=== PATIENT | female | born 1950 | race Caucasian/White ===

== ENCOUNTER 2024-04-03 08:51 | Inpatient (IN) | payer MEDICARE, MEDICAID ==
[~2024-04-03] VITALS: Ht 170.2 cm; Wt 92.0 kg
--- NOTE | 2024-04-03 09:02 | ECG ---
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
[2024-04-03 09:20] VITALS: PULSE 88; RESP 18; O2SAT 97
--- NOTE | 2024-04-03 09:28 | ED.PDOC ---
HPI Comments 73Y F with PMHx dementia and HTN presents to ED for chief complaint elevated blood pressure. Pt states she is experiencing palpitations, chest tightness, and nausea. Pt denies SOB, vomiting, and diarrhea. No other symptoms reported. BP 174/88 during triage assessment. Chief Complaint: High Blood Pressure Time Seen by MD: 09:17 Reviewed Notes: Nurses Notes, Medications, Allergies Allergies: Coded Allergies: NO KNOWN ALLERGIES (Unverified , 04/03/24) Information Source: Patient Mode of Arrival: EMS Severity: Mild Timing: Hours Duration: Since onset Location: Substernal Radiation: No Radiation Quality: Tightness Onset: At Rest Cardiac Risk Factors: HTN PE Risk Factors: None History of: None Modifying Factors: Nothing Associated Signs and Symptoms: Other Past Medical History PAST MEDICAL HISTORY: Dementia, HTN Surgical History: Denies all surgeries EKG TECH History: Denies all EKG TECH Hx Family History Family History: Unknown Social History Smoker: Non-Smoker Alcohol: Denies ETOH Use Drugs: Denies Drug Use Lives In: Home Constitutional: denies: chills, diaphoresis, fatigue, fever, malaise, sweats, weakness, others EENTM: denies: blurred vision, double vision, ear bleeding, ear discharge, ear drainage, ear pain, ear ringing, eye pain, eye redness, hearing loss, mouth pain, mouth swelling, nasal discharge, nose bleeding, nose congestion, nose pain, photophobia, tearing, throat pain, throat swelling, voice changes, others Respiratory: denies: cough, hemoptysis, orthopnea, SOB at rest, shortness of breath, SOB with excertion, stridor, wheezing, others Cardiovascular: reports: chest pain, palpitations; denies: dizzy spells, diaphoresis, Dyspnea on exertion, edema, irregular heart beat, left arm pain, lightheadedness, PND, syncope, others Gastrointestinal: reports: nausea; denies: abdomen distended, abdominal pain, blood streaked bowels, constipated, diarrhea, dysphagia, difficulty swallowing, hematemesis, melena, poor appetite, poor fluid intake, rectal bleeding, rectal pain, vomiting, others Genitourinary: denies: abnormal vagina bleeding, burning, dyspareunia, dysuria, flank pain, frequency, hematuria, incontinence, pain, , vagina discharge, urgency, others Neurological: denies: dizziness, fainting, headache, left sided numbness, left sided weakness, numbness, paresthesia, pre-existing deficit, right sided numbness, right sided weakness, seizure, speech problems, tingling, tremors, weakness, others Musculoskeletal: denies: back pain, gout, joint pain, joint swelling, muscle pain, muscle stiffness, neck pain, others Integumetry: denies: bruises, change in color, change in hair/nails, dryness, laceration, lesions, lumps, rash, wounds, others Allergic/Immunocompromised: denies: Difficulty Healing, Frequent Infections, Hives, Itching, others Hematologic/Lymphatic: denies: anemia, blood clots, easy bleeding, easy bruising, swollen glands, others Endocrine: denies: excessive hunger, excessive sweating, excessive thirst, excessive urination, flushing, intolerance to cold, intolerance to heat, unexplained weight gain, unexplained weight loss, others Psychiatric: denies: anxiety, bipolar disorder, depression, hopeless, panic disorder, schizophrenia, sleepless, suicidal, others All Other Systems: Reviewed and Negative Physical Exam General Appearance: No Apparent Distress, Normal HEENT: Normal ENT Inspection, Pharynx Normal, TMs Normal Neck: Full Range of Motion, Non-Tender, Normal, Normal Inspection Respiratory: Chest Non-Tender, Lungs Clear, No Accessory Muscle Use, No Respiratory Distress, Normal Breath Sounds Cardiovascular: No Edema, No JVD, No Murmur, No Gallop, Normal Peripheral Pulses, Regular Rate/Rhythm Breast Exam: Deferred Gastrointestinal: No Organomegaly, Non Tender, No Pulsatile Mass, Normal Bowel Sounds, Soft Genitalia: Deferred Pelvic: Deferred Rectal: Deferred Extremities: No calf tenderness, Normal capillary refill, Normal inspection, Normal range of motion, Non-tender, No pedal edema Musculoskeletal : Apperance: Normal Neurologic: Alert, equipment validation specialist II-XII nml as Tested, No Motor Deficits, Normal Affect, Normal Mood, No Sensory Deficits Cerebellar Function: NOT DONE Reflexes: NOT DONE Skin: Dry, Normal Color, Warm Lymphatic: No Adenopathy Was a procedure done? Was a procedure done?: No CP Differential Dx Differential Diagnosis: Electrolyte Disorder, MAT, PAC's Differential Diagnosis: HTN Essential, HTN Accelerated Differential Diagnosis: Myocardial Infarction, Pericarditis X-Ray, Labs, Meds, VS Vital Signs Date Time Temp Pulse Resp B/P (MAP) Pulse Ox O2 Delivery O2 Flow Rate FiO2 04/03/24 12:29 106 17 95 Room Air 04/03/24 12:29 98.4 106 17 169/112 (131) 95 98.4 04/03/24 11:54 98.3 117 20 191/96 (127) 96 98.3 04/03/24 09:20 88 18 97 Room Air* 0 21 04/03/24 09:20 98.7 88 18 154/86 (108) 97 98.7 04/03/24 09:01 98.1 99 16 174/88 (116) 99 04/03/24 08:56 82 Lab Test 04/03/24 10:35 04/03/24 09:35 Range/Units Troponin I High Sensitivity 23 23 </=34 ng/L White Blood Count 7.9 4.4-10.8 10^3/uL Red Blood Count 5.12 4.0-5.20 10^6/uL Hemoglobin 14.0 12.2-16.2 g/dL Hematocrit 41.6 36.0-46.0 % Mean Corpuscular Volume 81.3 80.0-100.0 fL Mean Corpuscular Hemoglobin 27.4 L 28.0-32.0 pg Mean Corpuscular Hemoglobin Concent 33.7 32.0-36.0 g/dL Red Cell Distribution Width 16.1 H 11.8-14.3 % Platelet Count 156 140-450 10^3/uL Mean Platelet Volume 7.1 6.9-10.8 fL Neutrophils (%) (Auto) 59.6 37.0-80.0 % Lymphocytes (%) (Auto) 29.1 10.0-50.0 % Monocytes (%) (Auto) 8.8 0.0-12.0 % Eosinophils (%) (Auto) 2.1 0.0-7.0 % Basophils (%) (Auto) 0.4 0.0-2.0 % Neutrophils # (Auto) 4.7 1.6-8.6 10 ^3/uL Lymphocytes # (Auto) 2.3 0.4-5.4 10 ^3/uL Monocytes # (Auto) 0.7 0-1.3 10 ^3/uL Eosinophils # (Auto) 0.2 0-0.8 10 ^3/uL Basophils # (Auto) 0 0-0.2 10 ^3/uL Nucleated Red Blood Cells 0.1 % Sodium Level 138 136-145 mmol/L Potassium Level 3.9 3.5-5.1 mmol/L Chloride Level 102 98-107 mmol/L Carbon Dioxide Level 28 20-31 mmol/L Anion Gap 8 5-15 Blood Urea Nitrogen 16 9-23 mg/dL Creatinine 0.84 0.550-1.02 mg/dL Glomerular Filtration Rate Calc 74 >90 mL/min BUN/Creatinine Ratio 19.0 10.0-20.0 Serum Glucose 145 H 74-106 mg/dL Calcium Level 10.9 H 8.7-10.4 mg/dL Time of 1ST Reevaluation: 09:47 Reevaluation 1ST: Unchanged Patient Education/Counseling: Diagnosis, Treatment Family Education/Counseling: No Family Present Departure 1 Departure Time of Disposition: 12:31 (Patient presented with hypertension and symptoms concerning for hypertensive emergency. Patient is receiving iv blood pressure medications requiring intensive monitoring. Data: 1. I ordered and reviewed the result of at least 3 labs including a CBC, BMP, and Urinalysis. 2. I indepen dently interpreted the following tests: CT Brain: Which appears benign. EKG which is Normal Sinus RhythmRisk:This patient has a high risk of morbidity due to further diagnostic testing or treatment and may suffer from an acute cardiac disorder. Workup reveals hypertensive emergency and patient should be admitted for further workup. and possible expert consultation. ) Impression: Primary Impression: Hypertensive emergency Additional Impression: Acute chest pain Disposition: 09 ADMITTED INPATIENT Admit to: Med Surg Condition: Serious Critical Care Note Critical Care Time?: Yes Critical care comment: Acute chest pain Authorized and Performed by: Nuha Dubois MD Total critical care time: Approximately 37 minutes Due to a high probability of clinically significant, life threatening deterioration, the patient required my highest level of preparedness to intervene emergently and I personally spent this critical care time directly and personally managing the patient. This critical care time included obtaining a history; examining the patient; pulse oximetry; ordering and review of studies; arranging urgent treatment with development of a management plan; evaluation of patient's response to treatment; frequent reassessment; and, discussions with other providers. This critical care time was performed to assess and manage the high probability of imminent, life-threatening deterioration that could result in multi-organ failure. It was exclusive of separately billable procedures and treating other patients and teaching time. Please see my other sections and the rest of the note for further information on patient assessment and treatment. Stability Stability form required: No Heart Score Heart Score: Heart Score Response (Comments) Value History Slightly Suspicious 0 EKG Repolarization Disturb 1 Age >65 2 Risk Factors 1 or 2 risk factors 1 Troponin 1-2 x's Normal limit 1 Total 5 I personally scribed for NUHA DUBOIS MD ([email or web address]) on 04/03/24 at 09:28. Electronically submitted by Nila Grubbs ([email or web address]). NUHA DUBOIS MD Apr 03, 2024 09:28
[2024-04-03 09:49] LABS: Basophils # (auto) 0 10 ^3/uL (0-0.2); Basophils % (auto) 0.4 % (0.0-2.0); Eosinophils # (auto) 0.2 10 ^3/uL (0-0.8); Eosinophils % (auto) 2.1 % (0.0-7.0); Hematocrit 41.6 % (36.0-46.0); Lymphocytes # (auto) 2.3 10 ^3/uL (0.4-5.4); Lymphocytes % (auto) 29.1 % (10.0-50.0); Mean Corpuscular Hemoglobin 27.4 pg (28.0-32.0); Mean Corpuscular Hgb Conc. 33.7 g/dL (32.0-36.0); Mean Corpuscular Volume 81.3 fL (80.0-100.0); Monocytes # (auto) 0.7 10 ^3/uL (0-1.3); Monocytes % (auto) 8.8 % (0.0-12.0); Neutrophils # (auto) 4.7 10 ^3/uL (1.6-8.6); Neutrophils % (auto) 59.6 % (37.0-80.0); Nucleated Red Blood Cells % 0.1 %; Platelet Count (auto) 156 10^3/uL (140-450); Red Blood Cells 5.12 10^6/uL (4.0-5.20); Red Cell Distribution Width 16.1 % (11.8-14.3); White Blood Cell 7.9 10^3/uL (4.4-10.8)
[2024-04-03 11:46] LABS: Chloride 102 mmol/L (98-107); Potassium 3.9 mmol/L (3.5-5.1); Sodium 138 mmol/L (136-145)
[2024-04-03 11:47] LABS: Anion Gap 8 (5-15); Carbon Dioxide 28 mmol/L (20-31)
[2024-04-03 11:53] LABS: Blood Urea Nitrogen 16 mg/dL (9-23)
[2024-04-03 12:08] LABS: Calcium 10.9 mg/dL (8.7-10.4)
[2024-04-03 12:10] LABS: Glucose 145 mg/dL (74-106)
[2024-04-03] MEDS: hydrALAZINE HCL 20 MG/ML VL IV ONE (13:15)
[2024-04-03] MEDS ORDERED: METO25TA93 PO (13:44)
[2024-04-03] MEDS ORDERED: QUET100T47 PO (13:44)
[2024-04-03] MEDS ORDERED: MELA3TAB42 OR (13:44)
[2024-04-03] MEDS ORDERED: DIVA-139 PO (13:44)
[2024-04-03] MEDS ORDERED: LEVO50TA7 PO (13:44)
[2024-04-03] MEDS ORDERED: PANT40TA2 PO (13:44)
[2024-04-03] MEDS ORDERED: LORA-1121 PO (13:44)
[2024-04-03] MEDS ORDERED: APIX5TAB PO (13:44)
[2024-04-03] MEDS ORDERED: METF-372 PO (13:44)
[2024-04-03] MEDS ORDERED: ONDANSETRON HCL 4 MG/2 ML VIAL IV PRN (13:45)
[2024-04-03] MEDS ORDERED: MORPHINE SULFATE INJ 2 MG/ml SYRG IV PRN (13:45)
[2024-04-03] MEDS ORDERED: NITROGLYCERIN 0.4 MG SL TAB SL PRN (13:45)
[2024-04-03] MEDS ORDERED: DEXTROSE (50%) 50ML SYRG IV PRN (13:45)
--- NOTE | 2024-04-03 13:58 | DVHHP2 ---
History of Present Illness Reason for Visit: Hypertension History of Present Illness Xochitl Lane is a 73-year-old female with past medical history of diabetes, hypertension, hyperlipidemia, atrial fibrillation, anxiety, dementia, and osteoarthritis, who came to the hospital today due to hypertension. Patient has a history of dementia, she is alert and oriented, however she is not able to answer questions appropriately. When asked why she came she stated to "get a check up" at first, then she stated "because they don't have doctors where I live". She is unclear on what medications she takes or why. Will admit and treat her hypertension. 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 Endocrine: Diabetes, Hypothyroidism Past Surgical History: Appendectomy, Cholecystectomy Family History: None Smoke: No ALCOHOL: none Drugs: None Lives: Skilled Nursing Review of Systems Constitutional: No: Fever, Chills, Sweats, Weakness, Malaise, Other Eyes: No: Pain, Vision change, Conjunctivae inflammation, Eyelid inflammation, Other, Redness ENT: No: Ear pain, Ear discharge, Nose pain, Nose discharge, Nose congestion, Mouth pain, Mouth swelling, Throat pain, Throat swelling, Other Respiratory: No: Cough, Dry, Shortness of breath, SOB with excertion, Wheezing, Hemoptysis, Pleuritic Pain, Sputum, Wheezing, Other Cardiovascular: No: Chest Pain, Palpitations, Orthopnea, Paroxysmal Noc. Dyspnea, Edema, Lt Headedness, Other Gastrointestinal: No: Nausea, Vomiting, Abdominal Pain, Diarrhea, Constipation, Melena, Hematochezia, Other Genitourinary: No Dysuria, No Frequency, No Incontinence, No Hematuria, No Retention, No Other Musculoskeletal: No: other, neck pain, shoulder pain, arm pain, back pain, hand pain, leg pain, foot pain Skin: No: Rash, Lesions, Jaundice, Bruising, Other Neurological: No: Weakness, Numbness, Incoordination, Change in speech, Confusion, Seizures, Other Allergies: Coded Allergies: Codeine (Verified Allergy, Unknown, 04/03/24) NSAIDs (Verified Allergy, Unknown, 04/03/24) Penicillins (Verified Allergy, Unknown, 04/03/24) Medications Current Medications Medications Dose Ordered Sig/Mee Route Start Time Stop Time Status Last Admin Dose Admin Sodium Chloride 10 ml Q8HR IV 04/03/24 14:00 UNV Acetaminophen/ Hydrocodone Bitart 1 tab Q4HP PRN PO 04/03/24 13:45 UNV Ondansetron HCl 4 mg Q4HP PRN IV 04/03/24 13:45 UNV Docusate Sodium 100 mg BIDPRN PRN PO 04/03/24 13:45 UNV Acetaminophen 650 mg Q6HP PRN PO 04/03/24 13:45 UNV Nitroglycerin 0.4 mg Q5MINP PRN SL 04/03/24 13:45 UNV Morphine Sulfate 2 mg Q30M PRN IV 04/03/24 13:45 UNV Exam Vital Signs Vital Signs Date Time Temp Pulse Resp B/P (MAP) Pulse Ox O2 Delivery O2 Flow Rate FiO2 04/03/24 13:15 191/96 04/03/24 12:29 106 17 95 Room Air 04/03/24 12:29 98.4 98.4 04/03/24 09:20 0 21 General Appearance: Alert, Oriented X3, Cooperative, mild distress HEENT: Atraumatic, PERRLA Respiratory: Clear to auscultation, Normal air movement Cardiovascular: Normal S1, Normal S2, Other (Tachycardia) Abdominal: Normal bowel sounds, Soft, No tenderness Extremities: No clubbing, No cyanosis, No edema, Normal pulses, No tenderness/swelling Skin: No rashes, No significant lesion (lesion to left nostril) Neuro: Normal gait, Normal speech, Strength at 5/5 X4 ext, Normal tone Psych/Mental Status: Mood NL, Other (altered) Labs/Xrays Labs Test 04/03/24 12:46 04/03/24 09:35 Range/Units White Blood Count 7.9 4.4-10.8 10^3/uL Red Blood Count 5.12 4.0-5.20 10^6/uL Hemoglobin 14.0 12.2-16.2 g/dL Hematocrit 41.6 36.0-46.0 % Mean Corpuscular Volume 81.3 80.0-100.0 fL Mean Corpuscular Hemoglobin 27.4 L 28.0-32.0 pg Mean Corpuscular Hemoglobin Concent 33.7 32.0-36.0 g/dL Red Cell Distribution Width 16.1 H 11.8-14.3 % Platelet Count 156 140-450 10^3/uL Mean Platelet Volume 7.1 6.9-10.8 fL Neutrophils (%) (Auto) 59.6 37.0-80.0 % Lymphocytes (%) (Auto) 29.1 10.0-50.0 % Monocytes (%) (Auto) 8.8 0.0-12.0 % Eosinophils (%) (Auto) 2.1 0.0-7.0 % Basophils (%) (Auto) 0.4 0.0-2.0 % Neutrophils # (Auto) 4.7 1.6-8.6 10 ^3/uL Lymphocytes # (Auto) 2.3 0.4-5.4 10 ^3/uL Monocytes # (Auto) 0.7 0-1.3 10 ^3/uL Eosinophils # (Auto) 0.2 0-0.8 10 ^3/uL Basophils # (Auto) 0 0-0.2 10 ^3/uL Nucleated Red Blood Cells 0.1 % Sodium Level 138 136-145 mmol/L Potassium Level 3.9 3.5-5.1 mmol/L Chloride Level 102 98-107 mmol/L Carbon Dioxide Level 28 20-31 mmol/L Anion Gap 8 5-15 Blood Urea Nitrogen 16 9-23 mg/dL Creatinine 0.84 0.550-1.02 mg/dL Glomerular Filtration Rate Calc 74 >90 mL/min BUN/Creatinine Ratio 19.0 10.0-20.0 Serum Glucose 145 H 74-106 mg/dL Calcium Level 10.9 H 8.7-10.4 mg/dL Assessment/Plan Assessment/Plan Assessment: Hypertensive emergency, Diabetes, Dementia, Anxiety, Hypothyroidism, Plan: Admit to Tele, Home medications reconciled, Consider Cardiology consult, PRN antihypertensives, Continuous tele monitoring, Accu checks Q AC&HS with sliding scale, Plan discussed with: Patient My Orders Orders - LUCINDA BARRETO Procedure Category Date Status Time Admit ADMIT 04/03/24 Transmitted 13:37 Code Status CODE 04/03/24 Transmitted 13:37 Sodium Chloride Lock PHA 04/03/24 Logged (Saline Lock Ns) 14:00 Hydrocodone-Acet PHA 04/03/24 Logged 5/325mg Tab ([place] 13:45 Ondansetron Hcl PHA 04/03/24 Logged (Zofran) 13:45 Docusate Sodium PHA 04/03/24 Logged Capsule (Colace 13:45 Fall Risk Precautions MEET 04/03/[address] 13:37 Complete Blood Count LAB 04/04/24 Verified 04:00 Comprehensive LAB 04/04/24 Verified Metabolic Panel 04:00 Cardiac DIET 04/03/24 Transmitted Diet-2gna,Lofat,Lochol Dinner Condition: Serious MEET 04/03/24 In Process 13:37 Acetaminophen Tablet PHA 04/03/24 Logged (Tylenol Tablet) 13:45 Nitroglycerin PHA 04/03/24 Logged Sublingual (Ntrostat 13:45 Morphine Sulfate PHA 04/03/24 Logged Injection 13:45 Stat Ekg For Chest MEET 04/03/24 In Process Pain 13:37 Notify Md Of Changes MEET 04/03/24 In Process From Base 13:37 Manager Relocation For MEET 04/03/24 In Process 24 Hours 13:37 Emergency Dysrhythmia MEET 04/03/24 In Process Protocol 13:37 Rhythm Strips Once [facility] 04/03/24 In Process Every Shift 13:37 Oxygen By Nasal RT 04/03/24 Transmitted Cannula 13:37 Glucose Blood PHA 04/03/24 Verified (Accu-Chek Comfort 17:00 Bedtime Insulin Scale PHA 04/03/24 Verified 22:00 Moderate Insulin Ss PHA 04/03/24 Verified 17:00 Dextrose 50% Syringe PHA 04/03/24 Verified 13:45 Apixaban (Eliquis) PHA 04/03/24 Verified 22:[address] Tablet PHA 04/03/24 Verified (Depakote "Dr" Tabl 22:00 Levothyroxine Tablet PHA 04/04/24 Verified (Synthroid Tablet) 10:00 Lorazepam Tablet PHA 04/03/24 Verified (Ativan Tablet) 22:00 Pantoprazole Tablet PHA 04/04/24 Verified (Protonix Tablet) 10:00 Quetiapine Fumarate PHA 04/03/24 Verified Tablet (Seroquel Tab 18:00 (Nf) Melatonin PHA 04/03/24 Verified 22:00 (Nf) Metoprolol PHA 04/04/24 Verified Succinate (Metoprolol 10:00 Date of Service: Apr 03, 2024 Billing Provider: LUCINDA BARRETO Common Visit Codes: [id number] INP/OBS CARE (MOD) LUCINDA BARRETO Apr 03, 2024 13:58
[2024-04-03] MEDS: SODIUM CHLOR 0.9% PF (SALINE LOCK) 10ML VIAL/SYR IV SCH (14:00)
[2024-04-03] MEDS: METOPROLOL SUCCINATE XL 50 MG TAB PO ONE (15:00)
[2024-04-03] MEDS: ACCU-CHEK COMFORT CURVE STRIP VI SCH (17:04)
[2024-04-03] MEDS: InsuLIN REG 1unit/0.01ml Soln (100units/ml) SC SCH ×2 (17:06→22:25)
[2024-04-03] MEDS: QUEtiapine FUMARATE 100 MG TAB PO SCH (19:01)
[2024-04-03 19:35] VITALS: PULSE 96; RESP 16; O2SAT 95
[2024-04-03 21:00] VITALS: BP 164/84; PULSE 74; RESP 18; TEMP 97.2; O2SAT 96
[2024-04-03] MEDS: MELATONIN 3 MG PO SCH (22:00)
[2024-04-03] MEDS: LORazepam 0.5 MG TAB PO SCH (22:05)
[2024-04-03] MEDS: APIXABAN 5 MG TAB PO SCH (22:06)
[2024-04-03 22:11] VITALS: BP 164/84; PULSE 78; RESP 20; TEMP 97.8; O2SAT 96
[2024-04-03] MEDS: hydrALAZINE HCL 20 MG/ML VL IV PRN (22:30)
[2024-04-04] MEDS: TEMAZEPAM 15 MG CAP PO ONE (00:35)
[2024-04-04 01:00] VITALS: BP 116/67; PULSE 96; RESP 17; TEMP 97.4; O2SAT 96
[2024-04-04 05:00] VITALS: BP 146/80; PULSE 94; RESP 18; TEMP 97.3; O2SAT 97
[2024-04-04] MEDS: ACETAMINOPHEN 325 MG TAB PO PRN (06:15)
[2024-04-04] MEDS: LEVOTHYROXINE SODIUM 50 MCG TAB PO SCH (06:15)
[2024-04-04 07:07] LABS: Basophils # (auto) 0 10 ^3/uL (0-0.2); Basophils % (auto) 0.6 % (0.0-2.0); Eosinophils # (auto) 0.1 10 ^3/uL (0-0.8); Eosinophils % (auto) 1.7 % (0.0-7.0); Hematocrit 42.7 % (36.0-46.0); Hemoglobin 14.4 g/dL (12.2-16.2); Lymphocytes # (auto) 1.9 10 ^3/uL (0.4-5.4); Lymphocytes % (auto) 26.6 % (10.0-50.0); Mean Corpuscular Hemoglobin 27.2 pg (28.0-32.0); Mean Corpuscular Hgb Conc. 33.8 g/dL (32.0-36.0); Mean Corpuscular Volume 80.5 fL (80.0-100.0); Monocytes # (auto) 0.8 10 ^3/uL (0-1.3); Monocytes % (auto) 10.7 % (0.0-12.0); Neutrophils # (auto) 4.4 10 ^3/uL (1.6-8.6); Neutrophils % (auto) 60.4 % (37.0-80.0); Platelet Count (auto) 159 10^3/uL (140-450); Red Cell Distribution Width 16.2 % (11.8-14.3); White Blood Cell 7.2 10^3/uL (4.4-10.8)
[2024-04-04 07:30] LABS: Alanine Aminotransferase 11 U/L (7-40); Alkaline Phosphatase 89 U/L (46-116); Anion Gap 8 (5-15); BUN/Creatinine Ratio 16.3 (10.0-20.0); Blood Urea Nitrogen 13 mg/dL (9-23); Carbon Dioxide 26 mmol/L (20-31); Chloride 104 mmol/L (98-107); Sodium 138 mmol/L (136-145)
[2024-04-04 07:31] LABS: Albumin 4.6 g/dL (3.2-4.8); Calcium 10.8 mg/dL (8.7-10.4); Glucose 175 mg/dL (74-106); Potassium 3.5 mmol/L (3.5-5.1)
[2024-04-04 07:32] LABS: Aspartate Aminotransferase 12 U/L (13-40); Bilirubin, Total 0.8 mg/dL (0.2-1.0)
[2024-04-04 08:57] VITALS: BP 135/78; PULSE 74; RESP 20; TEMP 98.5; O2SAT 97
[2024-04-04] MEDS: PANTOPRAZOLE 40 MG TAB PO SCH (09:11)
[2024-04-04] MEDS: METOPROLOL SUCCINATE XL 50 MG TAB PO SCH (09:11)
[2024-04-04] MEDS: HYDROcodone-ACET 5/325MG TAB PO PRN (12:09)
[2024-04-04 13:27] VITALS: BP 147/79; PULSE 98; RESP 20; TEMP 97.9; O2SAT 93
[2024-04-04 17:08] VITALS: BP 149/91; PULSE 93; RESP 20; TEMP 98.1; O2SAT 98
[2024-04-04 20:58] VITALS: BP 173/83; PULSE 78; RESP 18; TEMP 97.5; O2SAT 97
[2024-04-04] MEDS: MUPIROCIN 2% OINT 15gm or 22gm FOR MRSA NARES EACHNOSTRI SCH (21:45)
[2024-04-04] MEDS: hydrALAZINE HCL 10 MG TAB PO PRN (21:56)
--- NOTE | 2024-04-05 07:46 | DVH ---
EXAM: CHEST PORTABLE Indication: chest pain Technique: Single frontal view of the chest was obtained Comparison: None FINDINGS: Lines and Tubes: None Lungs: No focal consolidation. Pleura: No effusion. No pneumothorax. Cardiomediastinal contours: Unremarkable Bones: No acute osseous abnormality. IMPRESSION: No acute cardiopulmonary disease. I GARCIA
[2024-04-05 09:00] VITALS: BP 167/92; PULSE 83; RESP 18; O2SAT 95
[2024-04-05 11:19] VITALS: BP 162/91; PULSE 89; RESP 18; O2SAT 97
--- NOTE | 2024-04-05 12:00 | DVHPN2 ---
Subjective Still confused Refusing her medications Blood pressure is still high Changes from previous H/P or p: Changes Eyes: No Pain, No Vision change, No Conjunctivae inflammation, No Eyelid inflammation, No Other, No Redness ENT: No Ear pain, No Ear discharge, No Nose pain, No Nose discharge, No Nose congestion, No Mouth pain, No Mouth swelling, No Throat pain, No Throat swelling, No Other Cardiovascular: No Chest Pain, No Palpitations, No Orthopnea, No Paroxysmal Noc. Dyspnea, No Edema, No Lt Headedness, No Other Respiratory: No Cough, No Dry, No Shortness of breath, No SOB with excertion, No Wheezing, No Hemoptysis, No Pleuritic Pain, No Sputum, No Other Gastrointestinal: No Nausea, No Vomiting, No Abdominal Pain, No Diarrhea, No Constipation, No Melena, No Hematochezia, No Other Genitourinary: No Dysuria, No Frequency, No Incontinence, No Hematuria, No Retention, No Other Musculoskeletal: No other, No neck pain, No shoulder pain, No arm pain, No back pain, No hand pain, No leg pain, No foot pain Skin: No Rash, No Lesions, No Jaundice, No Bruising, No Other Objective Vitals Vital Signs Date Time Temp Pulse Resp B/P (MAP) Pulse Ox O2 Delivery O2 Flow Rate FiO2 04/05/24 11:19 89 18 162/91 (114) 97 04/05/24 08:01 Room Air* 0 21 04/04/24 20:58 97.5 97.5 Intake/Output Intake and Output 04/05/24 07:00 Intake Total 3120 ml Balance 3120 ml Intake Oral 3120 ml # Voids 10 General Appearance: Alert, Oriented X3 Lungs: Clear to auscultation, Normal air movement Cardiovascular: Regular rate, Normal S1, Normal S2 Abdomen: Normal bowel sounds, Soft, No tenderness Extremities: No edema Medications Current Medications Medications Dose Ordered Sig/Mee Route Start Time Stop Time Status Last Admin Dose Admin Sodium Chloride 10 ml Q8HR IV 04/03/24 14:00 04/05/24 06:17 10 ML Acetaminophen/ Hydrocodone Bitart 1 tab Q4HP PRN PO 04/03/24 13:45 04/04/24 12:09 1 TAB Ondansetron HCl 4 mg Q4HP PRN IV 04/03/24 13:45 Docusate Sodium 100 mg BIDPRN PRN PO 04/03/24 13:45 Acetaminophen 650 mg Q6HP PRN PO 04/03/24 13:45 04/04/24 17:25 650 MG Nitroglycerin 0.4 mg Q5MINP PRN SL 04/03/24 13:45 Morphine Sulfate 2 mg Q30M PRN IV 04/03/24 13:45 Hold Diagnostic Test (Pha) 1 strip ACHS 04/03/24 17:00 04/05/24 11:36 1 STRIP Insulin Human Regular HS SC 04/03/24 22:00 04/04/24 21:49 4 UNITS Insulin Human Regular AC SC 04/03/24 17:00 04/05/24 11:46 3 UNITS Dextrose 50 ml UD PRN IV 04/03/24 13:45 Apixaban 5 mg BID PO 04/03/24 22:00 04/05/24 10:25 5 MG Divalproex Sodium 125 mg BID PO 04/03/24 22:00 Hold Levothyroxine Sodium 50 mcg DAILY@0700 PO 04/04/24 07:00 04/05/24 06:23 50 MCG Lorazepam 0.5 mg HS PO 04/03/24 22:00 04/04/24 21:56 0.5 MG Pantoprazole Sodium 40 mg DAILY PO 04/04/24 10:00 04/05/24 10:25 40 MG Quetiapine Fumarate 100 mg QID PO 04/03/24 18:00 04/05/24 11:29 100 MG Patient Own Medication 3 mg HS PO 04/03/24 22:00 Metoprolol Succinate 25 mg DAILY PO 04/04/24 10:00 04/05/24 10:26 25 MG Mupirocin 1 applic BID EACHNOSTRI 04/04/24 22:00 04/09/24 21:59 04/05/24 10:29 1 APPLIC Hydralazine HCl 10 mg Q6HP PRN PO 04/04/24 17:30 04/05/24 08:33 10 MG Laboratory Results Laboratory Tests 04/04/24 06:24 Microbiology Microbiology Date/Time Source Procedure Growth Status 04/04/24 00:45 Nose MRSA Screen - Final Methicillin Resistant S.aureus Complete Assessment/Plan Assessment/Plan Uncontrolled hypertension Hypertensive emergency Type 2 diabetes Dementia Anxiety Hypothyroidism Atrial fibrillation Mixed hyperlipidemia Plan Increase metoprolol to 50 mg daily for better blood pressure control Continue the home medications including Eliquis and levothyroxine and Seroquel Sitter at the bedside Plan discussed with: Patient My Orders Orders - EFRAIN CASTRO MD Procedure Category Date Status Time Mupirocin 2% Oint PHA 04/04/24 In Process Mrsa Nares (Bactroban 22:00 Hydralazine Hcl PHA 04/04/24 In Process Tablet (Apresoline 17:30 Date of Service: Apr 05, 2024 Billing Provider: EFRAIN CASTRO MD Common Visit Codes: [id number] INP/OBS CARE(HIGH) EFRAIN CASTRO MD Apr 05, 2024 12:00
--- NOTE | 2024-04-05 12:01 | DVHPN2 ---
Subjective 73-year-old female with a history of hypertension, atrial fibrillation, dementia was admitted for confusion and uncontrolled hypertension Changes from previous H/P or p: Changes Eyes: No Pain, No Vision change, No Conjunctivae inflammation, No Eyelid inflammation, No Other, No Redness ENT: No Ear pain, No Ear discharge, No Nose pain, No Nose discharge, No Nose congestion, No Mouth pain, No Mouth swelling, No Throat pain, No Throat swelling, No Other Cardiovascular: No Chest Pain, No Palpitations, No Orthopnea, No Paroxysmal Noc. Dyspnea, No Edema, No Lt Headedness, No Other Respiratory: No Cough, No Dry, No Shortness of breath, No SOB with excertion, No Wheezing, No Hemoptysis, No Pleuritic Pain, No Sputum, No Other Gastrointestinal: No Nausea, No Vomiting, No Abdominal Pain, No Diarrhea, No Constipation, No Melena, No Hematochezia, No Other Genitourinary: No Dysuria, No Frequency, No Incontinence, No Hematuria, No Retention, No Other Musculoskeletal: No other, No neck pain, No shoulder pain, No arm pain, No back pain, No hand pain, No leg pain, No foot pain Skin: No Rash, No Lesions, No Jaundice, No Bruising, No Other Objective Vitals Vital Signs Date Time Temp Pulse Resp B/P (MAP) Pulse Ox O2 Delivery O2 Flow Rate FiO2 04/05/24 11:19 89 18 162/91 (114) 97 04/05/24 08:01 Room Air* 0 21 04/04/24 20:58 97.5 97.5 Intake/Output Intake and Output 04/05/24 07:00 Intake Total 3120 ml Balance 3120 ml Intake Oral 3120 ml # Voids 10 General Appearance: Alert, Oriented X3 Lungs: Clear to auscultation, Normal air movement Cardiovascular: Regular rate, Normal S1, Normal S2 Abdomen: Normal bowel sounds, Soft, No tenderness Extremities: No edema Medications Current Medications Medications Dose Ordered Sig/Mee Route Start Time Stop Time Status Last Admin Dose Admin Sodium Chloride 10 ml Q8HR IV 04/03/24 14:00 04/05/24 06:17 10 ML Acetaminophen/ Hydrocodone Bitart 1 tab Q4HP PRN PO 04/03/24 13:45 04/04/24 12:09 1 TAB Ondansetron HCl 4 mg Q4HP PRN IV 04/03/24 13:45 Docusate Sodium 100 mg BIDPRN PRN PO 04/03/24 13:45 Acetaminophen 650 mg Q6HP PRN PO 04/03/24 13:45 04/04/24 17:25 650 MG Nitroglycerin 0.4 mg Q5MINP PRN SL 04/03/24 13:45 Morphine Sulfate 2 mg Q30M PRN IV 04/03/24 13:45 Hold Diagnostic Test (Pha) 1 strip ACHS 04/03/24 17:00 04/05/24 11:36 1 STRIP Insulin Human Regular HS SC 04/03/24 22:00 04/04/24 21:49 4 UNITS Insulin Human Regular AC SC 04/03/24 17:00 04/05/24 11:46 3 UNITS Dextrose 50 ml UD PRN IV 04/03/24 13:45 Apixaban 5 mg BID PO 04/03/24 22:00 04/05/24 10:25 5 MG Divalproex Sodium 125 mg BID PO 04/03/24 22:00 Hold Levothyroxine Sodium 50 mcg DAILY@0700 PO 04/04/24 07:00 04/05/24 06:23 50 MCG Lorazepam 0.5 mg HS PO 04/03/24 22:00 04/04/24 21:56 0.5 MG Pantoprazole Sodium 40 mg DAILY PO 04/04/24 10:00 04/05/24 10:25 40 MG Quetiapine Fumarate 100 mg QID PO 04/03/24 18:00 04/05/24 11:29 100 MG Patient Own Medication 3 mg HS PO 04/03/24 22:00 Metoprolol Succinate 25 mg DAILY PO 04/04/24 10:00 04/05/24 10:26 25 MG Mupirocin 1 applic BID EACHNOSTRI 04/04/24 22:00 04/09/24 21:59 04/05/24 10:29 1 APPLIC Hydralazine HCl 10 mg Q6HP PRN PO 04/04/24 17:30 04/05/24 08:33 10 MG Laboratory Results Laboratory Tests 04/04/24 06:24 Microbiology Microbiology Date/Time Source Procedure Growth Status 04/04/24 00:45 Nose MRSA Screen - Final Methicillin Resistant S.aureus Complete Assessment/Plan Assessment/Plan Uncontrolled hypertension Hypertensive emergency Type 2 diabetes Dementia Anxiety Hypothyroidism Atrial fibrillation Mixed hyperlipidemia Plan Start her home medications Including Seroquel and metoprolol and levothyroxine and Eliquis Sitter at the bedside Full code Advance directives discussed for 20 minutes Plan discussed with: Patient, Other My Orders Orders - EFRAIN CASTRO MD Procedure Category Date Status Time Mupirocin 2% Oint PHA 04/04/24 In Process Mrsa Nares (Bactroban 22:00 Hydralazine Hcl PHA 04/04/24 In Process Tablet (Apresoline 17:30 Date of Service: Apr 04, 2024 Billing Provider: EFRAIN CASTRO MD Common Visit Codes: [id number] INP/OBS CARE(HIGH) Secondary Visit Codes: [id number] CARE PLAN 30 MINUTES EFRAIN CASTRO MD Apr 05, 2024 12:01
[2024-04-05] MEDS: METOPROLOL SUCCINATE XL 50 MG TAB PO ONE (14:06)
[2024-04-05 21:00] VITALS: BP 165/87; PULSE 87; RESP 18; TEMP 98.7; O2SAT 94
[2024-04-06 01:00] VITALS: BP 164/86; PULSE 87; RESP 19; TEMP 98.1; O2SAT 95
[2024-04-06] MEDS: METOPROLOL SUCCINATE XL 50 MG TAB PO SCH (01:32)
[2024-04-06 05:00] VITALS: BP 149/77; PULSE 90; RESP 19; TEMP 98; O2SAT 97
[2024-04-06 08:53] VITALS: BP 140/76; PULSE 81; RESP 17; TEMP 98.6; O2SAT 98
[2024-04-06] MEDS ORDERED: METOPROLOL SUCCINATE XL 50 MG TAB PO SCH (10:00)
--- NOTE | 2024-04-06 11:13 | DVHPN2 ---
Subjective No new complaints Blood pressure is still elevated Changes from previous H/P or p: Changes Eyes: No Pain, No Vision change, No Conjunctivae inflammation, No Eyelid inflammation, No Other, No Redness ENT: No Ear pain, No Ear discharge, No Nose pain, No Nose discharge, No Nose congestion, No Mouth pain, No Mouth swelling, No Throat pain, No Throat swelling, No Other Cardiovascular: No Chest Pain, No Palpitations, No Orthopnea, No Paroxysmal Noc. Dyspnea, No Edema, No Lt Headedness, No Other Respiratory: No Cough, No Dry, No Shortness of breath, No SOB with excertion, No Wheezing, No Hemoptysis, No Pleuritic Pain, No Sputum, No Other Gastrointestinal: No Nausea, No Vomiting, No Abdominal Pain, No Diarrhea, No Constipation, No Melena, No Hematochezia, No Other Genitourinary: No Dysuria, No Frequency, No Incontinence, No Hematuria, No Retention, No Other Musculoskeletal: No other, No neck pain, No shoulder pain, No arm pain, No back pain, No hand pain, No leg pain, No foot pain Skin: No Rash, No Lesions, No Jaundice, No Bruising, No Other Objective Vitals Vital Signs Date Time Temp Pulse Resp B/P (MAP) Pulse Ox O2 Delivery O2 Flow Rate FiO2 04/06/24 08:53 98.6 81 17 140/76 (97) 98 98.6 04/05/24 20:00 Room Air* 0 21 Intake/Output Intake and Output 04/06/24 07:00 Intake Total 3334 ml Balance 3334 ml Intake Oral 3334 ml # Voids 8 # Bowel Movements 1 General Appearance: Alert, Oriented X3 Lungs: Clear to auscultation, Normal air movement Cardiovascular: Regular rate, Normal S1, Normal S2 Abdomen: Normal bowel sounds, Soft, No tenderness Extremities: No edema Medications Current Medications Medications Dose Ordered Sig/Mee Route Start Time Stop Time Status Last Admin Dose Admin Sodium Chloride 10 ml Q8HR IV 04/03/24 14:00 04/06/24 05:34 10 ML Acetaminophen/ Hydrocodone Bitart 1 tab Q4HP PRN PO 04/03/24 13:45 04/04/24 12:09 1 TAB Ondansetron HCl 4 mg Q4HP PRN IV 04/03/24 13:45 Docusate Sodium 100 mg BIDPRN PRN PO 04/03/24 13:45 Acetaminophen 650 mg Q6HP PRN PO 04/03/24 13:45 04/04/24 17:25 650 MG Nitroglycerin 0.4 mg Q5MINP PRN SL 04/03/24 13:45 Morphine Sulfate 2 mg Q30M PRN IV 04/03/24 13:45 Hold Diagnostic Test (Pha) 1 strip ACHS 04/03/24 17:00 04/05/24 21:59 1 STRIP Insulin Human Regular HS SC 04/03/24 22:00 04/05/24 21:57 6 UNITS Insulin Human Regular AC SC 04/03/24 17:00 04/06/24 06:30 9 UNITS Dextrose 50 ml UD PRN IV 04/03/24 13:45 Apixaban 5 mg BID PO 04/03/24 22:00 04/05/24 21:58 5 MG Divalproex Sodium 125 mg BID PO 04/03/24 22:00 Hold Levothyroxine Sodium 50 mcg DAILY@0700 PO 04/04/24 07:00 04/05/24 06:23 50 MCG Lorazepam 0.5 mg HS PO 04/03/24 22:00 04/05/24 21:58 0.5 MG Pantoprazole Sodium 40 mg DAILY PO 04/04/24 10:00 04/05/24 10:25 40 MG Quetiapine Fumarate 100 mg QID PO 04/03/24 18:00 04/06/24 06:38 100 MG Patient Own Medication 3 mg HS PO 04/03/24 22:00 Mupirocin 1 applic BID EACHNOSTRI 04/04/24 22:00 04/09/24 21:59 04/05/24 10:29 1 APPLIC Hydralazine HCl 10 mg Q6HP PRN PO 04/04/24 17:30 04/05/24 20:30 10 MG Metoprolol Succinate 50 mg BID PO 04/06/24 01:30 04/06/24 01:32 50 MG Laboratory Results Laboratory Tests 04/04/24 06:24 HgA1c, TSH Test 04/06/24 06:00 Hemoglobin A1c 6.9 % A1C (<5.7) H Thyroid Stimulating Hormone (TSH) 0.64 uIU/mL (0.55-4.78) Microbiology Microbiology Date/Time Source Procedure Growth Status 04/04/24 00:45 Nose MRSA Screen - Final Methicillin Resistant S.aureus Complete Assessment/Plan Assessment/Plan Uncontrolled hypertension Hypertensive emergency Type 2 diabetes Dementia Anxiety Hypothyroidism Atrial fibrillation Mixed hyperlipidemia Plan Start her home medications Including Seroquel and metoprolol and levothyroxine and Eliquis Sitter at the bedside Full code Advance directives discussed for 20 minutes 04/06/2024: Hypertension: Increase metoprolol to 50 mg twice a day P.r.n. hydralazine Atrial fibrillation: Continue Eliquis and metoprolol Dementia with agitation: Continue Seroquel Sitter at the bedside for safety Full code Monitor closely Discharge planning once blood pressure is better controlled Plan discussed with: Patient, Other Date of Service: Apr 06, 2024 Billing Provider: EFRAIN CASTRO MD Common Visit Codes: [id number] INP/OBS CARE(HIGH) EFRAIN CASTRO MD Apr 06, 2024 11:13
[2024-04-06 12:49] VITALS: BP 141/71; PULSE 68; RESP 17; TEMP 98; O2SAT 97
[2024-04-06] MEDS: DOCUSATE SOD 100 MG CAP PO PRN (14:10)
[2024-04-06 16:55] VITALS: BP 148/76; PULSE 74; RESP 17; TEMP 98.2; O2SAT 97
[2024-04-06 21:00] VITALS: BP 153/77; PULSE 89; RESP 18; TEMP 98.2; O2SAT 98
[2024-04-07 01:00] VITALS: BP 148/74; PULSE 80; RESP 18; TEMP 98; O2SAT 99
[2024-04-07 05:00] VITALS: BP 152/78; PULSE 88; RESP 20; TEMP 98.2; O2SAT 99
[2024-04-07 09:00] VITALS: BP 130/64; PULSE 71; RESP 16; TEMP 97.6; O2SAT 96
[2024-04-07] MEDS: LOSARTAN POTASSIUM 25 MG TAB PO SCH (11:26)
--- NOTE | 2024-04-07 11:48 | DVHPN2 ---
Subjective No new complaints Blood pressure is still elevated Changes from previous H/P or p: Changes Eyes: No Pain, No Vision change, No Conjunctivae inflammation, No Eyelid inflammation, No Other, No Redness ENT: No Ear pain, No Ear discharge, No Nose pain, No Nose discharge, No Nose congestion, No Mouth pain, No Mouth swelling, No Throat pain, No Throat swelling, No Other Cardiovascular: No Chest Pain, No Palpitations, No Orthopnea, No Paroxysmal Noc. Dyspnea, No Edema, No Lt Headedness, No Other Respiratory: No Cough, No Dry, No Shortness of breath, No SOB with excertion, No Wheezing, No Hemoptysis, No Pleuritic Pain, No Sputum, No Other Gastrointestinal: No Nausea, No Vomiting, No Abdominal Pain, No Diarrhea, No Constipation, No Melena, No Hematochezia, No Other Genitourinary: No Dysuria, No Frequency, No Incontinence, No Hematuria, No Retention, No Other Musculoskeletal: No other, No neck pain, No shoulder pain, No arm pain, No back pain, No hand pain, No leg pain, No foot pain Skin: No Rash, No Lesions, No Jaundice, No Bruising, No Other Objective Vitals Vital Signs Date Time Temp Pulse Resp B/P (MAP) Pulse Ox O2 Delivery O2 Flow Rate FiO2 04/07/24 11:26 130/64 04/07/24 09:11 71 04/07/24 09:00 97.6 16 96 97.6 04/06/24 20:00 Room Air* 0 21 Intake/Output Intake and Output 04/07/24 07:00 Intake Total 2160 ml Balance 2160 ml Intake Oral 2160 ml # Voids 5 General Appearance: Alert, Oriented X3 Lungs: Clear to auscultation, Normal air movement Cardiovascular: Regular rate, Normal S1, Normal S2 Abdomen: Normal bowel sounds, Soft, No tenderness Extremities: No edema Medications Current Medications Medications Dose Ordered Sig/Mee Route Start Time Stop Time Status Last Admin Dose Admin Sodium Chloride 10 ml Q8HR IV 04/03/24 14:00 04/07/24 05:59 10 ML Acetaminophen/ Hydrocodone Bitart 1 tab Q4HP PRN PO 04/03/24 13:45 04/06/24 14:10 1 TAB Ondansetron HCl 4 mg Q4HP PRN IV 04/03/24 13:45 Docusate Sodium 100 mg BIDPRN PRN PO 04/03/24 13:45 04/06/24 14:10 100 MG Acetaminophen 650 mg Q6HP PRN PO 04/03/24 13:45 04/04/24 17:25 650 MG Nitroglycerin 0.4 mg Q5MINP PRN SL 04/03/24 13:45 Morphine Sulfate 2 mg Q30M PRN IV 04/03/24 13:45 Hold Diagnostic Test (Pha) 1 strip ACHS 04/03/24 17:00 04/07/24 11:23 1 STRIP Insulin Human Regular HS SC 04/03/24 22:00 04/06/24 21:31 6 UNITS Insulin Human Regular AC SC 04/03/24 17:00 04/07/24 11:30 3 UNITS Dextrose 50 ml UD PRN IV 04/03/24 13:45 Apixaban 5 mg BID PO 04/03/24 22:00 04/07/24 09:11 5 MG Divalproex Sodium 125 mg BID PO 04/03/24 22:00 Hold Levothyroxine Sodium 50 mcg DAILY@0700 PO 04/04/24 07:00 04/07/24 06:05 50 MCG Lorazepam 0.5 mg HS PO 04/03/24 22:00 04/06/24 21:33 0.5 MG Pantoprazole Sodium 40 mg DAILY PO 04/04/24 10:00 04/07/24 09:11 40 MG Quetiapine Fumarate 100 mg QID PO 04/03/24 18:00 04/07/24 11:21 100 MG Patient Own Medication 3 mg HS PO 04/03/24 22:00 Mupirocin 1 applic BID EACHNOSTRI 04/04/24 22:00 04/09/24 21:59 04/07/24 09:14 1 APPLIC Hydralazine HCl 10 mg Q6HP PRN PO 04/04/24 17:30 04/06/24 16:15 10 MG Metoprolol Succinate 50 mg BID PO 04/06/24 01:30 04/07/24 09:11 50 MG Losartan Potassium 25 mg DAILY PO 04/07/24 10:00 04/07/24 11:26 25 MG Laboratory Results Laboratory Tests 04/04/24 06:24 Microbiology Microbiology Date/Time Source Procedure Growth Status 04/04/24 00:45 Nose MRSA Screen - Final Methicillin Resistant S.aureus Complete Assessment/Plan Assessment/Plan Uncontrolled hypertension Hypertensive emergency Type 2 diabetes Dementia Anxiety Hypothyroidism Atrial fibrillation Mixed hyperlipidemia Plan Start her home medications Including Seroquel and metoprolol and levothyroxine and Eliquis Sitter at the bedside Full code Advance directives discussed for 20 minutes 04/06/2024: Hypertension: Increase metoprolol to 50 mg twice a day P.r.n. hydralazine Atrial fibrillation: Continue Eliquis and metoprolol Dementia with agitation: Continue Seroquel Sitter at the bedside for safety Full code Monitor closely Discharge planning once blood pressure is better controlled 04/07/2024: Continue metoprolol Add losartan 25 mg p.o. daily for better blood pressure control Continue physical therapy Continue Eliquis Sitter at the bedside Discharge planning in the next 1-2 days Plan discussed with: Patient My Orders Orders - EFRAIN CASTRO MD Procedure Category Date Status Time Losartan Tablet PHA 04/07/24 In Process (Cozaar Tablet) 10:00 Date of Service: Apr 07, 2024 Billing Provider: EFRAIN CASTRO MD Common Visit Codes: [id number] INP/OBS CARE(HIGH) EFRAIN CASTRO MD Apr 07, 2024 11:48
[2024-04-07 12:37] VITALS: BP 164/74; PULSE 77; RESP 18; TEMP 97.6; O2SAT 97
[2024-04-07 16:54] VITALS: BP 146/88; PULSE 87; RESP 18; TEMP 98.2; O2SAT 97
[2024-04-07 21:00] VITALS: BP 148/92; PULSE 92; RESP 18; TEMP 98.6; O2SAT 97
[2024-04-08 05:00] VITALS: BP 145/81; PULSE 73; RESP 18; O2SAT 96
[2024-04-08 09:00] VITALS: BP 138/73; PULSE 78; RESP 17; TEMP 98.3; O2SAT 96
--- NOTE | 2024-04-08 11:09 | DVHDS2 ---
Discharge Summary Date of Admission Apr 03, 2024 at 13:37 Date of Discharge: Apr 08, 2024 Labs/Diagnostic Data: Laboratory Results Test 04/08/24 06:21 04/06/24 06:00 04/04/24 06:24 04/03/24 12:46 POC Glucose 160 mg/dl (70-106) Hemoglobin A1c 6.9 % A1C (<5.7) Thyroid Stimulating Hormone (TSH) 0.64 uIU/mL (0.55-4.78) White Blood Count 7.2 10^3/uL (4.4-10.8) Red Blood Count 5.30 10^6/uL (4.0-5.20) Hemoglobin 14.4 g/dL (12.2-16.2) Hematocrit 42.7 % (36.0-46.0) Mean Corpuscular Volume 80.5 fL (80.0-100.0) Mean Corpuscular Hemoglobin 27.2 pg (28.0-32.0) Mean Corpuscular Hemoglobin Concent 33.8 g/dL (32.0-36.0) Red Cell Distribution Width 16.2 % (11.8-14.3) Platelet Count 159 10^3/uL (140-450) Mean Platelet Volume 7.3 fL (6.9-10.8) Neutrophils (%) (Auto) 60.4 % (37.0-80.0) Lymphocytes (%) (Auto) 26.6 % (10.0-50.0) Monocytes (%) (Auto) 10.7 % (0.0-12.0) Eosinophils (%) (Auto) 1.7 % (0.0-7.0) Basophils (%) (Auto) 0.6 % (0.0-2.0) Neutrophils # (Auto) 4.4 10 ^3/uL (1.6-8.6) Lymphocytes # (Auto) 1.9 10 ^3/uL (0.4-5.4) Monocytes # (Auto) 0.8 10 ^3/uL (0-1.3) Eosinophils # (Auto) 0.1 10 ^3/uL (0-0.8) Basophils # (Auto) 0 10 ^3/uL (0-0.2) Nucleated Red Blood Cells 0.0 % Sodium Level 138 mmol/L (136-145) Potassium Level 3.5 mmol/L (3.5-5.1) Chloride Level 104 mmol/L (98-107) Carbon Dioxide Level 26 mmol/L (20-31) Anion Gap 8 (5-15) Blood Urea Nitrogen 13 mg/dL (9-23) Creatinine 0.80 mg/dL (0.550-1.02) Glomerular Filtration Rate Calc 78 mL/min (>90) BUN/Creatinine Ratio 16.3 (10.0-20.0) Serum Glucose 175 mg/dL (74-106) Calcium Level 10.8 mg/dL (8.7-10.4) Total Bilirubin 0.8 mg/dL (0.2-1.0) Aspartate Amino Transferase (AST) 12 U/L (13-40) Alanine Aminotransferase (ALT) 11 U/L (7-40) Alkaline Phosphatase 89 U/L (46-116) Total Protein 7.0 g/dL (5.7-8.2) Albumin 4.6 g/dL (3.2-4.8) Troponin I High Sensitivity 24 ng/L (</=34) Other Laboratory Tests 04/04/24 06:24 Brief Hx & Hospital Course: Final diagnoses: Uncontrolled hypertension Hypertensive emergency Type 2 diabetes Dementia Anxiety Hypothyroidism Atrial fibrillation Mixed hyperlipidemia She was admitted for high BP, restarted her meds She was refusing her medications She does not taker her medications at home like ordered, she lives [facility], here BP is still slightly elevated but it's OK when she takes her meds Workup is negative, no need for more tests DC home on he same home meds F/U with PCP JACE Condition at Discharge: Stable Final Diagnosis/Problems List Uncontrolled hypertension Hypertensive emergency Type 2 diabetes Dementia Anxiety Hypothyroidism Atrial fibrillation Mixed hyperlipidemia Discharge Disposition: Home SNF Discharge Will this Physician continue t: No Discharge Statement: "Patient was advised to return to the ER or call 911 if any headaches, dizziness, shortness of breath, chest pain, abdominal pain, bleeding, fevers, or worsening of medical condition. Patient was counseled about treatment plan, medications, possible side effects, patientverbalized understanding. All questions were answered to the best of my ability. This discharge took greater then 30 minutes in planning, reviewing documentation, counseling the patient, and discussing with other team members." ASSESSMENT ASSESSMENT Assessment Date of Service: Apr 08, 2024 Billing Provider: EFRAIN CASTRO MD Common Visit Codes: [id number] DISCH DAY >30min EFRAIN CASTRO MD Apr 08, 2024 11:09
[2024-04-08 12:02] VITALS: BP 155/100; PULSE 77; RESP 17; TEMP 97.9; O2SAT 97
[2024-04-08 17:00] VITALS: BP 130/71; PULSE 70; RESP 17; TEMP 97.9; O2SAT 97
== END 2024-04-08 17:00 | disposition home or self-care (01) | DRG 305 ==
LOC: EDBD 08:51 → ER 08:51 → OVERFLOW 13:37 → TELE-EAST 21:56 → EAST 04-05 23:17
PROVIDERS: ADMIT Internal Medicine Geriatric Medicine; ATTEND Internal Medicine Geriatric Medicine
DX: I16.1 Hypertensive emergency (principal); I48.91 Unspecified atrial fibrillation; E11.9 Type 2 diabetes mellitus without complications; E03.9 Hypothyroidism, unspecified; E78.2 Mixed hyperlipidemia; I10 Essential (primary) hypertension; F41.9 Anxiety disorder, unspecified; F03.90 Unspecified dementia, unspecified severity, without behavioral disturbance, psychotic disturbance, mood disturbance, and anxiety; Z90.49 Acquired absence of other specified parts of digestive tract; Z88.5 Allergy status to narcotic agent; Z88.0 Allergy status to penicillin
CPT/HCPCS: 36415; 71045; 80048; 80053; 82962; 83036; 84443; 84484; 85025; 87081; 93005; 96372; 96374; 99291; G0378; J1815

== ENCOUNTER 2024-05-19 16:24 | Inpatient (IN) | payer MEDICARE, MEDICAID ==
[~2024-05-19] VITALS: Ht 162.6 cm; Wt 73.1 kg
[~2024-05-19 16:24] MED LIST: APIX5TAB PO; DIVA-139 PO; LEVO50TA7 PO; LORA-1121 PO; MELA3TAB42 OR; METF-372 PO; METO25TA93 PO; PANT40TA2 PO; QUET100T47 PO
[2024-05-19 18:07] LABS: Basophils # (auto) 0 10 ^3/uL (0-0.2); Basophils % (auto) 0.3 % (0.0-2.0); Eosinophils # (auto) 0.1 10 ^3/uL (0-0.8); Eosinophils % (auto) 1.3 % (0.0-7.0); Hematocrit 48.3 % (36.0-46.0); Hemoglobin 16.4 g/dL (12.2-16.2); Lymphocytes # (auto) 0.9 10 ^3/uL (0.4-5.4); Lymphocytes % (auto) 8.7 % (10.0-50.0); Mean Corpuscular Hemoglobin 27.9 pg (28.0-32.0); Mean Corpuscular Hgb Conc. 33.9 g/dL (32.0-36.0); Mean Corpuscular Volume 82.3 fL (80.0-100.0); Monocytes # (auto) 0.6 10 ^3/uL (0-1.3); Monocytes % (auto) 5.4 % (0.0-12.0); Neutrophils # (auto) 9.1 10 ^3/uL (1.6-8.6); Neutrophils % (auto) 84.3 % (37.0-80.0); Nucleated Red Blood Cells % 0.1 %; Platelet Count (auto) 184 10^3/uL (140-450); Red Blood Cells 5.87 10^6/uL (4.0-5.20); Red Cell Distribution Width 15.7 % (11.8-14.3); White Blood Cell 10.7 10^3/uL (4.4-10.8)
[2024-05-19 18:31] LABS: Alanine Aminotransferase 13 U/L (7-40); Alkaline Phosphatase 97 U/L (46-116); Anion Gap 8 (5-15); Aspartate Aminotransferase 14 U/L (13-40); BUN/Creatinine Ratio 18.4 (10.0-20.0); Blood Urea Nitrogen 16 mg/dL (9-23); Carbon Dioxide 28 mmol/L (20-31); Chloride 104 mmol/L (98-107); Lipase 39 U/L (12-53); Potassium 4.1 mmol/L (3.5-5.1); Sodium 140 mmol/L (136-145); Total Protein 7.7 g/dL (5.7-8.2)
[2024-05-19 18:32] LABS: Bilirubin, Total 0.9 mg/dL (0.2-1.0)
[2024-05-19 18:34] LABS: Albumin 5.1 g/dL (3.2-4.8); Calcium 10.5 mg/dL (8.7-10.4); Glucose 180 mg/dL (74-106)
--- NOTE | 2024-05-19 19:35 | ED.PDOC ---
GI ASSESSMENT HPI Comments 73 y.o female presents to the ED for a chief complaint of lower abdominal pain. Patient reports long history of abdominal pain, unable to specify when pain actually presented and is intermittent. Patient is a poor historian, states she has been to multiple [facility] homes with each placement having abdominal discomfort. She denies any medication use for pain at this time. She denies any fever, chills, dysuria, hematuria. Chief Complaint: Abdominal Pain Time Seen by MD: 19:25 Reviewed Notes: Nurses Notes, Medications, Allergies Allergies: Coded Allergies: Codeine (Verified Allergy, Unknown, 04/03/24) NSAIDs (Verified Allergy, Unknown, 04/03/24) Penicillins (Verified Allergy, Unknown, 04/03/24) Home Meds Reported Medications Metoprolol Succinate (Metoprolol Succinate Er) 25 Mg Tab, 1 TAB PO DAILY, #30 TAB 5 Refills 04/03/24 Melatonin (MELATONIN) 3 Mg Tab, 3 MG OR HS, TAB 04/03/24 Metformin Hydrochloride (Metformin Hcl) 1,000 Mg Tab, 1 TAB PO BID, #60 TAB 5 Refills 04/03/24 Lorazepam (ATIVAN TABLET) 0.5 Mg Tb, 1 TAB PO HS, #90 TAB 04/03/24 Quetiapine Fumerate (QUETIAPINE FUMARATE) 100 Mg Tab, 100 MG PO QID, TAB 04/03/24 Pantoprazole Sodium Sesquihydr (Protonix) 40 Mg Tab, 40 MG PO DAILY, #30 TAB 04/03/24 Apixaban Base (ELIQUIS) 5 Mg Tab, 5 MG PO BID, TAB 04/03/24 Levothyroxine Sodium (Levothyroxine Sodium) 50 Mcg Tab, 50 MCG PO DAILY, TAB 04/03/24 Divalproex Sodium (Depakote) 250 Mg Tab, 125 MG PO BID, #60 TAB 2 Refills 04/03/24 Information Source: Patient Mode of Arrival: walker Timing: Other Duration: Intermittent Quality: Aching Vomitus: None Stool: Normal Severity: Mild Recent: None Recent Hx of: None Pain Location: Suprapubic Modifying Factors: Nothing Associated sign and symptoms: Abdominal Pain Past Medical History PAST MEDICAL HISTORY: Dementia, HTN Surgical History: Denies all surgeries ENVIRONMENTAL HEALTH SPECIALIST History: Denies all ENVIRONMENTAL HEALTH SPECIALIST Hx Family History Family History: Unknown Social History Smoker: Non-Smoker Alcohol: Denies ETOH Use Drugs: Denies Drug Use Lives In: Home Constitutional: denies: chills, diaphoresis, fatigue, fever, malaise, sweats, weakness, others EENTM: denies: blurred vision, double vision, ear bleeding, ear discharge, ear drainage, ear pain, ear ringing, eye pain, eye redness, hearing loss, mouth pain, mouth swelling, nasal discharge, nose bleeding, nose congestion, nose pain, photophobia, tearing, throat pain, throat swelling, voice changes, others Respiratory: denies: cough, hemoptysis, orthopnea, SOB at rest, shortness of breath, SOB with excertion, stridor, wheezing, others Cardiovascular: denies: chest pain, dizzy spells, diaphoresis, Dyspnea on exertion, edema, irregular heart beat, left arm pain, lightheadedness, palpitations, PND, syncope, others Gastrointestinal: reports: abdominal pain; denies: abdomen distended, blood streaked bowels, constipated, diarrhea, dysphagia, difficulty swallowing, hematemesis, melena, nausea, poor appetite, poor fluid intake, rectal bleeding, rectal pain, vomiting, others Genitourinary: denies: abnormal vagina bleeding, burning, dyspareunia, dysuria, flank pain, frequency, hematuria, incontinence, pain, , vagina discharge, urgency, others Neurological: denies: dizziness, fainting, headache, left sided numbness, left sided weakness, numbness, paresthesia, pre-existing deficit, right sided numbness, right sided weakness, seizure, speech problems, tingling, tremors, weakness, others Musculoskeletal: denies: back pain, gout, joint pain, joint swelling, muscle pain, muscle stiffness, neck pain, others Integumetry: denies: bruises, change in color, change in hair/nails, dryness, laceration, lesions, lumps, rash, wounds, others Allergic/Immunocompromised: denies: Difficulty Healing, Frequent Infections, Hives, Itching, others Hematologic/Lymphatic: denies: anemia, blood clots, easy bleeding, easy bruising, swollen glands, others Endocrine: denies: excessive hunger, excessive sweating, excessive thirst, excessive urination, flushing, intolerance to cold, intolerance to heat, unexplained weight gain, unexplained weight loss, others Psychiatric: denies: anxiety, bipolar disorder, depression, hopeless, panic disorder, schizophrenia, sleepless, suicidal, others All Other Systems: Reviewed and Negative Physical Exam General Appearance: No Apparent Distress, Normal HEENT: Normal ENT Inspection, Pharynx Normal, TMs Normal Neck: Full Range of Motion, Non-Tender, Normal, Normal Inspection Respiratory: Chest Non-Tender, Lungs Clear, No Accessory Muscle Use, No Respiratory Distress, Normal Breath Sounds Cardiovascular: No Edema, No JVD, No Murmur, No Gallop, Normal Peripheral Pulses, Regular Rate/Rhythm Breast Exam: Deferred Gastrointestinal: No Organomegaly, Non Tender, No Pulsatile Mass, Normal Bowel Sounds, Soft Genitalia: Deferred Pelvic: Deferred Rectal: Deferred Extremities: No calf tenderness, Normal capillary refill, Normal inspection, Normal range of motion, Non-tender, No pedal edema Musculoskeletal : Apperance: Normal Neurologic: Alert, manager restaurant II-XII nml as Tested, No Motor Deficits, Normal Affect, Normal Mood, No Sensory Deficits Cerebellar Function: Normal Reflexes: Normal Skin: Dry, Normal Color, Warm Lymphatic: No Adenopathy Was a procedure done? Was a procedure done?: No GI differential Dx Differential Diagnosis: Constipation, Esophagitis, Gastroenteritis, Inflammatory BD, Food Poisoning, Viral X-Ray, Labs, Meds, VS Lab Test 05/19/24 17:48 Range/Units White Blood Count 10.7 4.4-10.8 10^3/uL Red Blood Count 5.87 H 4.0-5.20 10^6/uL Hemoglobin 16.4 H 12.2-16.2 g/dL Hematocrit 48.3 H 36.0-46.0 % Mean Corpuscular Volume 82.3 80.0-100.0 fL Mean Corpuscular Hemoglobin 27.9 L 28.0-32.0 pg Mean Corpuscular Hemoglobin Concent 33.9 32.0-36.0 g/dL Red Cell Distribution Width 15.7 H 11.8-14.3 % Platelet Count 184 140-450 10^3/uL Mean Platelet Volume 7.1 6.9-10.8 fL Neutrophils (%) (Auto) 84.3 H 37.0-80.0 % Lymphocytes (%) (Auto) 8.7 L 10.0-50.0 % Monocytes (%) (Auto) 5.4 0.0-12.0 % Eosinophils (%) (Auto) 1.3 0.0-7.0 % Basophils (%) (Auto) 0.3 0.0-2.0 % Neutrophils # (Auto) 9.1 H 1.6-8.6 10 ^3/uL Lymphocytes # (Auto) 0.9 0.4-5.4 10 ^3/uL Monocytes # (Auto) 0.6 0-1.3 10 ^3/uL Eosinophils # (Auto) 0.1 0-0.8 10 ^3/uL Basophils # (Auto) 0 0-0.2 10 ^3/uL Nucleated Red Blood Cells 0.1 % Sodium Level 140 136-145 mmol/L Potassium Level 4.1 3.5-5.1 mmol/L Chloride Level 104 98-107 mmol/L Carbon Dioxide Level 28 20-31 mmol/L Anion Gap 8 5-15 Blood Urea Nitrogen 16 9-23 mg/dL Creatinine 0.87 0.550-1.02 mg/dL Glomerular Filtration Rate Calc 71 >90 mL/min BUN/Creatinine Ratio 18.4 10.0-20.0 Serum Glucose 180 H 74-106 mg/dL Calcium Level 10.5 H 8.7-10.4 mg/dL Total Bilirubin 0.9 0.2-1.0 mg/dL Aspartate Amino Transferase (AST) 14 13-40 U/L Alanine Aminotransferase (ALT) 13 7-40 U/L Alkaline Phosphatase 97 46-116 U/L Total Protein 7.7 5.7-8.2 g/dL Albumin 5.1 H 3.2-4.8 g/dL Lipase 39 12-53 U/L Time of 1ST Reevaluation: 19:34 Reevaluation 1ST: Unchanged Patient Education/Counseling: Diagnosis, Treatment, Prognosis Family Education/Counseling: No Family Present Departure 1 Departure Time of Disposition: 21:34 Impression: Primary Impression: Lower abdominal pain Additional Impression: Diarrhea Disposition: 01 HOME / SELF CARE / HOMELESS Condition: Stable Discharged With: Self Critical Care Note Critical Care Time?: No Stability Stability form required: No I personally scribed for BUD WALKER MD ([email or web address]) on 05/19/24 at 19:35. Electronically submitted by Rebecca Samaniego ([facility]). BUD WALKER MD May 19, 2024 19:35
--- NOTE | 2024-05-19 20:54 | DVH ---
Exam: CT CT AB PEL WO CON-NO ORAL OR IV History: abd pain Comparison Study: None available at time of dictation. TECHNIQUE: Multidetector CT of the abdomen was performed from lung bases to pubic symphysis. Imaging was performed without IV contrast. Axial, coronal and sagittal multiplanar reformats were obtained fr om the axial data set by the technologist. Radiation Dose Information: CT Dose: CTDI volume is 13.6 mGy. Dose-length product is 738.01 mGy*cm FINDINGS: Evaluation of solid organs is limited due to lack of intravenous contrast use. Findings: Lung Bases: No acute or significant lung base finding. Normal heart size. Scattered coronary artery calcifications. Mitral annulus calcification. No pleural or pericardial effusion. Liver: The liver is normal in size. No focal lesions. Gallbladder and Biliary Tree: Gallbladder has been surgically removed. Spleen: Unremarkable Pancreas: The pancreas is grossly normal in appearance. Adrenal Glands: Unremarkable Kidneys: Kidneys are grossly normal without calculi or hydronephrosis. Bladder: Grossly unremarkable for degree of distention. Bowel: The stomach is grossly normal in appearance. Small bowel and colon are normal in caliber and d istribution. The appendix is not visualized; however, no secondary findings of acute appendicitis id entified. Ascites: Absent Lymphadenopathy: No mesenteric, retroperitoneal or periportal lymphadenopathy. Abdominal Wall and Mesentery: Unremarkable. Vasculature: The visualized abdominal aorta is normal in size and caliber. Evaluation of abdominal a nd pelvic vessels is limited due to lack of intravenous contrast. Pelvic Organs: Unremarkable Musculoskeletal: No aggressive focal bony lesions, acute fractures or dislocation. Soft tissues: Unremarkable IMPRESSION: 1. No findings of bowel obstruction. 2. Gallbladder is been surgically removed. 3. Pancreas appears normal 4. No nephrolithiasis or hydronephrosis Radiation optimization: All CT scans at this facility use at least one of these dose optimization corina hniques: automated exposure control mA and/or kV adjustment per patient size (includes targeted exam s where dose is matched to clinical indication) or iterative reconstruction. HS:Y
[2024-05-19] MEDS ORDERED: CALC625T35 PO (21:36)
[2024-05-20 01:29] LABS: Urine Bacteria None Seen /hpf (None Seen)
[2024-05-20 02:04] LABS: Urine Blood Negative /uL (Negative); Urine Clarity Clear (Clear); Urine Color Yellow (Yellow); Urine Hyaline Cast FEW /lpf (0 - 2); Urine Protein, UAD 2+ (Negative); Urine Specific Gravity 1.021 (1.001-1.035); Urine Squamous Epithelial Cell FEW /hpf (<5); Urine Urobilinogen 2 mg/dL (Negative); Urine WBC 1 /HPF (0-5); Urine pH 5.5 (5.0-9.0)
[2024-05-20] MEDS: cloNIDine HCL 0.1 MG TAB PO ONE (05:22)
[2024-05-20 05:34] VITALS: PULSE 100; RESP 20; O2SAT 97
[2024-05-20] MEDS ORDERED: HYDROcodone-ACET 5/325MG TAB PO PRN (07:30)
[2024-05-20] MEDS ORDERED: NITROGLYCERIN 0.4 MG SL TAB SL PRN (07:30)
[2024-05-20] MEDS ORDERED: ONDANSETRON HCL 4 MG/2 ML VIAL IV PRN (07:30)
[2024-05-20] MEDS ORDERED: MORPHINE SULFATE INJ 2 MG/ml SYRG IV PRN (07:30)
[2024-05-20] MEDS ORDERED: DEXTROSE (50%) 50ML SYRG IV PRN (07:30)
[2024-05-20] MEDS ORDERED: ACETAMINOPHEN 325 MG TAB PO PRN (07:30)
[2024-05-20] MEDS ORDERED: cloNIDine HCL 0.1 MG TAB PO PRN (07:45)
--- NOTE | 2024-05-20 07:48 | DVHHP2 ---
History of Present Illness Reason for Visit: Abdominal pain History of Present Illness Xochitl Lane is a 73-year-old female with past medical history of hypertension, hypothyroidism, bipolar, schizoaffective, and diabetes, who came to the hospital for abdominal pain. Patient came in complaining of chronic abdominal pain. When scans were clear she was up to be discharged. Patient is a resident at [facility] and refused to go back there. Patient was also found to have severe, uncontrolled hypertension, patient will be admitted. Patient was refusing everything from nursing staff, stating she only wanted the doctor to take care of her. I spoke with the patient regarding the nursing staff, and providers. Explained the different rolls, and that the nurses are with her for 12 hours and will be providing the majority of her care. She was agreeable, apologized, and took her blood pressure medication for the nurse. Cardiovascular: HTN Psych: Bipolar, Schizophrenia Endocrine: Diabetes, Hypothyroidism Past Surgical History: Appendectomy, Cholecystectomy Smoke: No ALCOHOL: none Drugs: None Lives: [facility] Domestic Violence: Neg Review of Systems Constitutional: Yes: Other (Headache); No: Fever, Chills, Sweats, Weakness, Malaise Eyes: No: Pain, Vision change, Conjunctivae inflammation, Eyelid inflammation, Other, Redness ENT: No: Ear pain, Ear discharge, Nose pain, Nose discharge, Nose congestion, Mouth pain, Mouth swelling, Throat pain, Throat swelling, Other Respiratory: No: Cough, Dry, Shortness of breath, SOB with excertion, Wheezing, Hemoptysis, Pleuritic Pain, Sputum, Wheezing, Other Cardiovascular: No: Chest Pain, Palpitations, Orthopnea, Paroxysmal Noc. Dyspnea, Edema, Lt Headedness, Other Gastrointestinal: Abdominal Pain; No: Nausea, Vomiting, Diarrhea, Constipation, Melena, Hematochezia, Other Genitourinary: No Dysuria, No Frequency, No Incontinence, No Hematuria, No Retention, No Other Musculoskeletal: No: other, neck pain, shoulder pain, arm pain, back pain, hand pain, leg pain, foot pain Skin: No: Rash, Lesions, Jaundice, Bruising, Other Neurological: No: Weakness, Numbness, Incoordination, Change in speech, Confusion, Seizures, Other Allergies: Coded Allergies: Codeine (Verified Allergy, Unknown, 04/03/24) NSAIDs (Verified Allergy, Unknown, 04/03/24) Penicillins (Verified Allergy, Unknown, 04/03/24) Exam Vital Signs Vital Signs Date Time Temp Pulse Resp B/P (MAP) Pulse Ox O2 Delivery O2 Flow Rate FiO2 05/20/24 05:34 100 20 97 Room Air* 0 21 05/20/24 05:32 178/105 (129) 05/20/24 00:46 99.0 99.0 General Appearance: Alert, Oriented X3, mild distress HEENT: Atraumatic, PERRLA Respiratory: Clear to auscultation, Normal air movement Cardiovascular: Normal S1, Normal S2, Other (Tachycardic) Abdominal: Normal bowel sounds, Soft, No tenderness Extremities: No clubbing, No cyanosis, No edema, Normal pulses Skin: No rashes, No breakdown, No significant lesion Neuro: Normal gait, Normal speech, Strength at 5/5 X4 ext, Normal tone Psych/Mental Status: Mental status NL, Mood NL Labs/Xrays Labs Test 05/20/24 01:12 05/19/24 17:48 Range/Units Urine Color Yellow Yellow Urine Clarity Clear Clear Urine pH 5.5 5.0-9.0 Urine Specific Gamaliel 1.021 1.001-1.035 Urine Protein 2+ H Negative Urine Ketones Trace Negative Urine Blood Negative Negative /uL Urine Nitrite Negative Negative Urine Bilirubin Negative Negative Urine Urobilinogen 2 H Negative mg/dL Urine Leukocyte Esterase Negative Negative /uL Urine RBC <1 0 - 4 /hpf Urine Microscopic WBC 1 0-5 /HPF Urine Squamous Epithelial Cells Few <5 /hpf Urine Bacteria None seen None Seen /hpf Urine Hyaline Casts Few 0 - 2 /lpf Urine Glucose Normal Normal mg/dL White Blood Count 10.7 4.4-10.8 10^3/uL Red Blood Count 5.87 H 4.0-5.20 10^6/uL Hemoglobin 16.4 H 12.2-16.2 g/dL Hematocrit 48.3 H 36.0-46.0 % Mean Corpuscular Volume 82.3 80.0-100.0 fL Mean Corpuscular Hemoglobin 27.9 L 28.0-32.0 pg Mean Corpuscular Hemoglobin Concent 33.9 32.0-36.0 g/dL Red Cell Distribution Width 15.7 H 11.8-14.3 % Platelet Count 184 140-450 10^3/uL Mean Platelet Volume 7.1 6.9-10.8 fL Neutrophils (%) (Auto) 84.3 H 37.0-80.0 % Lymphocytes (%) (Auto) 8.7 L 10.0-50.0 % Monocytes (%) (Auto) 5.4 0.0-12.0 % Eosinophils (%) (Auto) 1.3 0.0-7.0 % Basophils (%) (Auto) 0.3 0.0-2.0 % Neutrophils # (Auto) 9.1 H 1.6-8.6 10 ^3/uL Lymphocytes # (Auto) 0.9 0.4-5.4 10 ^3/uL Monocytes # (Auto) 0.6 0-1.3 10 ^3/uL Eosinophils # (Auto) 0.1 0-0.8 10 ^3/uL Basophils # (Auto) 0 0-0.2 10 ^3/uL Nucleated Red Blood Cells 0.1 % Sodium Level 140 136-145 mmol/L Potassium Level 4.1 3.5-5.1 mmol/L Chloride Level 104 98-107 mmol/L Carbon Dioxide Level 28 20-31 mmol/L Anion Gap 8 5-15 Blood Urea Nitrogen 16 9-23 mg/dL Creatinine 0.87 0.550-1.02 mg/dL Glomerular Filtration Rate Calc 71 >90 mL/min BUN/Creatinine Ratio 18.4 10.0-20.0 Serum Glucose 180 H 74-106 mg/dL Calcium Level 10.5 H 8.7-10.4 mg/dL Total Bilirubin 0.9 0.2-1.0 mg/dL Aspartate Amino Transferase (AST) 14 13-40 U/L Alanine Aminotransferase (ALT) 13 7-40 U/L Alkaline Phosphatase 97 46-116 U/L Total Protein 7.7 5.7-8.2 g/dL Albumin 5.1 H 3.2-4.8 g/dL Lipase 39 12-53 U/L Exam: CT CT AB PEL WO CON-NO ORAL OR IV FINDINGS: Evaluation of solid organs is limited due to lack of intravenous contrast use. Findings: Lung Bases: No acute or significant lung base finding. Normal heart size. Scattered coronary artery calcifications. Mitral annulus calcification. No pleural or pericardial effusion. Liver: The liver is normal in size. No focal lesions. Gallbladder and Biliary Tree: Gallbladder has been surgically removed. Spleen: Unremarkable Pancreas: The pancreas is grossly normal in appearance. Adrenal Glands: Unremarkable Kidneys: Kidneys are grossly normal without calculi or hydronephrosis. Bladder: Grossly unremarkable for degree of distention. Bowel: The stomach is grossly normal in appearance. Small bowel and colon are normal in caliber and distribution. The appendix is not visualized; however, no secondary findings of acute appendicitis identified. Ascites: Absent Lymphadenopathy: No mesenteric, retroperitoneal or periportal lymphadenopathy. Abdominal Wall and Mesentery: Unremarkable. Vasculature: The visualized abdominal aorta is normal in size and caliber. Evaluation of abdominal and pelvic vessels is limited due to lack of intravenous contrast. Pelvic Organs: Unremarkable Musculoskeletal: No aggressive focal bony lesions, acute fractures or dislocation. Soft tissues: Unremarkable IMPRESSION: 1. No findings of bowel obstruction. 2. Gallbladder is been surgically removed. 3. Pancreas appears normal 4. No nephrolithiasis or hydronephrosis Assessment/Plan Assessment/Plan Assessment: Hypertensive emergency, Uncontrolled diabetes, Bipolar, Schizoaffective, Plan: Admit to Tele, Social service consult, PRN antihypertensives, A1c, Accu checks Q AC&HS with sliding scale, Home medications reconciled, Plan discussed with: Patient My Orders Orders - LUCINDA BARRETO Procedure Category Date Status Time Admit ADMIT 05/20/24 Transmitted 07:20 Code Status CODE 05/20/24 Transmitted 07:20 2 Gm Sodium Diet DIET 05/20/24 Transmitted Breakfast Sodium Chloride Lock PHA 05/20/24 Transmitted (Saline Lock Ns) 14:00 Hydrocodone-Acet PHA 05/20/24 Transmitted 5/325mg Tab ([place] 07:30 Ondansetron Hcl PHA 05/20/24 Transmitted (Zofran) 07:30 Docusate Sodium PHA 05/20/24 Transmitted Capsule (Colace 07:30 Complete Blood Count LAB 05/21/24 Verified 04:00 Comprehensive LAB 05/21/24 Verified Metabolic Panel 04:00 Condition: Serious MEET 05/20/24 Transmitted 07:20 Acetaminophen Tablet PHA 05/20/24 Transmitted (Tylenol Tablet) 07:30 Nitroglycerin PHA 05/20/24 Transmitted Sublingual (Ntrostat 07:30 Morphine Sulfate PHA 05/20/24 Transmitted Injection 07:30 Stat Ekg For Chest MEET 05/20/24 Transmitted Pain 07:20 Notify Md Of Changes MEET 05/20/24 Transmitted From Base 07:20 Paramedic Instructor For MEET 05/20/24 Transmitted 24 Hours 07:20 Emergency Dysrhythmia MEET 05/20/24 Transmitted Protocol 07:20 Rhythm Strips Once MEET 05/20/24 Transmitted Every Shift 07:20 Oxygen By Nasal RT 05/20/24 Transmitted Cannula 07:20 Glucose Blood PHA 05/20/24 Transmitted (Accu-Chek Comfort 11:30 Bedtime Insulin Scale PHA 05/20/24 Transmitted 22:00 Moderate Insulin Ss PHA 05/20/24 Transmitted 11:30 Dextrose 50% Syringe PHA 05/20/24 Transmitted 07:30 Apixaban (Eliquis) PHA 05/20/24 Transmitted 10:[address] Tablet PHA 05/20/24 Transmitted (Depakote "Dr" Tabl 10:00 Levothyroxine Tablet PHA 05/20/24 Transmitted (Synthroid Tablet) 10:00 Lorazepam Tablet PHA 05/20/24 Transmitted (Ativan Tablet) 22:00 Pantoprazole Tablet PHA 05/20/24 Transmitted (Protonix Tablet) 10:00 Quetiapine Fumarate PHA 05/20/24 Transmitted Tablet (Seroquel Tab 12:00 (Nf) Melatonin PHA 05/20/24 Transmitted 22:00 (Nf) Metoprolol PHA 05/20/24 Transmitted Succinate (Metoprolol 10:00 Date of Service: May 20, 2024 Billing Provider: LUCINDA BARRETO Common Visit Codes: [id number] INP/OBS CARE (MOD) LUCINDA BARRETO May 20, 2024 07:48
[2024-05-20 08:08] VITALS: PULSE 101; RESP 18; O2SAT 96
[2024-05-20] MEDS ORDERED: PATIENTS OWN MEDICATION (Metoprolol Succinate (Metoprolol Succinate Er) 1 TAB) PO SCH (10:00)
[2024-05-20] MEDS: PANTOPRAZOLE 40 MG TAB PO SCH (10:48)
[2024-05-20] MEDS: APIXABAN 5 MG TAB PO SCH (10:48)
[2024-05-20] MEDS: LEVOTHYROXINE SODIUM 50 MCG TAB PO SCH (10:48)
[2024-05-20] MEDS: METOPROLOL SUCCINATE XL 50 MG TAB PO SCH (10:52)
[2024-05-20] MEDS: ACCU-CHEK COMFORT CURVE STRIP VI SCH (11:30)
[2024-05-20] MEDS: QUEtiapine FUMARATE 100 MG TAB PO SCH (12:00)
[2024-05-20] MEDS: InsuLIN REG 1unit/0.01ml Soln (100units/ml) SC SCH ×2 (12:18→22:00)
--- NOTE | 2024-05-20 14:02 | DVHPN2 ---
Progress Note Date Seen: May 20, 2024 Medical Necessity Reason Pt with a Central, PICC or Fol: No Subjective Patient reports: No new complaints Review of Systems: HEENT:Normal, CVS:Normal, RESPIRATORY:Normal, GI:Normal, :Normal, MSK:Normal, NEURO:Normal Objective vital signs Vital Sign Date Time Temp Pulse Resp B/P (MAP) Pulse Ox O2 Delivery O2 Flow Rate FiO2 05/20/24 10:52 94 148/101 05/20/24 08:08 18 96 Room Air* 0 21 05/20/24 07:30 97.1 97.1 medications Current Medications Medications Dose Ordered Sig/Mee Route Start Time Stop Time Status Last Admin Dose Admin Sodium Chloride 10 ml Q8HR IV 05/20/24 14:00 Acetaminophen/ Hydrocodone Bitart 1 tab Q4HP PRN PO 05/20/24 07:30 Ondansetron HCl 4 mg Q4HP PRN IV 05/20/24 07:30 Docusate Sodium 100 mg BIDPRN PRN PO 05/20/24 07:30 Acetaminophen 650 mg Q6HP PRN PO 05/20/24 07:30 Nitroglycerin 0.4 mg Q5MINP PRN SL 05/20/24 07:30 Morphine Sulfate 2 mg Q30M PRN IV 05/20/24 07:30 Diagnostic Test (Pha) 1 strip ACHS 05/20/24 11:30 05/20/24 11:30 1 STRIP Insulin Human Regular HS SC 05/20/24 22:00 Insulin Human Regular AC SC 05/20/24 11:30 05/20/24 12:18 6 UNITS Dextrose 50 ml UD PRN IV 05/20/24 07:30 Apixaban 5 mg BID PO 05/20/24 10:00 05/20/24 10:48 5 MG Divalproex Sodium 125 mg BID PO 05/20/24 10:00 05/20/24 10:49 125 MG Levothyroxine Sodium 50 mcg DAILY PO 05/20/24 10:00 05/20/24 10:48 50 MCG Lorazepam 0.5 mg HS PO 05/20/24 22:00 Pantoprazole Sodium 40 mg DAILY PO 05/20/24 10:00 05/20/24 10:48 40 MG Quetiapine Fumarate 100 mg QID PO 05/20/24 12:00 Patient Own Medication 3 mg HS PO 05/20/24 22:00 Patient Own Medication 1 tab DAILY PO 05/20/24 10:00 UNV Clonidine HCl 0.1 mg Q6HP PRN PO 05/20/24 07:45 Metoprolol Succinate 25 mg DAILY PO 05/20/24 10:00 05/20/24 10:52 25 MG Examination: GENERAL:Normal, HEENT:Normal, NECK:Normal, LUNGS:Normal, CVS:Normal, ABDOMEN:Normal, MSK:Normal, SKIN:Normal, NEURO:Normal, :Normal laboratory and microbiology Laboratory Tests 05/19/24 17:48 Test 05/19/24 17:48 Range/Units Serum Glucose 180 H 74-106 mg/dL Problem List/Assessment/Plan Problem List/Assessment/Plan #1 abd pain: improved #2 htn ?urgency: adjust meds #3 dm: ssi #4 hypothyroidism #5 bipolar disorder #6 a fib with secondary hypercoagulable state: on eliquis, lopressor advance care planning- full code- time spent 19 mins Plan discussed with: Patient My Orders My Orders Orders - BILLY CENTENO MD Procedure Category Date Status Time Metoprolol Xl PHA 05/21/24 Transmitted Succinate (Toprol Xl) 10:00 Metoprolol Xl PHA 05/20/24 Transmitted Succinate (Toprol Xl) 14:00 Amlodipine Tablet PHA 05/20/24 Transmitted (Norvasc Tablet) 14:00 Amlodipine Tablet PHA 05/21/24 Transmitted (Norvasc Tablet) 10:00 Vitamin B12 LAB 05/20/24 Transmitted 13:55 Date of Service: May 20, 2024 Billing Provider: BILLY CENTENO MD Common Visit Codes: [id number] INP/OBS CARE(HIGH) Secondary Visit Codes: [id number] CARE PLAN 30 MINUTES BILLY CENTENO MD May 20, 2024 14:02
[2024-05-20] MEDS: SODIUM CHLOR 0.9% PF (SALINE LOCK) 10ML VIAL/SYR IV SCH (14:41)
[2024-05-20] MEDS: METOPROLOL SUCCINATE XL 50 MG TAB PO ONE (15:13)
[2024-05-20] MEDS: amLODIPine BESYLATE 5 MG TAB PO ONE (15:13)
[2024-05-20 19:30] VITALS: RESP 18
[2024-05-20] MEDS ORDERED: MELATONIN 3 MG PO SCH (22:00)
[2024-05-20] MEDS: LORazepam 0.5 MG TAB PO SCH (22:20)
[2024-05-21 08:00] VITALS: PULSE 69; RESP 19; O2SAT 94
[2024-05-21] MEDS: amLODIPine BESYLATE 5 MG TAB PO SCH (11:00)
[2024-05-21] MEDS: METOPROLOL SUCCINATE XL 50 MG TAB PO SCH (11:03)
--- NOTE | 2024-05-21 13:48 | DVHPN2 ---
Progress Note Date Seen: May 21, 2024 Medical Necessity Reason Pt with a Central, PICC or Fol: No Subjective Patient reports: No new complaints Review of Systems: HEENT:Normal, CVS:Normal, RESPIRATORY:Normal, GI:Normal, :Normal, MSK:Normal, NEURO:Normal Objective vital signs Vital Sign Date Time Temp Pulse Resp B/P (MAP) Pulse Ox O2 Delivery O2 Flow Rate FiO2 05/21/24 11:03 76 148/83 05/21/24 08:00 19 94 Room Air* 0 21 05/21/24 08:00 98.2 98.2 medications Current Medications Medications Dose Ordered Sig/Mee Route Start Time Stop Time Status Last Admin Dose Admin Sodium Chloride 10 ml Q8HR IV 05/20/24 14:00 05/20/24 22:07 10 ML Acetaminophen/ Hydrocodone Bitart 1 tab Q4HP PRN PO 05/20/24 07:30 Ondansetron HCl 4 mg Q4HP PRN IV 05/20/24 07:30 Docusate Sodium 100 mg BIDPRN PRN PO 05/20/24 07:30 Acetaminophen 650 mg Q6HP PRN PO 05/20/24 07:30 Nitroglycerin 0.4 mg Q5MINP PRN SL 05/20/24 07:30 Morphine Sulfate 2 mg Q30M PRN IV 05/20/24 07:30 Diagnostic Test (Pha) 1 strip ACHS 05/20/24 11:30 05/21/24 06:32 1 STRIP Insulin Human Regular HS SC 05/20/24 22:00 Insulin Human Regular AC SC 05/20/24 11:30 05/20/24 17:43 2 UNITS Dextrose 50 ml UD PRN IV 05/20/24 07:30 Apixaban 5 mg BID PO 05/20/24 10:00 05/21/24 10:59 5 MG Divalproex Sodium 125 mg BID PO 05/20/24 10:00 05/21/24 11:01 125 MG Levothyroxine Sodium 50 mcg DAILY PO 05/20/24 10:00 05/21/24 11:00 50 MCG Lorazepam 0.5 mg HS PO 05/20/24 22:00 05/20/24 22:20 0.5 MG Pantoprazole Sodium 40 mg DAILY PO 05/20/24 10:00 05/21/24 10:59 40 MG Quetiapine Fumarate 100 mg QID PO 05/20/24 12:00 05/21/24 10:59 100 MG Patient Own Medication 1 tab DAILY PO 05/20/24 10:00 UNV Clonidine HCl 0.1 mg Q6HP PRN PO 05/20/24 07:45 Metoprolol Succinate 50 mg DAILY PO 05/21/24 10:00 05/21/24 11:03 50 MG Amlodipine Besylate 5 mg DAILY PO 05/21/24 10:00 05/21/24 11:00 5 MG Examination: GENERAL:Normal, HEENT:Normal, NECK:Normal, LUNGS:Normal, CVS:Normal, ABDOMEN:Normal, MSK:Normal, SKIN:Normal, NEURO:Normal, :Normal laboratory and microbiology Laboratory Tests 05/19/24 17:48 Test 05/19/24 17:48 Range/Units Serum Glucose 180 H 74-106 mg/dL Problem List/Assessment/Plan Problem List/Assessment/Plan #1 abd pain: improved #2 htn ?urgency: adjust meds #3 dm: ssi #4 hypothyroidism #5 bipolar disorder/ confused #6 a fib with secondary hypercoagulable state: on eliquis, lopressor advance care planning- full code- time spent 19 mins Plan discussed with: Patient My Orders My Orders Orders - BILLY CENTENO MD Procedure Category Date Status Time Metoprolol Xl PHA 05/21/24 In Process Succinate (Toprol Xl) 10:00 Amlodipine Tablet PHA 05/21/24 In Process (Norvasc Tablet) 10:00 Mrsa Screen DRAKE 05/20/24 In Process 11:39 * Geriatric Psychiatrist CONS 05/21/24 Transmitted Consult Date of Service: May 21, 2024 Billing Provider: BILLY CENTENO MD Common Visit Codes: [id number] INP/OBS CARE(HIGH) BILLY CENTENO MD May 21, 2024 13:48
[2024-05-21 19:26] VITALS: PULSE 73; RESP 16; O2SAT 97
[2024-05-22 00:29] VITALS: BP 154/88; PULSE 89; RESP 18; TEMP 97.9; O2SAT 100
[2024-05-22 07:06] VITALS: BP 127/76; PULSE 84; RESP 16; TEMP 97.9; O2SAT 98
[2024-05-22 08:00] VITALS: PULSE 90; RESP 18; O2SAT 98
[2024-05-22 09:00] VITALS: BP 138/80; PULSE 90; RESP 18; TEMP 97.9; O2SAT 98
[2024-05-22] MEDS: MUPIROCIN 2% OINT 15gm or 22gm FOR MRSA NARES EACHNOSTRI SCH (10:15)
--- NOTE | 2024-05-22 15:30 | DVHPN2 ---
Subjective She is agitated and paranoid He is refusing take her medications She says she does not want to go back to [facility] Changes from previous H/P or p: Changes Eyes: No Pain, No Vision change, No Conjunctivae inflammation, No Eyelid inflammation, No Other, No Redness ENT: No Ear pain, No Ear discharge, No Nose pain, No Nose discharge, No Nose congestion, No Mouth pain, No Mouth swelling, No Throat pain, No Throat swelling, No Other Cardiovascular: No Chest Pain, No Palpitations, No Orthopnea, No Paroxysmal Noc. Dyspnea, No Edema, No Lt Headedness, No Other Respiratory: No Cough, No Dry, No Shortness of breath, No SOB with excertion, No Wheezing, No Hemoptysis, No Pleuritic Pain, No Sputum, No Other Gastrointestinal: No Nausea, No Vomiting; Abdominal Pain; No Diarrhea, No Constipation, No Melena, No Hematochezia, No Other Genitourinary: No Dysuria, No Frequency, No Incontinence, No Hematuria, No Retention, No Other Musculoskeletal: No other, No neck pain, No shoulder pain, No arm pain, No back pain, No hand pain, No leg pain, No foot pain Skin: No Rash, No Lesions, No Jaundice, No Bruising, No Other Objective Vitals Vital Signs Date Time Temp Pulse Resp B/P (MAP) Pulse Ox O2 Delivery O2 Flow Rate FiO2 05/22/24 10:00 138/80 05/22/24 10:00 90 05/22/24 09:00 97.9 18 98 97.9 05/22/24 08:00 Room Air* 0 21 General Appearance: Alert, Oriented X3, Cooperative, No acute distress Lungs: Clear to auscultation, Normal air movement Cardiovascular: Regular rate, Normal S1, Normal S2 Abdomen: Normal bowel sounds, Soft Extremities: No edema Medications Current Medications Medications Dose Ordered Sig/Mee Route Start Time Stop Time Status Last Admin Dose Admin Sodium Chloride 10 ml Q8HR IV 05/20/24 14:00 05/21/24 22:15 10 ML Acetaminophen/ Hydrocodone Bitart 1 tab Q4HP PRN PO 05/20/24 07:30 Ondansetron HCl 4 mg Q4HP PRN IV 05/20/24 07:30 Docusate Sodium 100 mg BIDPRN PRN PO 05/20/24 07:30 Acetaminophen 650 mg Q6HP PRN PO 05/20/24 07:30 Nitroglycerin 0.4 mg Q5MINP PRN SL 05/20/24 07:30 Morphine Sulfate 2 mg Q30M PRN IV 05/20/24 07:30 Diagnostic Test (Pha) 1 strip ACHS 05/20/24 11:30 05/22/24 11:30 1 STRIP Insulin Human Regular HS SC 05/20/24 22:00 Insulin Human Regular AC SC 05/20/24 11:30 05/22/24 14:12 6 UNITS Dextrose 50 ml UD PRN IV 05/20/24 07:30 Apixaban 5 mg BID PO 05/20/24 10:00 05/21/24 22:15 5 MG Divalproex Sodium 125 mg BID PO 05/20/24 10:00 05/21/24 22:15 125 MG Levothyroxine Sodium 50 mcg DAILY PO 05/20/24 10:00 05/21/24 11:00 50 MCG Lorazepam 0.5 mg HS PO 05/20/24 22:00 05/21/24 22:15 0.5 MG Pantoprazole Sodium 40 mg DAILY PO 05/20/24 10:00 05/21/24 10:59 40 MG Quetiapine Fumarate 100 mg QID PO 05/20/24 12:00 05/21/24 22:15 100 MG Patient Own Medication 1 tab DAILY PO 05/20/24 10:00 UNV Clonidine HCl 0.1 mg Q6HP PRN PO 05/20/24 07:45 Metoprolol Succinate 50 mg DAILY PO 05/21/24 10:00 05/21/24 11:03 50 MG Amlodipine Besylate 5 mg DAILY PO 05/21/24 10:00 05/21/24 11:00 5 MG Mupirocin 1 applic BID EACHNOSTRI 05/22/24 10:15 05/27/24 10:14 Laboratory Results Laboratory Tests 05/19/24 17:48 Urinalysis Test 05/20/24 01:12 Urine Color Yellow (Yellow) Urine Clarity Clear (Clear) Urine pH 5.5 (5.0-9.0) Urine Specific [place] 1.021 (1.001-1.035) Urine Protein 2+ (Negative) H Urine Ketones Trace (Negative) Urine Blood Negative /uL (Negative) Urine Nitrite Negative (Negative) Urine Bilirubin Negative (Negative) Urine Urobilinogen 2 mg/dL (Negative) H Urine Leukocyte Esterase Negative /uL (Negative) Urine RBC <1 /hpf (0 - 4) Urine Microscopic WBC 1 /HPF (0-5) Urine Squamous Epithelial Cells Few /hpf (<5) Urine Bacteria None seen /hpf (None Seen) Urine Hyaline Casts Few /lpf (0 - 2) Urine Glucose Normal mg/dL (Normal) Microbiology Microbiology Date/Time Source Procedure Growth Status 05/20/24 11:39 Nose MRSA Screen - Final Methicillin Resistant S.aureus Complete Assessment/Plan Assessment/Plan Abdominal pain: Resolved Hypertensive urgency: Better Type 2 diabetes: Stable Hypothyroidism Bipolar disorder Anxiety Confusion History of atrial fibrillation on Eliquis and Lopressor Plan Ativan p.r.n. Continue Seroquel The patient refuses to go back to [facility] facility where she is staying We will try to get her to a half-way facility for rehab Amlodipine Metoprolol Discharge planning for tomorrow Plan discussed with: Patient My Orders Orders - EFRAIN CASTRO MD Procedure Category Date Status Time Mupirocin 2% Oint PHA 05/22/24 In Process Mrsa Nares (Bactroban 10:15 * [employer] CONS 05/22/24 Transmitted Consult Date of Service: May 22, 2024 Billing Provider: EFRAIN CASTRO MD Common Visit Codes: [id number] INP/OBS CARE(HIGH) EFRAIN CASTRO MD May 22, 2024 15:30
[2024-05-22] MEDS: LORazepam 0.5 MG TAB PO PRN (17:23)
[2024-05-22 17:30] VITALS: BP 151/94; PULSE 83; RESP 20; TEMP 97.9; O2SAT 98
[2024-05-22 21:00] VITALS: BP 159/89; PULSE 89; RESP 19; TEMP 97.7; O2SAT 95
[2024-05-22] MEDS: DOCUSATE SOD 100 MG CAP PO PRN (23:38)
[2024-05-23 01:00] VITALS: BP 147/89; PULSE 81; RESP 17; TEMP 97.9; O2SAT 98
[2024-05-23 05:00] VITALS: BP 144/88; PULSE 82; RESP 17; TEMP 97.7; O2SAT 95
[2024-05-23 09:04] VITALS: BP 145/88; PULSE 96; RESP 18; TEMP 97.8; O2SAT 93
--- NOTE | 2024-05-23 09:59 | DVHDS2 ---
Discharge Summary Date of Admission May 20, 2024 at 07:20 Date of Discharge: May 23, 2024 Labs/Diagnostic Data: Laboratory Results Test 05/23/24 05:32 05/20/24 14:40 05/20/24 01:12 05/19/24 17:48 POC Glucose 142 mg/dl (70-106) Vitamin B12 Level 319 pg/mL (211-911) Urine Color Yellow (Yellow) Urine Clarity Clear (Clear) Urine pH 5.5 (5.0-9.0) Urine Specific [place] 1.021 (1.001-1.035) Urine Protein 2+ (Negative) Urine Ketones Trace (Negative) Urine Blood Negative /uL (Negative) Urine Nitrite Negative (Negative) Urine Bilirubin Negative (Negative) Urine Urobilinogen 2 mg/dL (Negative) Urine Leukocyte Esterase Negative /uL (Negative) Urine RBC <1 /hpf (0 - 4) Urine Microscopic WBC 1 /HPF (0-5) Urine Squamous Epithelial Cells Few /hpf (<5) Urine Bacteria None seen /hpf (None Seen) Urine Hyaline Casts Few /lpf (0 - 2) Urine Glucose Normal mg/dL (Normal) White Blood Count 10.7 10^3/uL (4.4-10.8) Red Blood Count 5.87 10^6/uL (4.0-5.20) Hemoglobin 16.4 g/dL (12.2-16.2) Hematocrit 48.3 % (36.0-46.0) Mean Corpuscular Volume 82.3 fL (80.0-100.0) Mean Corpuscular Hemoglobin 27.9 pg (28.0-32.0) Mean Corpuscular Hemoglobin Concent 33.9 g/dL (32.0-36.0) Red Cell Distribution Width 15.7 % (11.8-14.3) Platelet Count 184 10^3/uL (140-450) Mean Platelet Volume 7.1 fL (6.9-10.8) Neutrophils (%) (Auto) 84.3 % (37.0-80.0) Lymphocytes (%) (Auto) 8.7 % (10.0-50.0) Monocytes (%) (Auto) 5.4 % (0.0-12.0) Eosinophils (%) (Auto) 1.3 % (0.0-7.0) Basophils (%) (Auto) 0.3 % (0.0-2.0) Neutrophils # (Auto) 9.1 10 ^3/uL (1.6-8.6) Lymphocytes # (Auto) 0.9 10 ^3/uL (0.4-5.4) Monocytes # (Auto) 0.6 10 ^3/uL (0-1.3) Eosinophils # (Auto) 0.1 10 ^3/uL (0-0.8) Basophils # (Auto) 0 10 ^3/uL (0-0.2) Nucleated Red Blood Cells 0.1 % Sodium Level 140 mmol/L (136-145) Potassium Level 4.1 mmol/L (3.5-5.1) Chloride Level 104 mmol/L (98-107) Carbon Dioxide Level 28 mmol/L (20-31) Anion Gap 8 (5-15) Blood Urea Nitrogen 16 mg/dL (9-23) Creatinine 0.87 mg/dL (0.550-1.02) Glomerular Filtration Rate Calc 71 mL/min (>90) BUN/Creatinine Ratio 18.4 (10.0-20.0) Serum Glucose 180 mg/dL (74-106) Calcium Level 10.5 mg/dL (8.7-10.4) Total Bilirubin 0.9 mg/dL (0.2-1.0) Aspartate Amino Transferase (AST) 14 U/L (13-40) Alanine Aminotransferase (ALT) 13 U/L (7-40) Alkaline Phosphatase 97 U/L (46-116) Total Protein 7.7 g/dL (5.7-8.2) Albumin 5.1 g/dL (3.2-4.8) Lipase 39 U/L (12-53) Other Laboratory Tests 05/19/24 17:48 Brief Hx & Hospital Course: Final diagnoses: Abdominal pain: Resolved Hypertensive urgency: Better Type 2 diabetes: Stable Hypothyroidism Bipolar disorder Anxiety Confusion History of atrial fibrillation on Eliquis and Lopressor She was admitted for hypertensive emergency, the patient does not take her medications Here she also was not taking her medications and refused care She lived in [facility] nursing facility but she said she does not want to go back there She was given Ativan for anxiety She also has bipolar but she was refusing to take her Seroquel Because of weakness she will be discharged to a senior care facility for physical therapy Resume the home medications Condition at Discharge: Stable Final Diagnosis/Problems List Abdominal pain: Resolved Hypertensive urgency: Better Type 2 diabetes: Stable Hypothyroidism Bipolar disorder Anxiety Confusion History of atrial fibrillation on Eliquis and Lopressor Discharge Disposition: Care Home Facility SNF Discharge Will this Physician continue t: No Discharge Statement: "Patient was advised to return to the ER or call 911 if any headaches, dizziness, shortness of breath, chest pain, abdominal pain, bleeding, fevers, or worsening of medical condition. Patient was counseled about treatment plan, medications, possible side effects, patientverbalized understanding. All questions were answered to the best of my ability. This discharge took greater then 30 minutes in planning, reviewing documentation, counseling the patient, and discussing with other team members." ASSESSMENT ASSESSMENT Assessment Date of Service: May 23, 2024 Billing Provider: EFRAIN CASTRO MD Common Visit Codes: [id number] DISCH DAY >30min EFRAIN CASTRO MD May 23, 2024 09:59
[2024-05-23 10:01] VITALS: BP 145/88; PULSE 96; TEMP 36.6
[2024-05-23 13:00] VITALS: BP 143/75; PULSE 78; RESP 17; TEMP 97.7; O2SAT 94
== END 2024-05-23 15:37 | disposition home or self-care (01) | DRG 392 ==
LOC: EDBD 16:24 → ER 16:24 → OVERFLOW 05-20 07:20 → TELE-EAST 05-21 23:57
PROVIDERS: ADMIT Internal Medicine Geriatric Medicine; ATTEND Internal Medicine Geriatric Medicine
DX: K21.9 Gastro-esophageal reflux disease without esophagitis (principal); I16.1 Hypertensive emergency; I67.4 Hypertensive encephalopathy; E03.9 Hypothyroidism, unspecified; I48.91 Unspecified atrial fibrillation; F31.9 Bipolar disorder, unspecified; E11.65 Type 2 diabetes mellitus with hyperglycemia; I10 Essential (primary) hypertension; G89.29 Other chronic pain; F41.9 Anxiety disorder, unspecified; F25.9 Schizoaffective disorder, unspecified; Z88.5 Allergy status to narcotic agent; Z88.0 Allergy status to penicillin; Z79.01 Long term (current) use of anticoagulants; Z79.899 Other long term (current) drug therapy
CPT/HCPCS: 36415; 74176; 80053; 81001; 82607; 82962; 83690; 85025; 87081; G0378; J1815

== ENCOUNTER 2024-05-28 03:25 | Emergency (ER) | payer MEDICARE, MEDICAID ==
[~2024-05-28] VITALS: Ht 165.1 cm; Wt 86.2 kg
[~2024-05-28 03:25] MED LIST changes: +CALC625T35 PO
--- NOTE | 2024-05-28 04:03 | ED.PDOC ---
HPI Comments 73-year-old female with PMHx A-Fib brought in by EMS presents with a chief complaint of palpitations and SOB. Patient states that she is also experiencing 9/10 chest discomfort at this time. Patient is on Eliquis and metoprolol for atrial fibrillation.. Patient is poor historian. EMS reports that patient has not been in A-Fib with them the whole time en route to ER. Chief Complaint: Palpitations Time Seen by MD: 04:00 Reviewed Notes: Medications, Allergies Allergies: Coded Allergies: Codeine (Verified Allergy, Unknown, 04/03/24) NSAIDs (Verified Allergy, Unknown, 04/03/24) Penicillins (Verified Allergy, Unknown, 04/03/24) Home Meds Active Scripts Calcium Polycarbophil (Fiber) 625 Mg Tab, 625 MG PO BID for 60 Days, #120 TAB Prov:BUD WALKER MD 05/19/24 Reported Medications Metoprolol Succinate (Metoprolol Succinate Er) 25 Mg Tab, 1 TAB PO DAILY, #30 TAB 5 Refills 04/03/24 Melatonin (MELATONIN) 3 Mg Tab, 3 MG OR HS, TAB 04/03/24 Metformin Hydrochloride (Metformin Hcl) 1,000 Mg Tab, 1 TAB PO BID, #60 TAB 5 Refills 04/03/24 Lorazepam (ATIVAN TABLET) 0.5 Mg Tb, 1 TAB PO HS, #90 TAB 04/03/24 Quetiapine Fumerate (QUETIAPINE FUMARATE) 100 Mg Tab, 100 MG PO QID, TAB 04/03/24 Pantoprazole Sodium Sesquihydr (Protonix) 40 Mg Tab, 40 MG PO DAILY, #30 TAB 04/03/24 Apixaban Base (ELIQUIS) 5 Mg Tab, 5 MG PO BID, TAB 04/03/24 Levothyroxine Sodium (Levothyroxine Sodium) 50 Mcg Tab, 50 MCG PO DAILY, TAB 04/03/24 Divalproex Sodium (Depakote) 250 Mg Tab, 125 MG PO BID, #60 TAB 2 Refills 04/03/24 Information Source: Patient Mode of Arrival: EMS Vital Signs Vital Signs Date Time Temp Pulse Resp B/P (MAP) Pulse Ox O2 Delivery O2 Flow Rate FiO2 05/28/24 05:29 97.7 90 20 159/75 (103) 98 97.7 Physical Exam General: Awake, alert and oriented. No acute distress. Skin: Skin in warm, dry and intact. Appropriate color for ethnicity. HEENT: The head is normocephalic and atraumatic. Conjunctivae are clear without exudates or hemorrhage. Sclera is non-icteric. EOM are intact. No signs of nystagmus. Eyelids are normal in appearance without swelling or lesions. Oral mu cosa is pink and moist Neck: The neck is supple with normal range of motion. No JVD. Cardiac: Heart rate and rhythm are normal. No murmurs, gallops, or rubs are auscultated. Respiratory: No signs of respiratory distress. Lung sounds are clear in all l obes bilaterally without rales, ronchi, or wheezes. Abdominal: Abdomen is soft, non-tender without distention. Bowel sounds are present and normoactive in all four quadrants. Extremities: Upper and lower extremities are atraumatic in appearance without deformity or edema. Neurological: The patient is awake, alert and oriented to person, place, and time with normal speech. Speech is clear. There is no facial asymmetry. Psychiatric: The patient appears anxious with labile mood. Review of Systems: REVIEW OF SYSTEMS: No fever, no chills, or fatigue HEENT: No sore throat, no earache, no congestion, no neck pain. Cardiac: No chest pain. Positive palpitations. Lungs: Positive shortness of breath, no cough. GI: No nausea, no vomiting, no diarrhea, no constipation, no abdominal pain : No dysuria, frequency, or urgency. No hematuria. Musculoskeletal: No joint pain , no joint swelling, no extremity edema. Skin: No rash, no itching. 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 Was a procedure done?: No CP Differential Dx Differential Diagnosis: A-fib, Angina, Anxiety / Panic Attack, Electrolyte Disorder, Pulmonary Embolus, Other (Thyroid disorder, pneumonia) Differential Diagnosis: CHF X-Ray, Labs, Meds, VS Vital Signs Date Time Temp Pulse Resp B/P (MAP) Pulse Ox O2 Delivery O2 Flow Rate FiO2 05/28/24 05:29 97.7 90 20 159/75 (103) 98 97.7 05/28/24 04:17 75 05/28/24 03:40 98.6 83 18 161/83 (109) 100 98.6 05/28/24 03:32 75 Lab Test 05/28/24 05:08 05/28/24 03:55 Range/Units Troponin I High Sensitivity 16 17 </=34 ng/L White Blood Count 6.5 4.4-10.8 10^3/uL Red Blood Count 4.95 4.0-5.20 10^6/uL Hemoglobin 14.1 12.2-16.2 g/dL Hematocrit 40.9 36.0-46.0 % Mean Corpuscular Volume 82.6 80.0-100.0 fL Mean Corpuscular Hemoglobin 28.4 28.0-32.0 pg Mean Corpuscular Hemoglobin Concent 34.4 32.0-36.0 g/dL Red Cell Distribution Width 15.8 H 11.8-14.3 % Platelet Count 161 140-450 10^3/uL Mean Platelet Volume 6.8 L 6.9-10.8 fL Neutrophils (%) (Auto) 55.8 37.0-80.0 % Lymphocytes (%) (Auto) 31.8 10.0-50.0 % Monocytes (%) (Auto) 8.9 0.0-12.0 % Eosinophils (%) (Auto) 3.0 0.0-7.0 % Basophils (%) (Auto) 0.5 0.0-2.0 % Neutrophils # (Auto) 3.6 1.6-8.6 10 ^3/uL Lymphocytes # (Auto) 2.1 0.4-5.4 10 ^3/uL Monocytes # (Auto) 0.6 0-1.3 10 ^3/uL Eosinophils # (Auto) 0.2 0-0.8 10 ^3/uL Basophils # (Auto) 0 0-0.2 10 ^3/uL Nucleated Red Blood Cells 0.1 % Sodium Level 139 136-145 mmol/L Potassium Level 3.8 3.5-5.1 mmol/L Chloride Level 104 98-107 mmol/L Carbon Dioxide Level 29 20-31 mmol/L Anion Gap 6 5-15 Blood Urea Nitrogen 17 9-23 mg/dL Creatinine 0.78 0.550-1.02 mg/dL Glomerular Filtration Rate Calc 81 >90 mL/min BUN/Creatinine Ratio 21.8 H 10.0-20.0 Serum Glucose 124 H 74-106 mg/dL Calcium Level 10.6 H 8.7-10.4 mg/dL Total Bilirubin 0.5 0.2-1.0 mg/dL Aspartate Amino Transferase (AST) 10 L 13-40 U/L Alanine Aminotransferase (ALT) 14 7-40 U/L Alkaline Phosphatase 106 46-116 U/L B-Type Natriuretic Peptide 120.11 0-100 pg/mL Total Protein 7.5 5.7-8.2 g/dL Albumin 4.9 H 3.2-4.8 g/dL Thyroid Stimulating Hormone (TSH) 0.82 0.55-4.78 uIU/mL Time of 1ST Reevaluation: 04:30 Reevaluation 1ST: Unchanged Patient Education/Counseling: Diagnosis, Treatment, Prognosis Family Education/Counseling: No Family Present Departure 1 Departure Time of Disposition: 05:16 Impression: Primary Impression: Palpitations Disposition: 01 HOME / SELF CARE / HOMELESS Condition: Stable Additional Instructions: ED DISCHARGE INSTRUCTIONS Instructions: Please read all instructions provided in this packet carefully. Although you have been discharged from the Emergency Department, this does not mean that you have a "clean bill of health". No definitive diagnosis for your symptoms has been made today. It is possible that you are in the process of developing a serious illness. This is why you must return to the ED without fail if any new or worsening symptoms (especially if your symptoms include chest pain, trouble breathing, abdominal pain, fever, headache, confusion, trouble seeing, or trouble walking) It is also very important that you see a primary care doctor within the next 3-5 days to follow up. If you are unable to get an appointment, return to the ED for re-evaluation. PALPITATIONS EDUCATION Heart palpitations are the uncomfortable sensation that your heart is beating fast or irregularly. You might feel pounding or fluttering in your chest. It might feel like your heart is skipping a beat. Palpitations may be caused by a heart problem. But they also occur because of many other things. These include other health problems, stress, exercise, or use of alcohol, caffeine, or nicotine. Some prescription medicines and keaa-zxy-xmqihej medicines can also cause heart palpitations. Nearly everyone has palpitations from time to time. Depending on your symptoms, your doctor may need to do more tests to try to find the cause of your palpitations. Follow-up care is a burr part of your treatment and safety. Be sure to make and go to all appointments, and call your doctor if you are having problems. It's also a good idea to know your test results and keep a list of the medicines you take. How can you care for yourself at home? If they trigger palpitations, limit or avoid alcohol or caffeine. Do not smoke. If you need help quitting, talk to your doctor about stop-smoking programs and medicines. These can increase your chances of quitting for good. Ask your doctor whether you can take zzrz-veu-ipaojgn medicines (such as decongestants). These may cause palpitations. If you think you may have a problem with drug use, talk to your doctor. Certain drugs, such as cocaine and methamphetamine, can affect your heart rate and rhythm. If you have palpitations again, take deep breaths and try to relax. Or try any physical things that your doctor recommended. These may include bearing down or coughing. If you start to feel lightheaded, sit or lie down to avoid injuries that might result if you pass out and fall down. If your doctor recommends it, keep a record of your palpitations and bring it to your next doctor's appointment. Write down: The date and time. Your pulse. (If your heart is beating fast, it may be hard to count your pulse.) If your heart rhythm was regular or irregular. What you were doing when the palpitations started. How long the palpitations lasted. Any other symptoms. What may have helped your symptoms go away. If an activity causes palpitations, slow down or stop. Talk to your doctor before you do that activity again. Take your medicines exactly as prescribed. Call your doctor if you think you are having a problem with your medicine. When should you call for help? Call 911 anytime you think you may need emergency care. For example, call if: You passed out (lost consciousness). You have symptoms of a heart attack. These may include: Chest pain or pressure, or a strange feeling in the chest. Sweating. Shortness of breath. Pain, pressure, or a strange feeling in the back, neck, jaw, or upper belly or in one or both shoulders or arms. Lightheadedness or sudden weakness. A fast or irregular heartbeat. After you call 911, the trimming operator may tell you to chew 1 adult-strength or 2 to 4 low-dose aspirin. Wait for an ambulance. Do not try to drive yourself. You have symptoms of a stroke. These may include: Sudden numbness, tingling, weakness, or loss of movement in your face, arm, or leg, especially on only one side of your body. Sudden vision changes. Sudden trouble speaking. Sudden confusion or trouble understanding simple statements. Sudden problems with walking or balance. A sudden, severe headache that is different from past headaches. Call your doctor now or seek immediate medical care if: You have heart palpitations and: Are dizzy or lightheaded, or you feel like you may faint. Have new or increased shortness of breath. Watch closely for changes in your health, and be sure to contact your doctor if: You continue to have heart palpitations. Current as of: September 20, 2023 Author: Fingerprint Staff? Comments 73-year-old female with a history of AFib presented to the emergency department with a palpable with the patient's. Patient was in sinus rhythm during the ED observation and on EMS evaluation. Lab results reviewed, not urgently actionable. Patient's vital signs are stable. Patient felt stable for discharge home to follow up with the primary care provider. I reviewed the following notes from the pt's past medical encounters: Encounter notes from 04/2024 for hypertensive emergency The following tests were ordered, and results were reviewed by me: (See diagnostic results section) The following test were independently interpreted by me: EKG, chest x-ray Additional information was gathered from interviewing the following independent historians: EMS personnel I reviewed and agreed with the following test results read by other providers: Chest x-ray I discussed treatments and results with medical personnel and patient Decision regarding hospitalization or escalation of hospital level of care: Risks and benefits of admission for further treatment of patient's condition was considered however due to patient's stable condition patient will be discharged to follow up closely or return to care for worsening of condition or inability to follow up. Critical Care Note Critical Care Time?: No Stability Stability form required: No Heart Score Heart Score: Heart Score Response (Comments) Value History N/A 0 EKG N/A 0 Age N/A 0 Risk Factors N/A 0 Troponin N/A 0 Total 0 I personally scribed for LADY AG MD ([email or web address]) on 05/28/24 at 04:03. Electronically submitted by Tyrone Jon ([email or web address]). I personally scribed for LADY AG MD ([email or web address]) on 05/28/24 at 04:17. Electronically submitted by Tyrone Jon ([email or web address]). LADY AG MD May 28, 2024 04:03
[2024-05-28 04:15] LABS: Basophils # (auto) 0 10 ^3/uL (0-0.2); Basophils % (auto) 0.5 % (0.0-2.0); Eosinophils # (auto) 0.2 10 ^3/uL (0-0.8); Hematocrit 40.9 % (36.0-46.0); Hemoglobin 14.1 g/dL (12.2-16.2); Lymphocytes # (auto) 2.1 10 ^3/uL (0.4-5.4); Lymphocytes % (auto) 31.8 % (10.0-50.0); Mean Corpuscular Hemoglobin 28.4 pg (28.0-32.0); Mean Corpuscular Hgb Conc. 34.4 g/dL (32.0-36.0); Mean Corpuscular Volume 82.6 fL (80.0-100.0); Monocytes # (auto) 0.6 10 ^3/uL (0-1.3); Monocytes % (auto) 8.9 % (0.0-12.0); Neutrophils # (auto) 3.6 10 ^3/uL (1.6-8.6); Neutrophils % (auto) 55.8 % (37.0-80.0); Nucleated Red Blood Cells % 0.1 %; Platelet Count (auto) 161 10^3/uL (140-450); Red Blood Cells 4.95 10^6/uL (4.0-5.20); Red Cell Distribution Width 15.8 % (11.8-14.3); White Blood Cell 6.5 10^3/uL (4.4-10.8)
[2024-05-28 04:33] LABS: Alanine Aminotransferase 14 U/L (7-40); Albumin 4.9 g/dL (3.2-4.8); Alkaline Phosphatase 106 U/L (46-116); Anion Gap 6 (5-15); Aspartate Aminotransferase 10 U/L (13-40); BUN/Creatinine Ratio 21.8 (10.0-20.0); Bilirubin, Total 0.5 mg/dL (0.2-1.0); Blood Urea Nitrogen 17 mg/dL (9-23); Calcium 10.6 mg/dL (8.7-10.4); Carbon Dioxide 29 mmol/L (20-31); Chloride 104 mmol/L (98-107); Glucose 124 mg/dL (74-106); Potassium 3.8 mmol/L (3.5-5.1); Sodium 139 mmol/L (136-145); Total Protein 7.5 g/dL (5.7-8.2)
[2024-05-28 05:29] VITALS: BP 159/75; PULSE 90; RESP 20; TEMP 97.7; O2SAT 98
--- NOTE | 2024-05-28 05:40 | ECG ---
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
--- NOTE | 2024-05-28 05:58 | DVH ---
CHEST RADIOGRAPH Indication: cp Technique: Single frontal view of the chest was obtained COMPARISON: XY CHEST PORTABLE on DOS: 04/03/24 FINDINGS: Lines and Tubes: None Lungs: Clear Pleura: No effusion. No pneumothorax. Cardiomediastinal contours: Unremarkable Bones: Unremarkable IMPRESSION: No acute disease.
== END 2024-05-28 08:06 | disposition home or self-care (01) ==
LOC: EDBD 03:25 → ER 03:25
DX: R00.2 Palpitations (principal); R06.02 Shortness of breath; R07.89 Other chest pain; I10 Essential (primary) hypertension; I48.91 Unspecified atrial fibrillation; F03.90 Unspecified dementia, unspecified severity, without behavioral disturbance, psychotic disturbance, mood disturbance, and anxiety; Z79.01 Long term (current) use of anticoagulants; Z79.84 Long term (current) use of oral hypoglycemic drugs; Z79.899 Other long term (current) drug therapy; Z88.0 Allergy status to penicillin; Z88.5 Allergy status to narcotic agent
CPT/HCPCS: 36415; 71045; 80053; 83880; 84443; 84484; 85025; 93005

== ENCOUNTER 2024-05-28 09:04 | Inpatient (IN) | payer MEDICARE, MEDICAID ==
[~2024-05-28] VITALS: Ht 170.2 cm; Wt 86.5 kg
--- NOTE | 2024-05-28 11:05 | DVH ---
Exam: CT CT AB PEL WO CON-NO ORAL OR IV History: abdominal pain Comparison Study: CT CT AB PEL WO CON-NO ORAL OR IV on DOS: 05/19/24 Technique: Multidetector spiral CT of the abdomen and pelvis was performed from lung bases to pubic symphysis. Imaging was performed without IV contrast. Axial, coronal and sagittal multiplanar reform ats were obtained from the axial data set by the technologist. Radiation dose : Abdomen/Pelvis: CTDIvol 15.19 mGy, DLP 914.89 mGy*cm. Findings: Evaluation of solid organs is limited due to lack of intravenous contrast use. Lung Bases: No acute or significant lung base finding. Normal heart size. No pleural or pericardial effusion. Liver: The liver is normal in size. No focal lesions. Gallbladder and biliary Tree: Gallbladder is surgically absent. Spleen: Unremarkable Pancreas: The pancreas is grossly normal in appearance. Adrenal Glands: Unremarkable Kidneys: Kidneys are grossly normal without calculi or hydronephrosis. Bladder: Grossly unremarkable for degree of distention. Bowel: The stomach is grossly normal in appearance. Small bowel and colon are normal in caliber and d istribution. The appendix is not visualized; however, no secondary findings of acute appendicitis jason ntified. Wall thickening in the hepatic flexure of the colon. Ascites: Absent Lymphadenopathy: Subcentimeter retroperitoneal and mesenteric lymph nodes. Prominent bilateral ingui nal lymph nodes. Abdominal wall and Mesentery: Unremarkable. Vasculature: Calcified atherosclerotic disease. Pelvic Organs: Unremarkable Musculoskeletal: No aggressive focal bony lesions, acute fractures or dislocation. IMPRESSION: 1. No acute abdominal or pelvic findings. No hydronephrosis or nephrolithiasis. Nonspecific wall thic kening of the hepatic flexure of the colon could be due to under distention. Nonspecific retroperiton eal and mesenteric lymphadenopathy. Mildly prominent bilateral inguinal lymph nodes. Clinical correl ation and continued follow-up is recommended. Radiation optimization: All CT scans at this facility use at least one of these dose optimization corina hniques: Automated exposure control mA and/or kV adjustment per patient size (includes targeted exams where dose is matched to clinical indication) or iterative reconstruction. HS:Y
[2024-05-28 11:21] LABS: Basophils # (auto) 0 10 ^3/uL (0-0.2); Basophils % (auto) 0.5 % (0.0-2.0); Eosinophils # (auto) 0.1 10 ^3/uL (0-0.8); Eosinophils % (auto) 1.7 % (0.0-7.0); Hemoglobin 14.2 g/dL (12.2-16.2); Lymphocytes # (auto) 1.8 10 ^3/uL (0.4-5.4); Lymphocytes % (auto) 21.3 % (10.0-50.0); Mean Corpuscular Hemoglobin 27.7 pg (28.0-32.0); Mean Corpuscular Hgb Conc. 33.7 g/dL (32.0-36.0); Mean Corpuscular Volume 82.3 fL (80.0-100.0); Monocytes # (auto) 0.7 10 ^3/uL (0-1.3); Monocytes % (auto) 8.3 % (0.0-12.0); Neutrophils # (auto) 5.9 10 ^3/uL (1.6-8.6); Neutrophils % (auto) 68.2 % (37.0-80.0); Platelet Count (auto) 172 10^3/uL (140-450); Red Blood Cells 5.11 10^6/uL (4.0-5.20); Red Cell Distribution Width 15.6 % (11.8-14.3); White Blood Cell 8.6 10^3/uL (4.4-10.8)
[2024-05-28 11:31] LABS: Chloride 105 mmol/L (98-107); Potassium 3.5 mmol/L (3.5-5.1); Sodium 142 mmol/L (136-145)
[2024-05-28 11:32] LABS: Anion Gap 9 (5-15); Carbon Dioxide 28 mmol/L (20-31)
[2024-05-28 11:36] LABS: Calcium 10.8 mg/dL (8.7-10.4)
[2024-05-28 11:37] LABS: BUN/Creatinine Ratio 17.5 (10.0-20.0); Blood Urea Nitrogen 14 mg/dL (9-23)
[2024-05-28 11:38] LABS: Glucose 135 mg/dL (74-106)
--- NOTE | 2024-05-28 14:10 | ED.PDOC ---
History of Present Illness HPI Comments 73 year old presents to the ED with a chief complaint of constipation onset 2 days. Patient states she came to [facility] last night but left prior to being seen. Patient returns to ED due due to chest pain and palpitations since this morning, constipation for the past 2 days. Patient is a poor historian. PMHx dementia, HTN. Denies shortness of breath, diarrhea, nausea, vomiting, fever, chills. No other symptoms or modifying factors present at this time. Chief Complaint: Constipation Time Seen by MD: 14:02 Primary Care Provider: no Reviewed Notes: Medications, Allergies Allergies: Coded Allergies: Codeine (Verified Allergy, Unknown, 04/03/24) NSAIDs (Verified Allergy, Unknown, 04/03/24) Penicillins (Verified Allergy, Unknown, 04/03/24) Home Meds Active Scripts Calcium Polycarbophil (Fiber) 625 Mg Tab, 625 MG PO BID for 60 Days, #120 TAB Prov:BUD WALKER MD 05/19/24 Reported Medications Metoprolol Succinate (Metoprolol Succinate Er) 25 Mg Tab, 1 TAB PO DAILY, #30 TAB 5 Refills 04/03/24 Melatonin (MELATONIN) 3 Mg Tab, 3 MG OR HS, TAB 04/03/24 Metformin Hydrochloride (Metformin Hcl) 1,000 Mg Tab, 1 TAB PO BID, #60 TAB 5 Refills 04/03/24 Lorazepam (ATIVAN TABLET) 0.5 Mg Tb, 1 TAB PO HS, #90 TAB 04/03/24 Quetiapine Fumerate (QUETIAPINE FUMARATE) 100 Mg Tab, 100 MG PO QID, TAB 04/03/24 Pantoprazole Sodium Sesquihydr (Protonix) 40 Mg Tab, 40 MG PO DAILY, #30 TAB 04/03/24 Apixaban Base (ELIQUIS) 5 Mg Tab, 5 MG PO BID, TAB 04/03/24 Levothyroxine Sodium (Levothyroxine Sodium) 50 Mcg Tab, 50 MCG PO DAILY, TAB 04/03/24 Divalproex Sodium (Depakote) 250 Mg Tab, 125 MG PO BID, #60 TAB 2 Refills 04/03/24 Information Source: Patient Mode of Arrival: Ambulatory Severity: Moderate Timing: Days Duration: Since onset Prehospital treatment: None Past Medical History PAST MEDICAL HISTORY: Dementia, HTN Surgical History: Denies all surgeries 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 Family History Family History: Unknown Social History Smoker: Non-Smoker Alcohol: Denies ETOH Use Drugs: Denies Drug Use Lives In: Home Constitutional: denies: chills, diaphoresis, fatigue, fever, malaise, sweats, weakness, others EENTM: denies: blurred vision, double vision, ear bleeding, ear discharge, ear drainage, ear pain, ear ringing, eye pain, eye redness, hearing loss, mouth kayleigh n, mouth swelling, nasal discharge, nose bleeding, nose congestion, nose pain, photophobia, tearing, throat pain, throat swelling, voice changes, others Respiratory: denies: cough, hemoptysis, orthopnea, SOB at rest, shortness of breath, SOB with excertion, stridor, wheezing, others Cardiovascular: reports: chest pain; denies: dizzy spells, diaphoresis, Dyspnea on exertion, edema, irregular heart beat, left arm pain, lightheadedness, palpitations, PND, syncope, others Gastrointestinal: reports: constipated; denies: abdomen distended, abdominal pain, blood streaked bowels, diarrhea, dysphagia, difficulty swallowing, hematemesis, melena, nausea, poor appetite, poor fluid intake, rectal bleeding, rectal pain, vomiting, others Genitourinary: denies: abnormal vagina bleeding, burning, dyspareunia, dysuria, flank pain, frequency, hematuria, incontinence, pain, , vagina discharge, urgency, others Neurological: denies: dizziness, fainting, headache, left sided numbness, left sided weakness, numbness, paresthesia, pre-existing deficit, right sided numbness, right sided weakness, seizure, speech problems, tingling, tremors, weakness, others Musculoskeletal: denies: back pain, gout, joint pain, joint swelling, muscle pain, muscle stiffness, neck pain, others Integumetry: denies: bruises, change in color, change in hair/nails, dryness, laceration, lesions, lumps, rash, wounds, others Allergic/Immunocompromised: denies: Difficulty Healing, Frequent Infections, Hives, Itching, others Hematologic/Lymphatic: denies: anemia, blood clots, easy bleeding, easy bruising, swollen glands, others Endocrine: denies: excessive hunger, excessive sweating, excessive thirst, excessive urination, flushing, intolerance to cold, intolerance to heat, unexplained weight gain, unexplained weight loss, others Psychiatric: denies: anxiety, bipolar disorder, depression, hopeless, panic dis order, schizophrenia, sleepless, suicidal, others All Other Systems: Reviewed and Negative Physical Exam General Appearance: No Apparent Distress, Normal HEENT: Normal ENT Inspection, Pharynx Normal, TMs Normal Neck: Full Range of Motion, Non-Tender, Normal, Normal Inspection Respiratory: Chest Non-Tender, Lungs Clear, No Accessory Muscle Use, No Respiratory Distress, Normal Breath Sounds Cardiovascular: No Edema, No JVD, No Murmur, No Gallop, Normal Peripheral Pulses, Regular Rate/Rhythm Breast Exam: Deferred Gastrointestinal: No Organomegaly, Non Tender, No Pulsatile Mass, Normal Bowel Sounds, Soft Genitalia: Deferred Pelvic: Deferred Rectal: Deferred Extremities: No calf tenderness, Normal capillary refill, Normal inspection, Normal range of motion, Non-tender, No pedal edema Musculoskeletal : Apperance: Normal Neurologic: Alert, peoplesoft business analyst II-XII nml as Tested, No Motor Deficits, Normal Affect, Normal Mood, No Sensory Deficits Cerebellar Function: Normal Reflexes: Normal Skin: Dry, Normal Color, Warm Lymphatic: No Adenopathy Was a procedure done? Was a procedure done?: No X-Ray, Labs, Meds, VS Vital Signs Date Time Temp Pulse Resp B/P (MAP) Pulse Ox O2 Delivery O2 Flow Rate FiO2 05/28/24 11:56 97.6 105 16 135/59 (84) 95 97.6 05/28/24 09:20 98.0 113 17 141/94 (110) 97 98.0 Lab Test 05/28/24 10:43 Range/Units White Blood Count 8.6 # 4.4-10.8 10^3/uL Red Blood Count 5.11 4.0-5.20 10^6/uL Hemoglobin 14.2 12.2-16.2 g/dL Hematocrit 42.0 36.0-46.0 % Mean Corpuscular Volume 82.3 80.0-100.0 fL Mean Corpuscular Hemoglobin 27.7 L 28.0-32.0 pg Mean Corpuscular Hemoglobin Concent 33.7 32.0-36.0 g/dL Red Cell Distribution Width 15.6 H 11.8-14.3 % Platelet Count 172 140-450 10^3/uL Mean Platelet Volume 7.1 6.9-10.8 fL Neutrophils (%) (Auto) 68.2 37.0-80.0 % Lymphocytes (%) (Auto) 21.3 10.0-50.0 % Monocytes (%) (Auto) 8.3 0.0-12.0 % Eosinophils (%) (Auto) 1.7 0.0-7.0 % Basophils (%) (Auto) 0.5 0.0-2.0 % Neutrophils # (Auto) 5.9 1.6-8.6 10 ^3/uL Lymphocytes # (Auto) 1.8 0.4-5.4 10 ^3/uL Monocytes # (Auto) 0.7 0-1.3 10 ^3/uL Eosinophils # (Auto) 0.1 0-0.8 10 ^3/uL Basophils # (Auto) 0 0-0.2 10 ^3/uL Nucleated Red Blood Cells 0.0 % Sodium Level 142 136-145 mmol/L Potassium Level 3.5 3.5-5.1 mmol/L Chloride Level 105 98-107 mmol/L Carbon Dioxide Level 28 20-31 mmol/L Anion Gap 9 5-15 Blood Urea Nitrogen 14 9-23 mg/dL Creatinine 0.80 0.550-1.02 mg/dL Glomerular Filtration Rate Calc 78 >90 mL/min BUN/Creatinine Ratio 17.5 10.0-20.0 Serum Glucose 135 H 74-106 mg/dL Calcium Level 10.8 H 8.7-10.4 mg/dL Time of 1ST Reevaluation: 14:32 Reevaluation 1ST: Unchanged Patient Education/Counseling: Diagnosis, Treatment, Prognosis Family Education/Counseling: No Family Present Critical Care Note Critical Care Time?: No Stability Stability form required: No I personally scribed for NUHA TRUJILLO MD ([email or web address]) on 05/28/24 at 14:10. Electronically submitted by Juli Babcock ([email or web address]). NUHA TRUJILLO MD May 28, 2024 14:10
--- NOTE | 2024-05-28 16:16 | DVHHP2 ---
History of Present Illness Reason for Visit: Chest pain and abdominal pain History of Present Illness 73-year-old female past medical history dementia hypertension diabetes AFib on Eliquis hypothyroidism bipolar disorder anxiety chief complaint patient appears to be with mild dementia but she sitting in his chair and she states that she had abdominal pain and chest pain. When I had to get information off the ED records it shows abdominal pain since last night which got worse today . Patient states midepigastric pain she states since 1970s. But she was calm and collected in his wheelchair in his so I had to look at ED records for reason for coming in his feels that patient comes in with constipation for two days and some chest pain and palpitations. Patient also stated that she fell 2 times today she does have a mild headache no dizziness. She denies any shortness of the breath. When evaluating patient's labs and imaging CBC was unremarkable BNP unremarkable troponin x2 was negative CT scan abdomen pelvis is unremarkable. With these findings we will admit and do cardiac workup. An echocardiogram if abnormal echo we will need to consider Cardiology consult Past Medical History The dementia hypertension diabetes AFib hypothyroidism bipolar disorder anxiety Past Surgical History Unable to assess surgical history Family History Unable to assess family history Past Social History Unable to assess social history Review of Systems Constitutional: No: Fever, Chills, Sweats, Weakness, Malaise, Other Eyes: No: Pain, Vision change, Conjunctivae inflammation, Eyelid inflammation, Other, Redness ENT: No: Ear pain, Ear discharge, Nose pain, Nose discharge, Nose congestion, Mouth pain, Mouth swelling, Throat pain, Throat swelling, Other Respiratory: No: Cough, Dry, Shortness of breath, SOB with excertion, Wheezing, Hemoptysis, Pleuritic Pain, Sputum, Wheezing, Other Cardiovascular: Chest Pain, Palpitations; No: Orthopnea, Paroxysmal Noc. Dyspnea, Edema, Lt Headedness, Other Gastrointestinal: Abdominal Pain; No: Nausea, Vomiting, Diarrhea, Constipation, Melena, Hematochezia, Other Genitourinary: No Dysuria, No Frequency, No Incontinence, No Hematuria, No Retention, No Other Musculoskeletal: No: other, neck pain, shoulder pain, arm pain, back pain, hand pain, leg pain, foot pain Skin: No: Rash, Lesions, Jaundice, Bruising, Other Neurological: Other (Ache); No: Weakness, Numbness, Incoordination, Change in speech, Confusion, Seizures Allergies: Coded Allergies: Codeine (Verified Allergy, Unknown, 04/03/24) NSAIDs (Verified Allergy, Unknown, 04/03/24) Penicillins (Verified Allergy, Unknown, 04/03/24) Exam Vital Signs Vital Signs Date Time Temp Pulse Resp B/P (MAP) Pulse Ox O2 Delivery O2 Flow Rate FiO2 05/28/24 11:56 97.6 105 16 135/59 (84) 95 97.6 General Appearance: Alert, Oriented X3, Cooperative, mild distress HEENT: Atraumatic, PERRLA, EOMI, Mucous membr. moist/pink Respiratory: Clear to auscultation, Normal air movement Cardiovascular: Regular rate, Normal S1, Normal S2, No murmurs Abdominal: Normal bowel sounds, Soft, No tenderness, No hepatospenomegaly, No masses Extremities: No clubbing, No cyanosis, No edema, Normal pulses, No tende rness/swelling Skin: No rashes, No breakdown, No significant lesion Neuro: Other Psych/Mental Status: Mental status NL, Mood NL Labs/Xrays CT scan abdomen pelvis shows CHF and large volume of stool in rectum I reviewed labs, imaging CT scan abdomen pelvis, EKG and all diagnostic studies on this patient from ED records and the medical chart Labs Test 05/28/24 14:22 05/28/24 10:43 Range/Units Troponin I High Sensitivity 23 </=34 ng/L White Blood Count 8.6 # 4.4-10.8 10^3/uL Red Blood Count 5.11 4.0-5.20 10^6/uL Hemoglobin 14.2 12.2-16.2 g/dL Hematocrit 42.0 36.0-46.0 % Mean Corpuscular Volume 82.3 80.0-100.0 fL Mean Corpuscular Hemoglobin 27.7 L 28.0-32.0 pg Mean Corpuscular Hemoglobin Concent 33.7 32.0-36.0 g/dL Red Cell Distribution Width 15.6 H 11.8-14.3 % Platelet Count 172 140-450 10^3/uL Mean Platelet Volume 7.1 6.9-10.8 fL Neutrophils (%) (Auto) 68.2 37.0-80.0 % Lymphocytes (%) (Auto) 21.3 10.0-50.0 % Monocytes (%) (Auto) 8.3 0.0-12.0 % Eosinophils (%) (Auto) 1.7 0.0-7.0 % Basophils (%) (Auto) 0.5 0.0-2.0 % Neutrophils # (Auto) 5.9 1.6-8.6 10 ^3/uL Lymphocytes # (Auto) 1.8 0.4-5.4 10 ^3/uL Monocytes # (Auto) 0.7 0-1.3 10 ^3/uL Eosinophils # (Auto) 0.1 0-0.8 10 ^3/uL Basophils # (Auto) 0 0-0.2 10 ^3/uL Nucleated Red Blood Cells 0.0 % Sodium Level 142 136-145 mmol/L Potassium Level 3.5 3.5-5.1 mmol/L Chloride Level 105 98-107 mmol/L Carbon Dioxide Level 28 20-31 mmol/L Anion Gap 9 5-15 Blood Urea Nitrogen 14 9-23 mg/dL Creatinine 0.80 0.550-1.02 mg/dL Glomerular Filtration Rate Calc 78 >90 mL/min BUN/Creatinine Ratio 17.5 10.0-20.0 Serum Glucose 135 H 74-106 mg/dL Calcium Level 10.8 H 8.7-10.4 mg/dL Assessment/Plan Assessment/Plan acute chest pain r/o n stemi trop x3 negative ekg no stemi ordered metoprolol asa atorvastatin ordered Echocardiogram follow-up results if abnormal cards consult ddimer normal results ordered morphine as needed for pain, ordered nitro prn ordered cxr since not completed acute palpitations ordered tsh mag phos fu results ordered echo fu results on tele monitor acute constipation found on ct scan ordered miralax diet as tolerated Headache after a fall Order CT scan of the brain follow up results Fall precautions chronic problems Hypertensive urgency Type 2 diabetes ISS Hypothyroidism cont home medication TSH Bipolar disorder Anxiety Confusion History of atrial fibrillation on Eliquis and Lopressor fen/ppx diet ivf scd eliquis plan admit to tele cards consult Plan discussed with: Patient Date of Service: May 28, 2024 Billing Provider: JOSÉ MIGUEL QUIROZ DNP Common Visit Codes: 84146-[id number] INP/OBS CARE (HIGH) JOSÉ MIGUEL QUIROZ DNP May 28, 2024 16:16
[2024-05-28] MEDS ORDERED: ONDANSETRON HCL 4 MG/2 ML VIAL IV PRN (18:15)
[2024-05-28] MEDS ORDERED: MORPHINE SULFATE 4 MG/ML SYR/VIAL IV PRN (18:15)
[2024-05-28] MEDS ORDERED: NITROGLYCERIN 0.4 MG SL TAB SL PRN ×2 (18:15)
--- NOTE | 2024-05-28 18:50 | DVH ---
CHEST RADIOGRAPH Indication: acute chest pain and sob Technique: Single frontal view of the chest was obtained Comparison: XY CHEST XRAY 1 VIEW on DOS: 05/28/24, XY CHEST PORTABLE on DOS: 04/03/24 FINDINGS: Lines and Tubes: None Lungs: No focal consolidation. Pleura: No effusion. No pneumothorax. Cardiomediastinal contours: Unremarkable Bones: No acute osseous abnormality. IMPRESSION: No acute cardiopulmonary disease.
--- NOTE | 2024-05-28 18:52 | DVH ---
EXAM: CT HEAD WITHOUT CONTRAST HISTORY: acute headache after fall COMPARISON: None TECHNIQUE: Axial images were obtained and reformatted in coronal and sagittal planes. All CT scans at this medical facility are performed using dose modulation techniques as appropriate t o a performed exam including the following: Automated exposure control was utilized; adjustment of th e MA and/or KV according to patient size; and use of iterative reconstruction technique. CT Dose: CTDI volume is 58.13 mGy. Dose-length product is 931.82 mGy*cm FINDINGS: Supratentorial Region: No evidence for large acute territorial ischemia. No intracranial hemorrhage is noted. An old lacunar infarct noted in the left caudate head. Posterior Fossa: No acute abnormality. Brainstem: Unremarkable. Sellar/Suprasellar Region: Unremarkable. Ventricles, Cisterns, Sulci: Age-appropriate. Orbits: Unremarkable. Paranasal Sinuses: Unremarkable. Mastoid Air Cells: Unremarkable. Vasculature: Unremarkable. Bones/Soft Tissues: No acute abnormality. Other: None. IMPRESSION: 1. No acute intracranial process.
[2024-05-28] MEDS ORDERED: DEXTROSE (50%) 50ML SYRG IV PRN (19:15)
[2024-05-28 19:36] LABS: Magnesium 1.8 mg/dL (1.6-2.6)
[2024-05-28 19:38] LABS: Phosphorus 3.7 mg/dL (2.4-5.1)
[2024-05-28] MEDS: APIXABAN 5 MG TAB PO SCH (22:00)
[2024-05-28] MEDS: InsuLIN REG 1unit/0.01ml Soln (100units/ml) SC SCH (22:00)
[2024-05-28] MEDS: ATORVASTATIN 20 MG TAB PO SCH (22:00)
[2024-05-28] MEDS: QUEtiapine FUMARATE 100 MG TAB PO SCH (22:00)
[2024-05-28] MEDS: ACCU-CHEK COMFORT CURVE STRIP VI SCH (22:00)
[2024-05-28 22:21] VITALS: PULSE 86; RESP 12; O2SAT 97
[2024-05-29 07:57] LABS: Basophils # (auto) 0 10 ^3/uL (0-0.2); Basophils % (auto) 0.5 % (0.0-2.0); Eosinophils # (auto) 0.1 10 ^3/uL (0-0.8); Eosinophils % (auto) 2.2 % (0.0-7.0); Hematocrit 39.4 % (36.0-46.0); Hemoglobin 13.1 g/dL (12.2-16.2); Lymphocytes # (auto) 1.8 10 ^3/uL (0.4-5.4); Lymphocytes % (auto) 31.3 % (10.0-50.0); Mean Corpuscular Hemoglobin 27.5 pg (28.0-32.0); Mean Corpuscular Hgb Conc. 33.3 g/dL (32.0-36.0); Mean Corpuscular Volume 82.7 fL (80.0-100.0); Monocytes # (auto) 0.6 10 ^3/uL (0-1.3); Neutrophils # (auto) 3.1 10 ^3/uL (1.6-8.6); Nucleated Red Blood Cells % 0.1 %; Platelet Count (auto) 145 10^3/uL (140-450); Red Blood Cells 4.76 10^6/uL (4.0-5.20); Red Cell Distribution Width 15.7 % (11.8-14.3); White Blood Cell 5.6 10^3/uL (4.4-10.8)
[2024-05-29 08:00] VITALS: PULSE 100; RESP 15; O2SAT 96
[2024-05-29 08:06] LABS: Alanine Aminotransferase 16 U/L (7-40); Albumin 4.2 g/dL (3.2-4.8); Alkaline Phosphatase 86 U/L (46-116); Anion Gap 9 (5-15); Aspartate Aminotransferase 15 U/L (13-40); BUN/Creatinine Ratio 14.6 (10.0-20.0); Bilirubin, Total 0.6 mg/dL (0.2-1.0); Blood Urea Nitrogen 14 mg/dL (9-23); Carbon Dioxide 23 mmol/L (20-31); Chloride 107 mmol/L (98-107); Potassium 3.6 mmol/L (3.5-5.1); Sodium 139 mmol/L (136-145); Total Protein 6.4 g/dL (5.7-8.2)
[2024-05-29 08:07] LABS: Calcium 8.4 mg/dL (8.7-10.4); Glucose 229 mg/dL (74-106)
[2024-05-29] MEDS: PANTOPRAZOLE 40 MG TAB PO SCH (09:35)
[2024-05-29] MEDS: DOCUSATE SOD 100 MG CAP PO SCH ×2 (09:35→21:52)
[2024-05-29] MEDS: ASPirin 81 mg TAB PO SCH (09:37)
[2024-05-29] MEDS: METOPROLOL SUCCINATE XL 50 MG TAB PO SCH (09:37)
[2024-05-29] MEDS: LEVOTHYROXINE SODIUM 50 MCG TAB PO SCH (09:37)
[2024-05-29] MEDS: SODIUM CHLORIDE 0.9% 1,000 ML IV ONE (11:40)
[2024-05-29] MEDS: DOCUSATE SOD 100 MG CAP PO ONE (12:51)
--- NOTE | 2024-05-29 17:57 | DVHPNRES ---
Progress Note Date Seen: May 29, 2024 Resident Creating Document: A Has the PT tested + for MRSA If YES, has PT been informed?: No Medical Necessity Reason Pt with a Central, PICC or Fol: No Subjective Review of Systems This is a 73-year-old female with past medical history of dementia, hypertension, diabetes, paroxysmal AFib on Eliquis, hypothyroidism, bipolar, anxiety brought to the hospital from [facility] facility to the hospital due to chest pain since 1 days. She reports centralized chest pain, 6/10, constant, pressure-like, with no clear exacerbating or relieving factor. She also reports constipation, abdominal pain, and generalized weakness. She denies fever, shortness of breath, any recent bladder habit changes. Previous hospitalization: Patient was discharged on May 23, 2024, had admitted due to hypertensive urgency. PMHx: dementia, hypertension, diabetes, paroxysmal AFib on Eliquis, hypothyroidism, bipolar, anxiety PSHx: No significant Family history: Noncontributing Social history: Patient lives at [facility] facility Home medication: Apixaban, developed Cheema, levothyroxine, melatonin, metoprolol, quetiapine Allergic history: Codeine, NSAIDs and penicillin Patient seen and examined at the bedside. Patient is feeling better since admission, but still complained of chest pain. Patient reports: No new complaints Objective vital signs Vital Sign Date Time Temp Pulse Resp B/P (MAP) Pulse Ox O2 Delivery O2 Flow Rate FiO2 05/29/24 16:00 75 17 147/85 (105) 95 05/29/24 12:00 98.2 98.2 05/29/24 08:00 Room Air* 0 21 medications Current Medications Medications Dose Ordered Sig/Mee Route Start Time Stop Time Status Last Admin Dose Admin Apixaban 5 mg BID PO 05/28/24 22:00 05/29/24 09:37 5 MG Divalproex Sodium 125 mg BID PO 05/28/24 22:00 Levothyroxine Sodium 50 mcg DAILY PO 05/29/24 10:00 05/29/24 09:37 50 MCG Pantoprazole Sodium 40 mg DAILY PO 05/29/24 10:00 05/29/24 09:35 40 MG Quetiapine Fumarate 100 mg QID PO 05/28/24 22:00 05/29/24 06:24 100 MG Metoprolol Succinate 25 mg DAILY PO 05/29/24 10:00 05/29/24 09:37 25 MG Aspirin 81 mg DAILY PO 05/29/24 10:00 Atorvastatin Calcium 40 mg HS PO 05/28/24 22:00 Morphine Sulfate 2 mg Q30MP PRN IV 05/28/24 18:15 Nitroglycerin 0.4 mg Q5MINP PRN SL 05/28/24 18:15 Ondansetron HCl 4 mg Q4HP PRN IV 05/28/24 18:15 Diagnostic Test (Pha) 1 strip ACHS 05/28/24 22:00 05/29/24 16:45 1 STRIP Insulin Human Regular ACHS SC 05/28/24 22:00 05/29/24 16:47 4 UNITS Dextrose 50 ml UD PRN IV 05/28/24 19:15 Docusate Sodium 100 mg BID PO 05/29/24 22:00 Examination General Appearance: Alert, Oriented X3, Cooperative, No acute distress HEENT: Atraumatic, PERRLA, EOMI, Mucous membrane moist/pink Respiratory: Clear to auscultation, Normal air movement Cardiovascular: Regular rate, Normal S1, Normal S2, No murmurs, no chest wall tenderness Abdominal: Normal bowel sounds, Soft, No tenderness, No hepatospenomegaly, No masses Extremities: No clubbing, No cyanosis, No edema, Normal pulses, No tenderness/swelling Skin: No rashes, No breakdown, No significant lesion Neuro: Normal gait, Normal speech, Strength at 5/5 X4 ext, Normal tone, Sensation intact, Cranial nerves 3-12 NL, Reflexes 2+ Psych/Mental Status: Mental status NL, Mood NL laboratory and microbiology Laboratory Tests 05/29/24 07:15 Test 05/29/24 07:15 Range/Units Serum Glucose 229 H 74-106 mg/dL Labs and/or images reviewed: Labs reviewed by me, Image(s) reviewed by me Problem List/Assessment/Plan Problem List/Assessment/Plan Chest pain,? ACS Hypertension Dyslipidemia History of paroxysmal atrial fibula EKGs shows not normal sinus rhythm with no acute ST or T-wave changes Serial trop I is within normal limits Aspirin Continue home meds including metoprolol and atorvastatin, Eliquis Diabetes type 2, Insulin according to mild sliding scale Constipation Colace Dementia History of bipolar and anxiety Continue home meds Hypothyroidism Continue levothyroxine DIET: Cardiac diet DVT PROPHYLAXIS: Lovenox GI PROPHYLAXIS:: Protonix BOWEL REGIMEN: Colace CODE STATUS: Goal of care discussed for more than 18 minutes, full code DISPOSITION: Telemetry Patient's status and plan discussed with the patient and the patient's granddaughter through the phone. Case discussed with Dr. Wood. Plan discussed with: Patient, Other (Granddaughter and RN) My Orders My Orders Orders - HIMA CHARLES Procedure Category Date Status Time Electrocardigram EKG 05/29/24 Logged 09:50 Docusate Sodium PHA 05/29/24 In Process Capsule (Colace 22:00 Date of Service: May 29, 2024 Billing Provider: HEATHER BLACKWELL MD Common Visit Codes: [id number] INP/OBS CARE(HIGH) HIMA CAHRLES May 29, 2024 17:57 HEATHER BLACKWELL MD Jun 02, 2024 15:02
--- NOTE | 2024-05-29 19:15 | ECG ---
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
[2024-05-29 20:30] LABS: Urine Bacteria None Seen /hpf (None Seen)
[2024-05-29 20:46] LABS: Urine Blood Negative /uL (Negative); Urine Clarity Clear (Clear); Urine Color Colorless (Yellow); Urine Protein, UAD Negative (Negative); Urine Specific Gravity 1.005 (1.001-1.035); Urine Squamous Epithelial Cell None Seen /hpf (<5); Urine Urobilinogen Normal (Negative)
[2024-05-29 21:10] LABS: Urine WBC < 1 /HPF (0-5)
[2024-05-30] VITALS (8 sets, daily range): BP systolic 130–162; BP diastolic 66–81; PULSE 68–91; RESP 16–18; TEMP 36.6; O2SAT 94–99
[2024-05-30 05:52] LABS: Basophils # (auto) 0 10 ^3/uL (0-0.2); Basophils % (auto) 0.5 % (0.0-2.0); Eosinophils # (auto) 0.2 10 ^3/uL (0-0.8); Eosinophils % (auto) 2.9 % (0.0-7.0); Hematocrit 35.1 % (36.0-46.0); Hemoglobin 12.4 g/dL (12.2-16.2); Lymphocytes # (auto) 2.2 10 ^3/uL (0.4-5.4); Lymphocytes % (auto) 34.7 % (10.0-50.0); Mean Corpuscular Hemoglobin 28.8 pg (28.0-32.0); Mean Corpuscular Hgb Conc. 35.4 g/dL (32.0-36.0); Mean Corpuscular Volume 81.2 fL (80.0-100.0); Monocytes # (auto) 0.7 10 ^3/uL (0-1.3); Monocytes % (auto) 11.2 % (0.0-12.0); Neutrophils # (auto) 3.3 10 ^3/uL (1.6-8.6); Neutrophils % (auto) 50.7 % (37.0-80.0); Nucleated Red Blood Cells % 0.1 %; Platelet Count (auto) 141 10^3/uL (140-450); Red Blood Cells 4.32 10^6/uL (4.0-5.20); Red Cell Distribution Width 15.5 % (11.8-14.3); White Blood Cell 6.4 10^3/uL (4.4-10.8)
[2024-05-30 06:04] LABS: INR 1.25 (0.9-1.15); Partial Thromboplastin Time 29.9 SEC (24.5-34.5)
[2024-05-30 06:08] LABS: Alanine Aminotransferase 13 U/L (7-40); Albumin 3.9 g/dL (3.2-4.8); Alkaline Phosphatase 81 U/L (46-116); Anion Gap 7 (5-15); BUN/Creatinine Ratio 17.3 (10.0-20.0); Blood Urea Nitrogen 17 mg/dL (9-23); Calcium 9.8 mg/dL (8.7-10.4); Carbon Dioxide 26 mmol/L (20-31); Chloride 105 mmol/L (98-107); Potassium 3.6 mmol/L (3.5-5.1); Sodium 138 mmol/L (136-145); Total Protein 6.2 g/dL (5.7-8.2)
[2024-05-30 06:09] LABS: Bilirubin, Total 0.5 mg/dL (0.2-1.0)
[2024-05-30 06:11] LABS: Aspartate Aminotransferase 11 U/L (13-40); Glucose 189 mg/dL (74-106)
[2024-05-30] MEDS ORDERED: DOCU-94 PO (09:48)
--- NOTE | 2024-05-30 12:03 | DVHDSRES ---
Discharge Summary Date of Admission Resident Creating Document: HIMA CHARLES RESDIENT May 28, 2024 at 18:07 Date of Discharge: May 30, 2024 Admitting Diagnosis Chest pain Labs/Diagnostic Data: Laboratory Results Test 05/30/24 05:15 05/29/24 21:57 05/29/24 20:28 05/29/24 18:14 White Blood Count 6.4 10^3/uL (4.4-10.8) Red Blood Count 4.32 10^6/uL (4.0-5.20) Hemoglobin 12.4 g/dL (12.2-16.2) Hematocrit 35.1 % (36.0-46.0) Mean Corpuscular Volume 81.2 fL (80.0-100.0) Mean Corpuscular Hemoglobin 28.8 pg (28.0-32.0) Mean Corpuscular Hemoglobin Concent 35.4 g/dL (32.0-36.0) Red Cell Distribution Width 15.5 % (11.8-14.3) Platelet Count 141 10^3/uL (140-450) Mean Platelet Volume 7.0 fL (6.9-10.8) Neutrophils (%) (Auto) 50.7 % (37.0-80.0) Lymphocytes (%) (Auto) 34.7 % (10.0-50.0) Monocytes (%) (Auto) 11.2 % (0.0-12.0) Eosinophils (%) (Auto) 2.9 % (0.0-7.0) Basophils (%) (Auto) 0.5 % (0.0-2.0) Neutrophils # (Auto) 3.3 10 ^3/uL (1.6-8.6) Lymphocytes # (Auto) 2.2 10 ^3/uL (0.4-5.4) Monocytes # (Auto) 0.7 10 ^3/uL (0-1.3) Eosinophils # (Auto) 0.2 10 ^3/uL (0-0.8) Basophils # (Auto) 0 10 ^3/uL (0-0.2) Nucleated Red Blood Cells 0.1 % Prothrombin Time 13.0 sec (9.3-11.8) Prothrombin Time INR 1.25 (0.9-1.15) Activated Partial Thromboplast Time 29.9 SEC (24.5-34.5) Sodium Level 138 mmol/L (136-145) Potassium Level 3.6 mmol/L (3.5-5.1) Chloride Level 105 mmol/L (98-107) Carbon Dioxide Level 26 mmol/L (20-31) Anion Gap 7 (5-15) Blood Urea Nitrogen 17 mg/dL (9-23) Creatinine 0.98 mg/dL (0.550-1.02) Glomerular Filtration Rate Calc 61 mL/min (>90) BUN/Creatinine Ratio 17.3 (10.0-20.0) Serum Glucose 189 mg/dL (74-106) Calcium Level 9.8 mg/dL (8.7-10.4) Total Bilirubin 0.5 mg/dL (0.2-1.0) Aspartate Amino Transferase (AST) 11 U/L (13-40) Alanine Aminotransferase (ALT) 13 U/L (7-40) Alkaline Phosphatase 81 U/L (46-116) Total Protein 6.2 g/dL (5.7-8.2) Albumin 3.9 g/dL (3.2-4.8) POC Glucose 227 mg/dl (70-106) Urine Color Colorless (Yellow) Urine Clarity Clear (Clear) Urine pH 7.0 (5.0-9.0) Urine Specific [place] 1.005 (1.001-1.035) Urine Protein Negative (Negative) Urine Ketones Negative (Negative) Urine Blood Negative /uL (Negative) Urine Nitrite Negative (Negative) Urine Bilirubin Negative (Negative) Urine Urobilinogen Normal mg/dL (Negative) Urine Leukocyte Esterase Negative /uL (Negative) Urine RBC <1 /hpf (0 - 4) Urine Microscopic WBC < 1 /HPF (0-5) Urine Squamous Epithelial Cells None seen /hpf (<5) Urine Bacteria None seen /hpf (None Seen) Urine Glucose Normal mg/dL (Normal) D-Dimer, Quantitative 0.20 mg/L FEU (0.0-0.49) Test 05/28/24 18:31 Phosphorus Level 3.7 mg/dL (2.4-5.1) Magnesium Level 1.8 mg/dL (1.6-2.6) Troponin I High Sensitivity 25 ng/L (</=34) Thyroid Stimulating Hormone (TSH) 0.31 uIU/mL (0.55-4.78) Other Laboratory Tests 05/30/24 05:15 Brief Hx & Hospital Course: This is a 73-year-old female with past medical history of dementia, hypertension, diabetes, paroxysmal AFib on Eliquis, hypothyroidism, bipolar, anxiety [facility] to the hospital due to chest pain since 1 days. She reports centralized chest pain, 6/10, constant, pressure-like, with no clear exacerbating or relieving factor. She also reports constipation, abdominal pain, and generalized weakness. She denies fever, shortness of breath, any recent bladder habit changes. Previous hospitalization: Patient was discharged on May 23, 2024, had admitted due to hypertensive urgency. PMHx: dementia, hypertension, diabetes, paroxysmal AFib on Eliquis, hypothyroidism, bipolar, anxiety PSHx: No significant Family history: Noncontributing Social history: Patient lives at [facility] facility Home medication: Apixaban, developed Cheema, levothyroxine, melatonin, metoprolol, quetiapine Allergic history: Codeine, NSAIDs and penicillin Hospital course: Patient was admitted for chest pain to rule out ACS. Patient was given aspirin, atorvastatin and continued home medicine including apixaban, Divalproex, quetiapine, levothyroxine, and metoprolol. Patient was monitor on telemetry for 48 hours, and shows no event. EKGs showed normal sinus rhythm with no acute ST or T-wave changes, serial trop I is within normal limits. Patient was also complaining of aspiration, and resolved by given Colace. 05/30/2024, the patient was feeling better since admission, chest pain and constipation had relieved, discharge plan discussed with the patient and the patient was discharged to [facility] ([facility]) Discharge plan: Follow up with the PCP within 1 week of the discharge. Tablet Colace 100 mg daily for 7 days Continue home meds. Operations or Procedures [place] [address] Ph: [phone] DIAGNOSTIC IMAGING Diagnostic Imaging Report : [id number] Signed PATIENT: ESSENCE STALEY ACCT: [id number] UNIT: [id number] : 1950 LOC: ER ROOM / BED: / AGE / SEX: 73 / F ADM STATUS: REG ER SERVICE [id number] ORDERING PHYSICIAN: NUHA TRUJILLO MD PROCEDURE(s): ABPL - CT AB PEL WO CON-NO ORAL OR IV REASON: abdominal pain ORDER NUMBER(s): [id number], ACCESSION NUMBER(s): [id number] Exam: CT CT AB PEL WO CON-NO ORAL OR IV History: abdominal pain Comparison Study: CT CT AB PEL WO CON-NO ORAL OR IV on DOS: 05/19/24 Technique: Multidetector spiral CT of the abdomen and pelvis was performed from lung bases to pubic symphysis. Imaging was performed without IV contrast. Axial, coronal and sagittal multiplanar reformats were obtained from the axial data set by the technologist. Radiation dose : Abdomen/Pelvis: CTDIvol 15.19 mGy, DLP 914.89 mGy*cm. Findings: Evaluation of solid organs is limited due to lack of intravenous contrast use. Lung Bases: No acute or significant lung base finding. Normal heart size. No pleural or pericardial effusion. Liver: The liver is normal in size. No focal lesions. Gallbladder and biliary Tree: Gallbladder is surgically absent. Spleen: Unremarkable Pancreas: The pancreas is grossly normal in appearance. Adrenal Glands: Unremarkable Kidneys: Kidneys are grossly normal without calculi or hydronephrosis. Bladder: Grossly unremarkable for degree of distention. Bowel: The stomach is grossly normal in appearance. Small bowel and colon are normal in caliber and distribution. The appendix is not visualized; however, no secondary findings of acute appendicitis identified. Wall thickening in the hepatic flexure of the colon. Ascites: Absent Lymphadenopathy: Subcentimeter retroperitoneal and mesenteric lymph nodes. Prominent bilateral inguinal lymph nodes. Abdominal wall and Mesentery: Unremarkable. Vasculature: Calcified atherosclerotic disease. Pelvic Organs: Unremarkable Musculoskeletal: No aggressive focal bony lesions, acute fractures or dislocation. IMPRESSION: 1. No acute abdominal or pelvic findings. No hydronephrosis or nephrolithiasis. Nonspecific wall thickening of the hepatic flexure of the colon could be due to under distention. Nonspecific retroperitoneal and mesenteric lymphadenopathy. Mildly prominent bilateral inguinal lymph nodes. Clinical correlation and continued follow-up is recommended. Radiation optimization: All CT scans at this facility use at least one of these dose optimization techniques: Automated exposure control mA and/or kV adjustment per patient size (includes targeted exams where dose is matched to clinical indication) or iterative reconstruction. HS:Y ATED BY: PEPE FLORES MD DICTATED DATE/TIME: 05/28/24 110 SIGNED BY: PEPE FLORES MD SIGNED DATE/TIME: 05/28/24 110 CC: Condition at Discharge: Stable Final Diagnosis/Problems List Chest pain likely due to musculoskeletal ruled out ACS Hypertension Dyslipidemia History of paroxysmal atrial fibula Diabetes type 2, Constipation Dementia History of bipolar and anxiety Hypothyroidism acute palpitations constipation Headache No fall history Discharge Disposition: Home Discharge Instruct/Medications Diet: Cardiac 2g Na,low cholest Activity: No Restrictions, As Tolerated Follow Up/Referral: Folow up with PCP within one week after discharge. Medications: Colace 100mg daily for 10 days continue home meds Discharge Statement: "Patient was advised to return to the ER or call 911 if any headaches, dizziness, shortness of breath, chest pain, abdominal pain, bleeding, fevers, or worsening of medical condition. Patient was counseled about treatment plan, medications, possible side effects, patientverbalized understanding. All questions were answered to the best of my ability. This discharge took greater then 30 minutes in planning, reviewing documentation, counseling the patient, and discussing with other team members." ASSESSMENT ASSESSMENT Assessment Chest pain, Rulled out ACS Date of Service: May 30, 2024 Billing Provider: HEATHER BLACKWELL MD Common Visit Codes: [id number] DISCH DAY >30min HIMA CHARLES RESDIENT May 30, 2024 12:03 HEATHER BLACKWELL MD Jun 03, 2024 09:19
[2024-05-30 15:50] LABS: Amphetamine Screen, Urine Neg (NEGATIVE); Barbiturate Scree,Urine Neg (NEGATIVE); Benzodiazephine Screen, Urine Neg (NEGATIVE); Cannabinoid Screen, Urine Neg (NEGATIVE); Cocaine Screen, Urine Neg (NEGATIVE); Opiate Scree,Urine Neg (NEGATIVE); Phencyclidine Screen, Urine Neg (NEGATIVE)
[2024-05-31 12:04] LABS: Hepatitis B Surface Antigen Negative (Negative); Hepatitis C Antibody Negative (Negative)
--- NOTE | 2024-06-03 19:07 | DVHSR ---
APPROVED REPORT EXAM: Two-dimensional and M-mode echocardiogram with Doppler and color Doppler. Blood Pressure: 155/93 mmHg INDICATION Chest Pain RISK FACTORS Height: 5'7", Weight: 161 DIMENSIONS LVDd3.6 (3.8-5.7cm)LA (2D)5.1 (1.9-4.0cm)Aortic Root (2.0-3.7cm) LVDs2.6 (2.5-4.0cm)LA (MM) (1.9-4.0cm)Aortic Cusp Exc (1.5-2.0cm) EF (%) 55.0 (55-70%)Rt. Atrium4.1 (1.9-4.0cm)Asc. Aorta cm IVSd1.5 (0.7-1.1cm)RV (D) (1.8-2.4cm) Mitral Valve MitralMitral Stenosis E/A ratio0.02D MVAcm2 Aortic Valve Aortic ValveAortic Stenosis V11.05m/Tim Mean GR.8mmHg V21.73m/Tim Peak GR.12mmHg LVOT Diameter2.0 (1.8-2.4cm)Doppler AVA1.91cm2 Other Information Quality : Technically LimitedRhythm : Technically limited study due to patient moving. Conclusion Sinus rhythm. Off axis views. Concentric LVH. Biatrial enlargement. Mild aortic sclerosis. No critical stenosis. Limited views appears visualization of the aortic valv e in its entirety. The mitral appears to be structurally normal. The tricuspid appears to be normal . The pulmonic is not visualized. Left ventricular systolic performance is preserved at 60% with normal RV function. Doppler reveals no significant regurgitant jets. Peak gradient across the aortic valve at 11 mmHg co nsistent with mild sclerosis. Mild tricuspid regurgitation. No pericardial effusion masses or vegetations discernible.
== END 2024-05-30 12:05 | disposition home or self-care (01) | DRG 313 ==
LOC: ER 09:04 → OVERFLOW 18:07 → TELE-EAST 05-29 23:47
PROVIDERS: ADMIT Student in an Organized Health Care Education/Training Program; ATTEND Student in an Organized Health Care Education/Training Program
DX: R07.89 Other chest pain (principal); F03.93 Unspecified dementia, unspecified severity, with mood disturbance; E03.9 Hypothyroidism, unspecified; K59.00 Constipation, unspecified; F31.9 Bipolar disorder, unspecified; I10 Essential (primary) hypertension; E11.9 Type 2 diabetes mellitus without complications; E78.5 Hyperlipidemia, unspecified; F41.9 Anxiety disorder, unspecified; I48.91 Unspecified atrial fibrillation; Z88.0 Allergy status to penicillin; Z88.5 Allergy status to narcotic agent; Z79.01 Long term (current) use of anticoagulants; Z79.84 Long term (current) use of oral hypoglycemic drugs; Z79.899 Other long term (current) drug therapy
CPT/HCPCS: 36415; 70450; 71045; 74176; 80048; 80053; 80307; 81001; 82962; 83735; 83880; 84100; 84443; 84484; 85025; 85379; 85610; 85730; 86803; 87081; 87340; 93005; 93306; G0378; J1815

== ENCOUNTER 2024-06-08 12:16 | Emergency (ER) | payer MEDICARE, MEDICAID ==
[~2024-06-08] VITALS: Ht 165.1 cm; Wt 73.0 kg
[~2024-06-08 12:16] MED LIST changes: +DOCU-94 PO; -LORA-1121 PO
--- NOTE | 2024-06-08 13:47 | ED.PDOC ---
History of Present Illness HPI Comments 73 year old female presents to the ED with chief complaint of left chest/rib pain. Patient reports that she has been experiencing intermittent chest pains with associated left sided rib pain and diffuse abdominal pain for the past few years, starting again for about a week. Patient claims that she has not seen her PCP in years. Patient states her pain is worsened with cough and deep inspiration. Patient denies any SOB, dizziness, fall, injury, N/V/D, dysuria, or back pain. Chief Complaint: Rib Pain Time Seen by MD: 13:44 Primary Care Provider: no Reviewed Notes: Nurses Notes, Medications, Allergies Allergies: Coded Allergies: Codeine (Verified Allergy, Unknown, 04/03/24) NSAIDs (Verified Allergy, Unknown, 04/03/24) Penicillins (Verified Allergy, Unknown, 04/03/24) Home Meds Active Scripts Hydrocodone-Acetaminophen (Hydrocodone Bitartrate/AC 5-325 mg) 1 Tab Tab, 1 TAB PO Q6HP PRN, #10 TAB Prov:ARIELLA EVANS MD 06/08/24 Docusate Sodium (Colace) 100 Mg Cap, 1 CAP PO DAILY PRN for 10 Days, #10 CAP Prov:HIMA CHARLES RESDIENT 05/30/24 Calcium Polycarbophil (Fiber) 625 Mg Tab, 625 MG PO BID for 60 Days, #120 TAB Prov:BUD WALKER MD 05/19/24 Reported Medications Metoprolol Succinate (Metoprolol Succinate Er) 25 Mg Tab, 1 TAB PO DAILY, #30 TAB 5 Refills 04/03/24 Melatonin (MELATONIN) 3 Mg Tab, 3 MG OR HS, TAB 04/03/24 Metformin Hydrochloride (Metformin Hcl) 1,000 Mg Tab, 1 TAB PO BID, #60 TAB 5 Refills 04/03/24 Quetiapine Fumerate (QUETIAPINE FUMARATE) 100 Mg Tab, 100 MG PO QID, TAB 04/03/24 Pantoprazole Sodium Sesquihydr (Protonix) 40 Mg Tab, 40 MG PO DAILY, #30 TAB 04/03/24 Apixaban Base (ELIQUIS) 5 Mg Tab, 5 MG PO BID, TAB 04/03/24 Levothyroxine Sodium (Levothyroxine Sodium) 50 Mcg Tab, 50 MCG PO DAILY, TAB 04/03/24 Divalproex Sodium (Depakote) 250 Mg Tab, 125 MG PO BID, #60 TAB 2 Refills 04/03/24 Information Source: Patient Mode of Arrival: EMS Severity: Moderate Timing: Weeks Duration: Since onset Prehospital treatment: None Medication Refill: For: Pain Past Medical History PAST MEDICAL HISTORY: AFIB, Dementia, DM, High Lipids, HTN, Thyroid Past Medical History (Other): Anxiety, bipolar disorder Surgical History: Appendectomy, Cholecystectomy 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: Denies all 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 Family History Family History: Unknown Social History Smoker: Non-Smoker Alcohol: Denies ETOH Use Drugs: Denies Drug Use Lives In: Home Constitutional: denies: chills, diaphoresis, fatigue, fever, malaise, sweats, weakness, others EENTM: denies: blurred vision, double vision, ear bleeding, ear discharge, ear drainage, ear pain, ear ringing, eye pain, eye redness, hearing loss, mouth pain, mouth swelling, nasal discharge, nose bleeding, nose congestion, nose pain, photophobia, tearing, throat pain, throat swelling, voice changes, others Respiratory: reports: cough; denies: hemoptysis, orthopnea, SOB at rest, shortness of breath, SOB with excertion, stridor, wheezing, others Cardiovascular: reports: chest pain; denies: dizzy spells, diaphoresis, Dyspnea on exertion, edema, irregular heart beat, left arm pain, lightheadedness, palpitations, PND, syncope, others Gastrointestinal: reports: abdominal pain; denies: abdomen distended, blood streaked bowels, constipated, diarrhea, dysphagia, difficulty swallowing, hematemesis, melena, nausea, poor appetite, poor fluid intake, rectal bleeding, rectal pain, vomiting, others Genitourinary: denies: abnormal vagina bleeding, burning, dyspareunia, dysuria, flank pain, frequency, hematuria, incontinence, pain, , vagina discharge, urgency, others Neurological: denies: dizziness, fainting, headache, left sided numbness, left sided weakness, numbness, paresthesia, pre-existing deficit, right sided nu mbness, right sided weakness, seizure, speech problems, tingling, tremors, weakness, others Musculoskeletal: reports: others (Left rib pain); denies: back pain, gout, joint pain, joint swelling, muscle pain, muscle stiffness, neck pain Integumetry: denies: bruises, change in color, change in hair/nails, dryness, laceration, lesions, lumps, rash, wounds, others Allergic/Immunocompromised: denies: Difficulty Healing, Frequent Infections, Hives, Itching, others Hematologic/Lymphatic: denies: anemia, blood clots, easy bleeding, easy bruising, swollen glands, others Endocrine: denies: excessive hunger, excessive sweating, excessive thirst, excessive urination, flushing, intolerance to cold, intolerance to heat, unexplained weight gain, unexplained weight loss, others Psychiatric: denies: anxiety, bipolar disorder, depression, hopeless, panic disorder, schizophrenia, sleepless, suicidal, others All Other Systems: Reviewed and Negative Physical Exam General Appearance: No Apparent Distress HEENT: Other (Pupils and face symmetric. Moist mucous membranes.) Neck: Full Range of Motion, Normal Inspection Respiratory: Lungs Clear, No Accessory Muscle Use, No Respiratory Distress, Normal Breath Sounds, Other (Pain reproducible with palpation of the left chest wall) Cardiovascular: No Edema, No JVD, Regular Rate/Rhythm Breast Exam: Deferred Gastrointestinal: LLQ, LUQ, Soft, Tenderness (Left abdominal) Genitalia: Deferred Pelvic: Deferred Rectal: Deferred Extremities: Normal inspection, Normal range of motion, Non-tender, No pedal edema Neurologic: Alert (Oriented x4), Normal Affect, Normal Mood, Other (Moves all extremities.) Cerebellar Function: NOT DONE Reflexes: NOT DONE Skin: Dry, Normal Color, Warm Lymphatic: NOT DONE Was a procedure done? Was a procedure done?: No EKG EKG : Comments Sinus or ectopic atrial rhythm, rate 74, normal intervals, borderline left axis deviation, LVH, no ST/T changes. Differential Dx Considerations may include: Chest wall pain/costochondritis, pleurisy, bronchitis, pneumonia, ACS, [place], arrhythmia, anxiety, gastroenteritis, gastritis, UTI, kidney stone, diverticular disease, colitis, among others X-Ray, Labs, Meds, VS Vital Signs Date Time Temp Pulse Resp B/P (MAP) Pulse Ox O2 Delivery O2 Flow Rate FiO2 06/08/24 14:40 98.3 85 18 133/61 (85) 98 98.3 06/08/24 14:40 85 18 98 Room Air* 0 21 06/08/24 12:28 98.1 73 16 128/78 (95) 98 98.1 Lab Test 06/08/24 15:06 06/08/24 14:05 06/08/24 13:56 Range/Units Troponin I High Sensitivity 8 8 </=34 ng/L Urine Color Light-yellow Yellow Urine Clarity Clear Clear Urine pH 5.5 5.0-9.0 Urine Specific Ball 1.008 1.001-1.035 Urine Protein Negative Negative Urine Ketones Negative Negative Urine Blood Negative Negative /uL Urine Nitrite Negative Negative Urine Bilirubin Negative Negative Urine Urobilinogen Normal Negative mg/dL Urine Leukocyte Esterase Negative Negative /uL Urine RBC 1 0 - 4 /hpf Urine Microscopic WBC < 1 0-5 /HPF Urine Squamous Epithelial Cells None seen <5 /hpf Urine Bacteria None seen None Seen /hpf Urine Glucose Normal Normal mg/dL White Blood Count 9.9 4.4-10.8 10^3/uL Red Blood Count 5.13 4.0-5.20 10^6/uL Hemoglobin 14.2 12.2-16.2 g/dL Hematocrit 42.4 36.0-46.0 % Mean Corpuscular Volume 82.5 80.0-100.0 fL Mean Corpuscular Hemoglobin 27.6 L 28.0-32.0 pg Mean Corpuscular Hemoglobin Concent 33.4 32.0-36.0 g/dL Red Cell Distribution Width 15.7 H 11.8-14.3 % Platelet Count 147 140-450 10^3/uL Mean Platelet Volume 7.0 6.9-10.8 fL Neutrophils (%) (Auto) 59.9 37.0-80.0 % Lymphocytes (%) (Auto) 29.5 10.0-50.0 % Monocytes (%) (Auto) 8.6 0.0-12.0 % Eosinophils (%) (Auto) 1.5 0.0-7.0 % Basophils (%) (Auto) 0.5 0.0-2.0 % Neutrophils # (Auto) 5.9 1.6-8.6 10 ^3/uL Lymphocytes # (Auto) 2.9 0.4-5.4 10 ^3/uL Monocytes # (Auto) 0.8 0-1.3 10 ^3/uL Eosinophils # (Auto) 0.2 0-0.8 10 ^3/uL Basophils # (Auto) 0 0-0.2 10 ^3/uL Nucleated Red Blood Cells 0.1 % Sodium Level 142 136-145 mmol/L Potassium Level 4.2 3.5-5.1 mmol/L Chloride Level 103 98-107 mmol/L Carbon Dioxide Level 28 20-31 mmol/L Anion Gap 11 5-15 Blood Urea Nitrogen 19 9-23 mg/dL Creatinine 0.78 0.550-1.02 mg/dL Glomerular Filtration Rate Calc 81 >90 mL/min BUN/Creatinine Ratio 24.4 H 10.0-20.0 Serum Glucose 95 74-106 mg/dL Calcium Level 10.3 8.7-10.4 mg/dL Total Bilirubin 0.5 0.2-1.0 mg/dL Aspartate Amino Transferase (AST) 12 L 13-40 U/L Alanine Aminotransferase (ALT) 15 7-40 U/L Alkaline Phosphatase 81 46-116 U/L Total Protein 7.0 5.7-8.2 g/dL Albumin 4.5 3.2-4.8 g/dL Lipase 31 12-53 U/L Current Medications Medications (Trade) Dose Ordered Sig/Mee Route Start Time Stop Time Status Last Admin Acetaminophen/ Hydrocodone Bitart (Hannibal 5/325MG Tab) 1 tab ONCE ONCE PO 06/08/24 13:45 06/08/24 13:46 DC 06/08/24 14:48 Chest XR: IMPRESSION: No acute cardiopulmonary disease. CT Abd/Pel: IMPRESSION: 1. No nephrolithiasis or hydronephrosis 2. Possible 2 mm punctate calculus distal right ureter. Series 6 image 63. X-Ray, Labs, Meds, VS Comment 73-year-old female with a history of dementia, hypertension, diabetes, dyslipidemia, paroxysmal AFib, GERD, thyroid disease, bipolar disorder and anxiety complaining of an exacerbation of chronic left-sided chest wall pain and left-sided abdominal pain Vitals unremarkable Exam remarkable for reproducible pain on palpation of the left chest wall, left- sided abdominal tenderness Rhythm strip independently interpreted by me: Sinus rhythm, rate 73, no ectopy. Chest x-ray unremarkable CT abdomen and pelvis IMPRESSION: 1. No nephrolithiasis or hydronephrosis 2. Possible 2 mm punctate calculus distal right ureter. Series 6 image 63. CBC, CMP, lipase, UA, BNP and 2 serial troponins unremarkable Patient treated with the following in the ED: Hannibal 5/325 mg p.o. with improvement of her symptoms. Hospitalization was considered, however and had rapid improvement of symptoms with treatment in the ED, and I no longer feel hospitalization is necessary. On review of prior records. Patient was seen here on 05/28/2024 and underwent cardiac workup. Echocardiogram showed 60% ejection fraction and serial troponins were negative at that time. Patient denies any urinary symptoms at this time, abdominal exam is benign on re-evaluation, and I am comfortable discharging the patient with close follow-up with her primary physician and a prescription for pain medication. Rx Hannibal Time of 1ST Reevaluation: 14:44 Reevaluation 1ST: Unchanged Patient Education/Counseling: Diagnosis, Treatment Family Education/Counseling: No Family Present Additional Information -Reviewed patient's previous visit(s): 05/28/24 for chest pain - The following tests were ordered, and results were reviewed by me: CBC, CMP, Lipase, UA, Troponin, EKG, CXR, CT Abd/Pel - Additional information was gathered from interviewing the following independent Historian: None - I reviewed and agreed with the following test results read by other provider: CXR, CT Abd/Pel - I discussed treatments and results with medical personnel and: patient Comprehensive systems review obtained and negative except for what is stated in the HPI. Departure 1 Departure Time of Disposition: 17:11 Impression: Primary Impression: Chest wall pain Additional Impression: Ureterolithiasis Disposition: HOME / SELF CARE / HOMELESS Condition: Stable Additional Instructions: Your blood tests, including screening test for heart attack and heart failure, were unremarkable. Your urine test was normal. Your chest x-ray was unremarkable. Your CT scan showed a possible kidney stone in the right ureter, however your pain is on the left side, so this is likely an incidental finding, and unlikely to be the cause of your pain. I have prescribed pain medication. Follow-up with your primary doctor in 1-2 days. e-Prescriptions Hydrocodone-Acetaminophen (Hydrocodone Bitartrate/AC 5-325 mg) 1 Tab Tab 1 TAB PO Q6HP PRN, #10 TAB Prov: ARIELLA EVANS MD 06/08/24 Discharged With: [facility] Counsellor Critical Care Note Critical Care Time?: No Stability Stability form required: No Heart Score Heart Score: Heart Score Response (Comments) Value History Slightly Suspicious 0 EKG Repolarization Disturb 1 Age >65 2 Risk Factors >3 or Hx ASHD 2 Troponin Normal limit 0 Total 5 I personally scribed for ARIELLA EVANS MD ([facility]) on 06/08/24 at 13:47. Electronically submitted by Celso Moore ([email or web address]). I personally scribed for [facility]LLA [facility]ANS [facility] ([facility] on 06/08/24 at 15:21. Electronically submitted by Celso Moore ([email or web address]). ARIELLA EVANS MD Jun 08, 2024 13:47
[2024-06-08 14:21] LABS: Basophils # (auto) 0 10 ^3/uL (0-0.2); Basophils % (auto) 0.5 % (0.0-2.0); Eosinophils # (auto) 0.2 10 ^3/uL (0-0.8); Eosinophils % (auto) 1.5 % (0.0-7.0); Hematocrit 42.4 % (36.0-46.0); Hemoglobin 14.2 g/dL (12.2-16.2); Lymphocytes # (auto) 2.9 10 ^3/uL (0.4-5.4); Lymphocytes % (auto) 29.5 % (10.0-50.0); Mean Corpuscular Hemoglobin 27.6 pg (28.0-32.0); Mean Corpuscular Hgb Conc. 33.4 g/dL (32.0-36.0); Mean Corpuscular Volume 82.5 fL (80.0-100.0); Monocytes # (auto) 0.8 10 ^3/uL (0-1.3); Monocytes % (auto) 8.6 % (0.0-12.0); Neutrophils # (auto) 5.9 10 ^3/uL (1.6-8.6); Neutrophils % (auto) 59.9 % (37.0-80.0); Nucleated Red Blood Cells % 0.1 %; Platelet Count (auto) 147 10^3/uL (140-450); Red Blood Cells 5.13 10^6/uL (4.0-5.20); Red Cell Distribution Width 15.7 % (11.8-14.3); White Blood Cell 9.9 10^3/uL (4.4-10.8)
[2024-06-08 14:35] LABS: Alanine Aminotransferase 15 U/L (7-40); Albumin 4.5 g/dL (3.2-4.8); Alkaline Phosphatase 81 U/L (46-116); Anion Gap 11 (5-15); BUN/Creatinine Ratio 24.4 (10.0-20.0); Bilirubin, Total 0.5 mg/dL (0.2-1.0); Blood Urea Nitrogen 19 mg/dL (9-23); Calcium 10.3 mg/dL (8.7-10.4); Carbon Dioxide 28 mmol/L (20-31); Chloride 103 mmol/L (98-107); Glucose 95 mg/dL (74-106); Lipase 31 U/L (12-53); Potassium 4.2 mmol/L (3.5-5.1); Sodium 142 mmol/L (136-145)
[2024-06-08 14:35] LABS: Urine Bacteria None Seen /hpf (None Seen)
[2024-06-08 14:36] LABS: Aspartate Aminotransferase 12 U/L (13-40)
[2024-06-08 14:40] VITALS: PULSE 85; RESP 18; O2SAT 98
[2024-06-08 14:43] LABS: Urine Blood Negative /uL (Negative); Urine Clarity Clear (Clear); Urine Protein, UAD Negative (Negative); Urine Specific Gravity 1.008 (1.001-1.035); Urine Squamous Epithelial Cell None Seen /hpf (<5); Urine Urobilinogen Normal (Negative); Urine WBC < 1 /HPF (0-5); Urine pH 5.5 (5.0-9.0)
--- NOTE | 2024-06-08 14:44 | DVH ---
CHEST RADIOGRAPH Indication: L chest pain Technique: Single frontal view of the chest was obtained Comparison: XY CHEST XRAY 1 VIEW on DOS: 05/28/24, XY CHEST XRAY 1 VIEW on DOS: 05/28/24, XY CHEST PORTAB LE on DOS: 04/03/24 FINDINGS: Lines and Tubes: None Lungs: No focal consolidation. Pleura: No effusion. No pneumothorax. Cardiomediastinal contours: Unremarkable Bones: No acute osseous abnormality. IMPRESSION: No acute cardiopulmonary disease.
[2024-06-08 14:45] LABS: Urine Color Light-Yellow (Yellow)
[2024-06-08] MEDS: HYDROcodone-ACET 5/325MG TAB PO ONE (14:48)
--- NOTE | 2024-06-08 14:58 | DVH ---
Exam: CT CT AB PEL WO CON-NO ORAL OR IV History: L sided abdominal pain Comparison Study: None available at time of dictation. TECHNIQUE: Multidetector CT of the abdomen was performed from lung bases to pubic symphysis. Imaging was performed without IV contrast. Axial, coronal and sagittal multiplanar reformats were obtained fr om the axial data set by the technologist. Radiation Dose Information: CT Dose: CTDI volume is 22.55 mGy. Dose-length product is 1226.25 mGy*cm FINDINGS: Evaluation of solid organs is limited due to lack of intravenous contrast use. Findings: Lung Bases: No acute or significant lung base finding. Normal heart size. No pleural or pericardial effusion. Liver: The liver is normal in size. No focal lesions. Gallbladder and Biliary Tree: Unremarkable Spleen: Unremarkable Pancreas: The pancreas is grossly normal in appearance. Adrenal Glands: Unremarkable Kidneys: Kidneys are grossly normal without calculi or hydronephrosis. Possible 2 mm calculus in the distal left ureter and area of the bladder. Series 6, image 163 Bladder: Grossly unremarkable for degree of distention. Bowel: The stomach is grossly normal in appearance. Small bowel and colon are normal in caliber and d istribution. The appendix is not visualized; however, no secondary findings of acute appendicitis id entified. Ascites: Absent Lymphadenopathy: No mesenteric, retroperitoneal or periportal lymphadenopathy. Abdominal Wall and Mesentery: Unremarkable. Vasculature: The visualized abdominal aorta is normal in size and caliber. Evaluation of abdominal a nd pelvic vessels is limited due to lack of intravenous contrast. Pelvic Organs: Unremarkable Musculoskeletal: No aggressive focal bony lesions, acute fractures or dislocation. Soft tissues: Unremarkable IMPRESSION: 1. No nephrolithiasis or hydronephrosis 2. Possible 2 mm punctate calculus distal right ureter. Series 6 image 63. Radiation optimization: All CT scans at this facility use at least one of these dose optimization te chniques: automated exposure control mA and/or kV adjustment per patient size (includes targeted exa ms where dose is matched to clinical indication) or iterative reconstruction.
[2024-06-08] MEDS ORDERED: HYDR-4902 PO (17:13)
[2024-06-08 20:20] VITALS: PULSE 72; O2SAT 96
[2024-06-09 08:00] VITALS: TEMP 98.5
[2024-06-09 09:40] VITALS: BP 48/62; PULSE 73; RESP 18; O2SAT 96
--- NOTE | 2024-06-09 10:46 | ECG ---
[facility] Test Date: 2024-06-08 Test Time: 18:11:13 Pat Name: ESSENCE STALEY Department: ED Room: Gender: F [employer] Driver: CARLOS : 1950 Requested By: ARIELLA ARRIAGA Order Number: [id number] Reading MD: Measurements Intervals Rosman Rate: 74 P: -65 ID: [id number] QRS: -33 QRSD: 103 T: 55 QT: 399 QTc: 443 Interpretive Statements Sinus or ectopic atrial rhythm Abnormal R-wave progression, early transition Left ventricular hypertrophy Please click the below link to view image of tracing.
== END 2024-06-09 09:51 | disposition home or self-care (01) ==
LOC: ER 12:16 → EDBD 12:16 → EDSEX 12:16 → EDUNIT# 12:16 → ER 06-09 09:51
DX: R07.89 Other chest pain (principal); N20.1 Calculus of ureter; I10 Essential (primary) hypertension; E11.9 Type 2 diabetes mellitus without complications; F03.93 Unspecified dementia, unspecified severity, with mood disturbance; E78.5 Hyperlipidemia, unspecified; F41.9 Anxiety disorder, unspecified; F31.9 Bipolar disorder, unspecified; I48.91 Unspecified atrial fibrillation; Z79.84 Long term (current) use of oral hypoglycemic drugs; Z90.49 Acquired absence of other specified parts of digestive tract; Z79.899 Other long term (current) drug therapy; Z88.0 Allergy status to penicillin; Z88.5 Allergy status to narcotic agent; Z88.6 Allergy status to analgesic agent
CPT/HCPCS: 36415; 71045; 74176; 80053; 81001; 83690; 84484; 85025; 93005

== ENCOUNTER 2024-06-22 14:36 | Emergency (ER) | payer MEDICARE, MEDICAID ==
[~2024-06-22] VITALS: Ht 162.6 cm; Wt 81.0 kg
[~2024-06-22 14:36] MED LIST changes: +HYDR-4902 PO
[2024-06-22 15:20] LABS: Basophils # (auto) 0 10 ^3/uL (0-0.2); Basophils % (auto) 0.5 % (0.0-2.0); Eosinophils # (auto) 0.1 10 ^3/uL (0-0.8); Eosinophils % (auto) 1.8 % (0.0-7.0); Hematocrit 42.3 % (36.0-46.0); Hemoglobin 14.2 g/dL (12.2-16.2); Lymphocytes # (auto) 2.1 10 ^3/uL (0.4-5.4); Lymphocytes % (auto) 34.4 % (10.0-50.0); Mean Corpuscular Hemoglobin 27.4 pg (28.0-32.0); Mean Corpuscular Hgb Conc. 33.6 g/dL (32.0-36.0); Mean Corpuscular Volume 81.5 fL (80.0-100.0); Monocytes # (auto) 0.7 10 ^3/uL (0-1.3); Monocytes % (auto) 11.1 % (0.0-12.0); Neutrophils # (auto) 3.2 10 ^3/uL (1.6-8.6); Neutrophils % (auto) 52.2 % (37.0-80.0); Nucleated Red Blood Cells % 0.1 %; Platelet Count (auto) 172 10^3/uL (140-450); Red Blood Cells 5.19 10^6/uL (4.0-5.20); Red Cell Distribution Width 15.4 % (11.8-14.3); White Blood Cell 6.1 10^3/uL (4.4-10.8)
--- NOTE | 2024-06-22 15:21 | ED.PDOC ---
GI ASSESSMENT HPI Comments 73 y/o F BIBA with c/o epigastric and left-sided upper and mid abdominal that has been ongoing for several years. Patient is a resident of [facility] and poor historian. Pains worsens with movement, coughing, laughing, and touching area. Visited the ED last month and the month prior for same complaint. Also c/o odorous urine. Last bowel movement was yesterday Denies any recent travel, spoiled food intake, or injuries. Vitals on scene: pulse of 96, blood pressure of 126/82, respiratory rate of 16, SpO2 of 99%RA Vitals upon ED arrival: pulse of 94, blood pressure of 125/81, respiratory rate of 16, SpO2 of 98%RA, temperature of 98.6F Past medical history: paroxysmal AFib on Eliquis, DM II, HLD, HTN, dementia, hypothyroidism, arthritis, scoliosis, bipolar, anxiety Past surgical history: appendectomy, cholecystectomy HPI: Poor Historian. Chronic symptoms for many years. Past Medical History: Past Surgical History: REVIEW OF SYSTEMS: CONSTITUTIONAL: Denies acute: fever, diaphoresis, chills, generalized weakness. HEAD: Denies acute: headache, photophobia Eyes: Denies acute: Double vision, vision loss, eye pain, eye discharge. EARS: Denies acute: tinnitus, hearing loss, ear discharge, ear pain, THROAT: Denies acute: sore throat, swelling, difficulty swallowing , pain with swal lowing, change in voice. NECK: Denies acute: neck pain, neck swelling, stiff neck. HEART: Denies acute : chest pain, palpitations, LUNGS: Denies acute: SOB, wheezing, cough, hemoptysis ABDOMEN: Denies acute: , Nausea, Vomiting, diarrhea, melena , hematemesis, hematochezia SKIN: Denies acute: rash, redness, lesions, itchiness. EXTREMITIES: Denies acute: calf pain, numbness, tingling, weakness, denies pain in extremity. Denies acute: Low back pain. Neuro: Denies acute: focal neurological deficit, motor or sensory focal neurological deficit, tremors, seizure like activity, confusion, dizziness, change in mental status, loss of bowel or bladder function, cauda equina like symptoms. : Denies acute: dysuria, hematuria, increase in urinary frequency. PSYCH: Denies acute: hallucination, suicidal ideation, homicidal ideation. FEMALE: Denies acute: abnormal vaginal bleeding, foul odor, unusual discharge. PHYSICAL EXAM: General: ----no----acute distress, awake and alert. Patient was sitting coloring and drawing on her wheelchair/walker table. Head: normocephalic, atraumatic. Neck: supple, trachea is midline, no swelling. Throat: Normal phonation. Eyes:, no erythema, no purulent discharge, no proptosis, no icterus. Heart: regular rate, regular rhythm, no significant murmur appreciated. Lungs: no apparent respiratory distress, Able to speak in full sentences. No wheezing, no rhonchi, no crackles. No stridors Clear to auscultation bilaterally. Abdomen: Left-sided abdominal tender to palpation, non distended, soft, no guarding, no rebound, + bowel sounds. Neuro: Awake, Alert, oriented to name, self, situation, follows commands GCS=15. Speech is normal. Skin: no petechia, no purpura, no cyanosis, non-pale, not jaundice. Lower extremities: --trace bilateral - Pitting edema no deformity, no focal swelling, no calf TTP. Makes eye contact. moves all four extremities. Face: no apparent facial droop. Left CVA tenderness to percussion ED COURSE: Time Seen by MD: 14:50 Primary Care Provider: no Reviewed Notes: Nurses Notes, Allergies Allergies: Coded Allergies: Codeine (Verified Allergy, Unknown, 04/03/24) NSAIDs (Verified Allergy, Unknown, 04/03/24) Penicillins (Verified Allergy, Unknown, 04/03/24) Home Meds Active Scripts Hydrocodone-Acetaminophen (Hydrocodone Bitartrate/AC 5-325 mg) 1 Tab Tab, 1 TAB PO Q6HP PRN, #10 TAB Prov:ARIELLA EVANS MD 06/08/24 Docusate Sodium (Colace) 100 Mg Cap, 1 CAP PO DAILY PRN for 10 Days, #10 CAP Prov:HIMA CHARLES 05/30/24 Calcium Polycarbophil (Fiber) 625 Mg Tab, 625 MG PO BID for 60 Days, #120 TAB Prov:BUD WALKER MD 05/19/24 Reported Medications Metoprolol Succinate (Metoprolol Succinate Er) 25 Mg Tab, 1 TAB PO DAILY, #30 TAB 5 Refills 04/03/24 Melatonin (MELATONIN) 3 Mg Tab, 3 MG OR HS, TAB 04/03/24 Metformin Hydrochloride (Metformin Hcl) 1,000 Mg Tab, 1 TAB PO BID, #60 TAB 5 Refills 04/03/24 Quetiapine Fumerate (QUETIAPINE FUMARATE) 100 Mg Tab, 100 MG PO QID, TAB 04/03/24 Pantoprazole Sodium Sesquihydr (Protonix) 40 Mg Tab, 40 MG PO DAILY, #30 TAB 04/03/24 Apixaban Base (ELIQUIS) 5 Mg Tab, 5 MG PO BID, TAB 04/03/24 Levothyroxine Sodium (Levothyroxine Sodium) 50 Mcg Tab, 50 MCG PO DAILY, TAB 04/03/24 Divalproex Sodium (Depakote) 250 Mg Tab, 125 MG PO BID, #60 TAB 2 Refills 04/03/24 Information Source: Patient, Emergency Med Personnel Past Medical History PAST MEDICAL HISTORY: AFIB, Dementia, DM, High Lipids, HTN, Thyroid Surgical History: Appendectomy, Cholecystectomy 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 Was a procedure done?: No GI differential Dx Differential Diagnosis: Other (DDX include Diverticulitis, colitis, gastroenteritis, acute abdomen, SBO, enteritis, constipation, volvulus, appendicitis, Gallbladder disease, choledocolithiasis, ascending cholangitis, pancreatitis, intraAbdominal mass/neoplasm, hepatitis, UTI, pylonephritis, kidney stone, aneurysm, dissection, Inflammatory bowel disease, gastroparesis, ischemic bowel, ) X-Ray, Labs, Meds, VS Vital Signs Date Time Temp Pulse Resp B/P (MAP) Pulse Ox O2 Delivery O2 Flow Rate FiO2 06/22/24 19:00 98.7 89 17 130/78 (95) 98 98.7 06/22/24 17:04 98.7 89 16 133/71 (91) 97 98.7 06/22/24 17:04 89 16 97 Room Air 06/22/24 15:52 98.6 94 16 125/81 (96) 98 98.6 Lab Test 06/22/24 18:16 06/22/24 15:54 06/22/24 15:08 06/22/24 15:00 Range/Units Lactic Acid Level 1.9 2.1 *H 0.4-2.0 mmol/L Troponin I High Sensitivity 14 15 15 </=34 ng/L White Blood Count 6.1 4.4-10.8 10^3/uL Red Blood Count 5.19 4.0-5.20 10^6/uL Hemoglobin 14.2 12.2-16.2 g/dL Hematocrit 42.3 36.0-46.0 % Mean Corpuscular Volume 81.5 80.0-100.0 fL Mean Corpuscular Hemoglobin 27.4 L 28.0-32.0 pg Mean Corpuscular Hemoglobin Concent 33.6 32.0-36.0 g/dL Red Cell Distribution Width 15.4 H 11.8-14.3 % Platelet Count 172 140-450 10^3/uL Mean Platelet Volume 6.9 6.9-10.8 fL Neutrophils (%) (Auto) 52.2 37.0-80.0 % Lymphocytes (%) (Auto) 34.4 10.0-50.0 % Monocytes (%) (Auto) 11.1 0.0-12.0 % Eosinophils (%) (Auto) 1.8 0.0-7.0 % Basophils (%) (Auto) 0.5 0.0-2.0 % Neutrophils # (Auto) 3.2 1.6-8.6 10 ^3/uL Lymphocytes # (Auto) 2.1 0.4-5.4 10 ^3/uL Monocytes # (Auto) 0.7 0-1.3 10 ^3/uL Eosinophils # (Auto) 0.1 0-0.8 10 ^3/uL Basophils # (Auto) 0 0-0.2 10 ^3/uL Nucleated Red Blood Cells 0.1 % Sodium Level 142 136-145 mmol/L Potassium Level 3.8 3.5-5.1 mmol/L Chloride Level 107 98-107 mmol/L Carbon Dioxide Level 24 20-31 mmol/L Anion Gap 11 5-15 Blood Urea Nitrogen 11 9-23 mg/dL Creatinine 0.77 0.550-1.02 mg/dL Glomerular Filtration Rate Calc 82 >90 mL/min BUN/Creatinine Ratio 14.3 10.0-20.0 Serum Glucose 132 H 74-106 mg/dL Calcium Level 10.7 H 8.7-10.4 mg/dL Total Bilirubin 0.5 0.2-1.0 mg/dL Aspartate Amino Transferase (AST) 10 L 13-40 U/L Alanine Aminotransferase (ALT) < 9 7-40 U/L Alkaline Phosphatase 99 46-116 U/L B-Type Natriuretic Peptide 313.13 0-100 pg/mL Total Protein 7.3 5.7-8.2 g/dL Albumin 4.7 3.2-4.8 g/dL Lipase 34 12-53 U/L Urine Color Light-yellow Yellow Urine Clarity Clear Clear Urine pH 6.0 5.0-9.0 Urine Specific [place] 1.014 1.001-1.035 Urine Protein 1+ H Negative Urine Ketones Negative Negative Urine Blood Negative Negative /uL Urine Nitrite Negative Negative Urine Bilirubin Negative Negative Urine Urobilinogen Normal Negative mg/dL Urine Leukocyte Esterase Negative Negative /uL Urine RBC <1 0 - 4 /hpf Urine Microscopic WBC 4 0-5 /HPF Urine Squamous Epithelial Cells Few <5 /hpf Urine Bacteria None seen None Seen /hpf Urine Glucose Normal Normal mg/dL Current Medications Medications (Trade) Dose Ordered Sig/Mee Route Start Time Stop Time Status Last Admin Sodium Chloride 1,000 ml @ 1,000 mls/hr Q1H ONCE IV 06/22/24 16:15 06/22/24 17:14 DC 06/22/24 16:52 [place] [id number] Ph: [phone] DIAGNOSTIC IMAGING Diagnostic Imaging Report : [id number] Signed PATIENT: ESSENCE STALEY ACCT: [id number] UNIT: [id number] : 1950 LOC: ER ROOM / BED: / AGE / SEX: 73 / F ADM STATUS: REG ER SERVICE [id number] ORDERING PHYSICIAN: ELADIA GAO DO PROCEDURE(s): ABPL - CT AB PEL WO CON-NO ORAL OR IV REASON: abd pain ORDER NUMBER(s): [id number], ACCESSION NUMBER(s): [id number] Exam: CT CT AB PEL WO CON-NO ORAL OR IV History: abd pain Comparison Study: None available at time of dictation. TECHNIQUE: Multidetector CT of the abdomen was performed from lung bases to pubic symphysis. Imaging was performed without IV contrast. Axial, coronal and sagittal multiplanar reformats were obtained from the axial data set by the technologist. Radiation Dose Information: CT Dose: CTDI volume is 21.62 mGy. Dose-length product is 1153.9 mGy*cm FINDINGS: Evaluation of solid organs is limited due to lack of intravenous contrast use. Findings: Lung Bases: No acute or significant lung base finding. Normal heart size. No pleural or pericardial effusion. Liver: The liver is normal in size. No focal lesions. Gallbladder and Biliary Tree: Unremarkable Spleen: Unremarkable Pancreas: The pancreas is grossly normal in appearance. Adrenal Glands: Unremarkable Kidneys: Kidneys are grossly normal without calculi or hydronephrosis. Bladder: Grossly unremarkable for degree of distention. Bowel: The stomach is grossly normal in appearance. Small bowel and colon are normal in caliber and distribution. The appendix is not visualized; however, no secondary findings of acute appendicitis identified. Ascites: Absent Lymphadenopathy: No mesenteric, retroperitoneal or periportal lymphadenopathy. Abdominal Wall and Mesentery: Unremarkable. Vasculature: The visualized abdominal aorta is normal in size and caliber. Evaluation of abdominal and pelvic vessels is limited due to lack of intravenous contrast. Pelvic Organs: Unremarkable Musculoskeletal: No aggressive focal bony lesions, acute fractures or dislocation. Soft tissues: Unremarkable IMPRESSION: 1. No findings of bowel obstruction 2. Stool throughout the colon 3. Gallbladder has been surgically removed. 4. No nephrolithiasis or hydronephrosis. Radiation optimization: All CT scans at this facility use at least one of these dose optimization techniques: automated exposure control mA and/or kV adjustment per patient size (includes targeted exams where dose is matched to c linical indication) or iterative reconstruction. ATED BY: JERRY JHAVERI Jr., DO DICTATED DATE/TIME: 06/22/241550 SIGNED BY: JERRY JHAVERI Jr., SIGNED DATE/TIME: 06/22/241550 CC: Time of 1ST Reevaluation: 14:50 Reevaluation 1ST: Unchanged Time of 2ND Reevaluation: 18:07 (Patient is in no acute distress) Patient Education/Counseling: Diagnosis, Treatment Family Education/Counseling: No Family Present Departure 1 Departure Time of Disposition: 18:08 Impression: Primary Impression: Chronic pain Additional Impression: Abdominal pain Disposition: 01 HOME / SELF CARE / HOMELESS Condition: Stable Additional Instructions: Additional instructions: You MUST follow-up with your primary care/family doctor in 1 to 2 days. If you are unable to see your primary care/family doctor, please return to our emergency room for re-assessment and re-evaluation in 1 to 2 days. Return to the emergency room here in our facility or to the nearest ER [facility] if your symptoms change or worsen. CONSULTATIONS: you MUST Follow-up for consultation as soon as possible with: -gastroenterology and urology in 1-2 days. Please call for appointment. You MUST call the consultants office yourself to make an appointment. You may need to arrange that through your insurance and/or your primary/family doctor. If you are unable to see the energy consultant in 1 to 2 days, you must return to our emergency room (or any other ER of your choice) for re-assessment and re- evaluation. Adequate fluid hydration. Below is a copy of your radiological report for follow up: [place] [address] Ph: [phone] DIAGNOSTIC IMAGING Diagnostic Imaging Report : [id number] Signed PATIENT: ESSENCE STALEY ACCT: [id number] UNIT: [id number] : 1950 LOC: ER ROOM / BED: / AGE / SEX: 73 / F ADM STATUS: REG ER SERVICE [id number] ORDERING PHYSICIAN: ELADIA GAO DO PROCEDURE(s): ABPL - CT AB PEL WO CON-NO ORAL OR IV REASON: abd pain ORDER NUMBER(s): [id number], ACCESSION NUMBER(s): [id number] Exam: CT CT AB PEL WO CON-NO ORAL OR IV History: abd pain Comparison Study: None available at time of dictation. TECHNIQUE: Multidetector CT of the abdomen was performed from lung bases to pubic symphysis. Imaging was performed without IV contrast. Axial, coronal and sagittal multiplanar reformats were obtained from the axial data set by the technologist. Radiation Dose Information: CT Dose: CTDI volume is 21.62 mGy. Dose-length product is 1153.9 mGy*cm FINDINGS: Evaluation of solid organs is limited due to lack of intravenous contrast use. Findings: Lung Bases: No acute or significant lung base finding. Normal heart size. No pleural or pericardial effusion. Liver: The liver is normal in size. No focal lesions. Gallbladder and Biliary Tree: Unremarkable Spleen: Unremarkable Pancreas: The pancreas is grossly normal in appearance. Adrenal Glands: Unremarkable Kidneys: Kidneys are grossly normal without calculi or hydronephrosis. Bladder: Grossly unremarkable for degree of distention. Bowel: The stomach is grossly normal in appearance. Small bowel and colon are normal in caliber and distribution. The appendix is not visualized; however, no secondary findings of acute appendicitis identified. Ascites: Absent Lymphadenopathy: No mesenteric, retroperitoneal or periportal lymphadenopathy. Abdominal Wall and Mesentery: Unremarkable. Vasculature: The visualized abdominal aorta is normal in size and caliber. Evaluation of abdominal and pelvic vessels is limited due to lack of intravenous contrast. Pelvic Organs: Unremarkable Musculoskeletal: No aggressive focal bony lesions, acute fractures or dislocation. Soft tissues: Unremarkable IMPRESSION: 1. No findings of bowel obstruction 2. Stool throughout the colon 3. Gallbladder has been surgically removed. 4. No nephrolithiasis or hydronephrosis. Radiation optimization: All CT scans at this facility use at least one of these dose optimization techniques: automated exposure control mA and/or kV adjustment per patient size (includes targeted exams where dose is matched to clinical indication) or iterative reconstruction. ATED BY: JERRY JHAVERI Jr., DO DICTATED DATE/TIME: 06/22/24 1551 SIGNED BY: JERRY JHAVERI Jr., SIGNED DATE/TIME: 06/22/24 1551 CC: Discharged With: Self Critical Care Note Critical Care Time?: No I personally scribed for ELADIA GAO DO ([email or web address]) on 06/22/24 at 15:21. Electronically submitted by Jason Perez ([email or web address]). I personally scribed for ELADIA GAO DO ([email or web address]) on 06/22/24 at 16:35. Electronically submitted by Jason Perez ([email or web address]). I personally scribed for ELADIA GAO DO ([email or web address]) on 06/22/24 at 16:35. Electronically submitted by Jason Perez ([email or web address]). ELADIA GAO DO June 22, 2024 15:21
[2024-06-22 15:36] LABS: Albumin 4.7 g/dL (3.2-4.8); Alkaline Phosphatase 99 U/L (46-116); Anion Gap 11 (5-15); BUN/Creatinine Ratio 14.3 (10.0-20.0); Blood Urea Nitrogen 11 mg/dL (9-23); Carbon Dioxide 24 mmol/L (20-31); Chloride 107 mmol/L (98-107); Lipase 34 U/L (12-53); Potassium 3.8 mmol/L (3.5-5.1); Sodium 142 mmol/L (136-145); Total Protein 7.3 g/dL (5.7-8.2)
[2024-06-22 15:37] LABS: Bilirubin, Total 0.5 mg/dL (0.2-1.0)
[2024-06-22 15:39] LABS: Alanine Aminotransferase < 9 U/L (7-40); Aspartate Aminotransferase 10 U/L (13-40); Calcium 10.7 mg/dL (8.7-10.4); Glucose 132 mg/dL (74-106)
--- NOTE | 2024-06-22 15:53 | DVH ---
Exam: CT CT AB PEL WO CON-NO ORAL OR IV History: abd pain Comparison Study: None available at time of dictation. TECHNIQUE: Multidetector CT of the abdomen was performed from lung bases to pubic symphysis. Imaging was performed without IV contrast. Axial, coronal and sagittal multiplanar reformats were obtained fr om the axial data set by the technologist. Radiation Dose Information: CT Dose: CTDI volume is 21.62 mGy. Dose-length product is 1153.9 mGy*cm FINDINGS: Evaluation of solid organs is limited due to lack of intravenous contrast use. Findings: Lung Bases: No acute or significant lung base finding. Normal heart size. No pleural or pericardial effusion. Liver: The liver is normal in size. No focal lesions. Gallbladder and Biliary Tree: Unremarkable Spleen: Unremarkable Pancreas: The pancreas is grossly normal in appearance. Adrenal Glands: Unremarkable Kidneys: Kidneys are grossly normal without calculi or hydronephrosis. Bladder: Grossly unremarkable for degree of distention. Bowel: The stomach is grossly normal in appearance. Small bowel and colon are normal in caliber and d istribution. The appendix is not visualized; however, no secondary findings of acute appendicitis id entified. Ascites: Absent Lymphadenopathy: No mesenteric, retroperitoneal or periportal lymphadenopathy. Abdominal Wall and Mesentery: Unremarkable. Vasculature: The visualized abdominal aorta is normal in size and caliber. Evaluation of abdominal a nd pelvic vessels is limited due to lack of intravenous contrast. Pelvic Organs: Unremarkable Musculoskeletal: No aggressive focal bony lesions, acute fractures or dislocation. Soft tissues: Unremarkable IMPRESSION: 1. No findings of bowel obstruction 2. Stool throughout the colon 3. Gallbladder has been surgically removed. 4. No nephrolithiasis or hydronephrosis. Radiation optimization: All CT scans at this facility use at least one of these dose optimization te chniques: automated exposure control mA and/or kV adjustment per patient size (includes targeted exa ms where dose is matched to clinical indication) or iterative reconstruction.
[2024-06-22 16:04] LABS: Lactic Acid w/Reflex 2.1 mmol/L (0.4-2.0)
[2024-06-22 16:13] LABS: Urine Bacteria None Seen /hpf (None Seen)
[2024-06-22 16:24] LABS: Urine Blood Negative /uL (Negative); Urine Clarity Clear (Clear); Urine Color Light-Yellow (Yellow); Urine Protein, UAD 1+ (Negative); Urine Specific Gravity 1.014 (1.001-1.035); Urine Squamous Epithelial Cell FEW /hpf (<5); Urine Urobilinogen Normal (Negative); Urine WBC 4 /HPF (0-5)
[2024-06-22] MEDS: SODIUM CHLORIDE 0.9% 1,000 ML IV ONE (16:52)
[2024-06-22 19:00] VITALS: BP 130/78; PULSE 89; RESP 17; TEMP 98.7; O2SAT 98
== END 2024-06-22 19:01 | disposition home or self-care (01) ==
LOC: EDUNIT# 14:36 → EDBD 14:36 → ER 14:42
DX: R10.13 Epigastric pain (principal); G89.29 Other chronic pain; I10 Essential (primary) hypertension; E11.9 Type 2 diabetes mellitus without complications; E78.5 Hyperlipidemia, unspecified; F03.90 Unspecified dementia, unspecified severity, without behavioral disturbance, psychotic disturbance, mood disturbance, and anxiety; E03.9 Hypothyroidism, unspecified; F31.9 Bipolar disorder, unspecified; F41.9 Anxiety disorder, unspecified; M19.90 Unspecified osteoarthritis, unspecified site; I48.0 Paroxysmal atrial fibrillation; Z90.49 Acquired absence of other specified parts of digestive tract; Z88.0 Allergy status to penicillin; Z88.5 Allergy status to narcotic agent; Z88.6 Allergy status to analgesic agent; Z79.01 Long term (current) use of anticoagulants; Z79.84 Long term (current) use of oral hypoglycemic drugs; Z79.899 Other long term (current) drug therapy
CPT/HCPCS: 36415; 74176; 80053; 81001; 83605; 83690; 83880; 84484; 85025; 96360; 99284; J7030

== ENCOUNTER 2024-07-01 15:56 | Inpatient (IN) | payer MEDICARE, MEDICAID ==
[~2024-07-01] VITALS: Ht 172.7 cm; Wt 89.2 kg
--- NOTE | 2024-07-01 16:15 | ECG ---
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
--- NOTE | 2024-07-01 17:41 | ED.PDOC ---
GI ASSESSMENT HPI Comments 73 y/o F, BIBA, with PMHx of DM, HLD, Dementia, and A-Fib presents to the ED for CC of abdominal pain. EMS reports, patient is coming from [facility] where she complained of LLQ abdominal pain onset, x2 weeks ago. Patient endorses, associated symptoms of dizziness and dysuria. Patient denies fever, chills, nausea, vomiting, or diarrhea. No other symptoms or modifying factors present at this time. Chief Complaint: Abdominal Pain Time Seen by MD: 17:30 Primary Care Provider: no Reviewed Notes: Nurses Notes, Bowling Ball Grader And Marker Notes, Medications, Allergies Allergies: Coded Allergies: Codeine (Verified Allergy, Unknown, 04/03/24) NSAIDs (Verified Allergy, Unknown, 04/03/24) Penicillins (Verified Allergy, Unknown, 04/03/24) Home Meds Active Scripts Hydrocodone-Acetaminophen (Hydrocodone Bitartrate/AC 5-325 mg) 1 Tab Tab, 1 TAB PO Q6HP PRN, #10 TAB Prov:ARIELLA EVANS MD 06/08/24 Docusate Sodium (Colace) 100 Mg Cap, 1 CAP PO DAILY PRN for 10 Days, #10 CAP Prov:HIMA CHARLES RESDIENT 05/30/24 Calcium Polycarbophil (Fiber) 625 Mg Tab, 625 MG PO BID for 60 Days, #120 TAB Prov:BUD WALKER MD 05/19/24 Reported Medications Metoprolol Succinate (Metoprolol Succinate Er) 25 Mg Tab, 1 TAB PO DAILY, #30 TAB 5 Refills 04/03/24 Melatonin (MELATONIN) 3 Mg Tab, 3 MG OR HS, TAB 04/03/24 Metformin Hydrochloride (Metformin Hcl) 1,000 Mg Tab, 1 TAB PO BID, #60 TAB 5 Refills 04/03/24 Quetiapine Fumerate (QUETIAPINE FUMARATE) 100 Mg Tab, 100 MG PO QID, TAB 04/03/24 Pantoprazole Sodium Sesquihydr (Protonix) 40 Mg Tab, 40 MG PO DAILY, #30 TAB 04/03/24 Apixaban Base (ELIQUIS) 5 Mg Tab, 5 MG PO BID, TAB 04/03/24 Levothyroxine Sodium (Levothyroxine Sodium) 50 Mcg Tab, 50 MCG PO DAILY, TAB 04/03/24 Divalproex Sodium (Depakote) 250 Mg Tab, 125 MG PO BID, #60 TAB 2 Refills 04/03/24 Information Source: Patient, Emergency Med Personnel Mode of Arrival: EMS Timing: Days Duration: Since onset Past Medical History PAST MEDICAL HISTORY: AFIB, Dementia, DM, High Lipids, HTN, Thyroid Surgical History: Appendectomy, Cholecystectomy SET UP [employer]ACHIN[employer] History: Denies all SET [employer] Hx Family History Family History: Unknown Social History Smoker: Non-Smoker Alcohol: Denies ETOH Use Drugs: Denies Drug Use Lives In: Home Constitutional: denies: chills, diaphoresis, fatigue, fever, malaise, sweats, weakness, others EENTM: denies: blurred vision, double vision, ear bleeding, ear discharge, ear drainage, ear pain, ear ringing, eye pain, eye redness, hearing loss, mouth pain, mouth swelling, nasal discharge, nose bleeding, nose congestion, nose pain, photophobia, tearing, throat pain, throat swelling, voice changes, others Respiratory: denies: cough, hemoptysis, orthopnea, SOB at rest, shortness of breath, SOB with excertion, stridor, wheezing, others Cardiovascular: denies: chest pain, dizzy spells, diaphoresis, Dyspnea on exertion, edema, irregular heart beat, left arm pain, lightheadedness, palpitations, PND, syncope, others Gastrointestinal: reports: abdominal pain; denies: abdomen distended, blood streaked bowels, constipated, diarrhea, dysphagia, difficulty swallowing, hematemesis, melena, nausea, poor appetite, poor fluid intake, rectal bleeding, rectal pain, vomiting, others Genitourinary: reports: dysuria; denies: abnormal vagina bleeding, burning, dyspareunia, flank pain, frequency, hematuria, incontinence, pain, , vagina discharge, urgency, others Neurological: reports: dizziness; denies: fainting, headache, left sided numbness, left sided weakness, numbness, paresthesia, pre-existing deficit, right sided numbness, right sided weakness, seizure, speech problems, tingling, tremors, weakness, others Musculoskeletal: denies: back pain, gout, joint pain, joint swelling, muscle pain, muscle stiffness, neck pain, others Integumetry: denies: bruises, change in color, change in hair/nails, dryness, laceration, lesions, lumps, rash, wounds, others Allergic/Immunocompromised: denies: Difficulty Healing, Frequent Infections, Hives, Itching, others Hematologic/Lymphatic: denies: anemia, blood clots, easy bleeding, easy bruising, swollen glands, others Endocrine: denies: excessive hunger, excessive sweating, excessive thirst, excessive urination, flushing, intolerance to cold, intolerance to heat, unexplained weight gain, unexplained weight loss, others Psychiatric: denies: anxiety, bipolar disorder, depression, hopeless, panic disorder, schizophrenia, sleepless, suicidal, others All Other Systems: Reviewed and Negative Physical Exam General Appearance: Moderate Distress HEENT: Normal ENT Inspection, Pharynx Normal, TMs Normal Neck: Full Range of Motion, Non-Tender, Normal, Normal Inspection Respiratory: Chest Non-Tender, Lungs Clear, No Accessory Muscle Use, No Respiratory Distress, Normal Breath Sounds Cardiovascular: No Edema, No JVD, No Murmur, No Gallop, Normal Peripheral Pulses, Regular Rate/Rhythm Breast Exam: Deferred Gastrointestinal: LLQ, LUQ, No Organomegaly, No Pulsatile Mass, Normal Bowel Sounds, Soft, Tenderness Genitalia: Deferred Pelvic: Deferred Rectal: Deferred Extremities: No calf tenderness, Normal capillary refill, Normal inspection, Normal range of motion, Non-tender, No pedal edema Musculoskeletal : Apperance: Normal Neurologic: Alert, survey research center director II-XII nml as Tested, No Motor Deficits, Normal Affect, Normal Mood, No Sensory Deficits Cerebellar Function: Normal Reflexes: Normal Skin: Dry, Normal Color, Warm Lymphatic: No Adenopathy Was a procedure done? Was a procedure done?: No GI differential Dx Differential Diagnosis: Gastritis/PUD, Gastroenteritis, Electrolyte Imbalance, Food Poisoning, Bacterial, Viral X-Ray, Labs, Meds, VS Vital Signs Date Time Temp Pulse Resp B/P (MAP) Pulse Ox O2 Delivery O2 Flow Rate FiO2 07/01/24 18:39 98.7 84 16 138/57 (84) 96 98.7 07/01/24 16:10 77 07/01/24 16:07 98.0 84 14 147/93 (111) 98 98.0 Lab Test 07/01/24 18:30 Range/Units White Blood Count 5.7 4.4-10.8 10^3/uL Red Blood Count 4.86 4.0-5.20 10^6/uL Hemoglobin 13.3 12.2-16.2 g/dL Hematocrit 39.5 36.0-46.0 % Mean Corpuscular Volume 81.4 80.0-100.0 fL Mean Corpuscular Hemoglobin 27.4 L 28.0-32.0 pg Mean Corpuscular Hemoglobin Concent 33.7 32.0-36.0 g/dL Red Cell Distribution Width 15.3 H 11.8-14.3 % Platelet Count 121 L 140-450 10^3/uL Mean Platelet Volume 6.9 6.9-10.8 fL Neutrophils (%) (Auto) 54.9 37.0-80.0 % Lymphocytes (%) (Auto) 30.0 10.0-50.0 % Monocytes (%) (Auto) 12.0 0.0-12.0 % Eosinophils (%) (Auto) 2.3 0.0-7.0 % Basophils (%) (Auto) 0.8 0.0-2.0 % Neutrophils # (Auto) 3.2 1.6-8.6 10 ^3/uL Lymphocytes # (Auto) 1.7 0.4-5.4 10 ^3/uL Monocytes # (Auto) 0.7 0-1.3 10 ^3/uL Eosinophils # (Auto) 0.1 0-0.8 10 ^3/uL Basophils # (Auto) 0 0-0.2 10 ^3/uL Nucleated Red Blood Cells 0.2 % Sodium Level 142 136-145 mmol/L Potassium Level 4.6 3.5-5.1 mmol/L Chloride Level 104 98-107 mmol/L Carbon Dioxide Level 30 20-31 mmol/L Anion Gap 8 5-15 Blood Urea Nitrogen 15 9-23 mg/dL Creatinine 0.92 0.550-1.02 mg/dL Glomerular Filtration Rate Calc 66 >90 mL/min BUN/Creatinine Ratio 16.3 10.0-20.0 Serum Glucose 135 H 74-106 mg/dL Calcium Level 10.5 H 8.7-10.4 mg/dL Lipase Pending Thyroid Stimulating Hormone (TSH) Pending CT ABD PEL: IMPRESSION: 1. Gallbladder is been surgically removed. 2. No CT findings to suggest bowel obstruction. There is stool noted throughout the colon. 3. No nephrolithiasis or hydronephrosis. 4. No significant change from 06/22/2024. The patient's CBC and chemistry panel are within normal limits The glucose is 135 At this time, the patient is being admitted The patient understands and agrees with the management. Images Reviewed?: Images reviewed and evaluated by me Time of 1ST Reevaluation: 18:00 Reevaluation 1ST: Unchanged Patient Education/Counseling: Diagnosis, Treatment, Prognosis Family Education/Counseling: No Family Present Departure 1 Departure Time of Disposition: 21:28 Impression: Primary Impression: Abdominal pain of unknown etiology Disposition: ADMITTED INPATIENT Admit to: Med Surg Condition: Fair Critical Care Note Critical Care Time?: No Stability Stability form required: Yes Unstable for transfer: ED Physician Assesment (Clinical assesment) Heart Score Heart Score: Heart Score Response (Comments) Value History N/A 0 EKG N/A 0 Age N/A 0 Risk Factors N/A 0 Troponin N/A 0 Total 0 I personally scribed for JULISSA JOSEPH MD ([email or web address]) on 07/01/24 at 17:41. Electronically submitted by Amy Schmidt ([employer]). I personally scribed for JULISSA JOSEPH MD ([email or web address]) on 07/01/24 at 17:46. Electronically submitted by Amy Schmidt ([email or web address]). I personally scribed for JULISSA JOSEPH MD ([email or web address]) on 07/01/24 at 18:41. Electronically submitted by Amy Schmidt ([email or web address]). JULISSA JOSEPH MD July 01, 2024 17:41
--- NOTE | 2024-07-01 18:23 | DVH ---
Exam: CT CT AB PEL WO CON-NO ORAL OR IV History: pain Comparison Study: CT CT AB PEL WO CON-NO ORAL OR IV on DOS: 06/22/24, CT CT AB PEL WO CON-NO ORAL OR IV on DOS: 06/08/24, CT CT AB PEL WO CON-NO ORAL OR IV on DOS: 05/28/24 TECHNIQUE: Multidetector CT of the abdomen was performed from lung bases to pubic symphysis. Imaging was performed without IV contrast. Axial, coronal and sagittal multiplanar reformats were obtained fr om the axial data set by the technologist. Radiation Dose Information: CT Dose: CTDI volume is 22.58 mGy. Dose-length product is 1231.82 mGy*cm FINDINGS: Evaluation of solid organs is limited due to lack of intravenous contrast use. Findings: Lung Bases: No acute or significant lung base finding. Normal heart size. No pleural or pericardial effusion. Liver: The liver is normal in size. No focal lesions. Gallbladder and Biliary Tree: Gallbladder has been surgically removed. Spleen: Unremarkable Pancreas: The pancreas is grossly normal in appearance. Adrenal Glands: Unremarkable Kidneys: Kidneys are grossly normal without calculi or hydronephrosis. Bladder: Grossly unremarkable for degree of distention. Bowel: The stomach is grossly normal in appearance. Small bowel and colon are normal in caliber and d istribution. The appendix is not visualized; however, no secondary findings of acute appendicitis id entified. Ascites: Absent Lymphadenopathy: No mesenteric, retroperitoneal or periportal lymphadenopathy. Abdominal Wall and Mesentery: Unremarkable. Vasculature: The visualized abdominal aorta is normal in size and caliber. Evaluation of abdominal a nd pelvic vessels is limited due to lack of intravenous contrast. Pelvic Organs: Unremarkable Musculoskeletal: No aggressive focal bony lesions, acute fractures or dislocation. Soft tissues: Unremarkable IMPRESSION: 1. Gallbladder is been surgically removed. 2. No CT findings to suggest bowel obstruction. There is stool noted throughout the colon. 3. No nephrolithiasis or hydronephrosis. 4. No significant change from 06/22/2024. Radiation optimization: All CT scans at this facility use at least one of these dose optimization te chniques: automated exposure control mA and/or kV adjustment per patient size (includes targeted exa ms where dose is matched to clinical indication) or iterative reconstruction.
[2024-07-01 18:47] LABS: Basophils # (auto) 0 10 ^3/uL (0-0.2); Basophils % (auto) 0.8 % (0.0-2.0); Eosinophils # (auto) 0.1 10 ^3/uL (0-0.8); Eosinophils % (auto) 2.3 % (0.0-7.0); Hematocrit 39.5 % (36.0-46.0); Hemoglobin 13.3 g/dL (12.2-16.2); Lymphocytes # (auto) 1.7 10 ^3/uL (0.4-5.4); Mean Corpuscular Hemoglobin 27.4 pg (28.0-32.0); Mean Corpuscular Hgb Conc. 33.7 g/dL (32.0-36.0); Mean Corpuscular Volume 81.4 fL (80.0-100.0); Monocytes # (auto) 0.7 10 ^3/uL (0-1.3); Neutrophils # (auto) 3.2 10 ^3/uL (1.6-8.6); Neutrophils % (auto) 54.9 % (37.0-80.0); Nucleated Red Blood Cells % 0.2 %; Platelet Count (auto) 121 10^3/uL (140-450); Red Blood Cells 4.86 10^6/uL (4.0-5.20); Red Cell Distribution Width 15.3 % (11.8-14.3); White Blood Cell 5.7 10^3/uL (4.4-10.8)
[2024-07-01 18:58] LABS: Chloride 104 mmol/L (98-107); Potassium 4.6 mmol/L (3.5-5.1); Sodium 142 mmol/L (136-145)
[2024-07-01 18:59] LABS: Anion Gap 8 (5-15); Carbon Dioxide 30 mmol/L (20-31)
[2024-07-01 19:04] LABS: BUN/Creatinine Ratio 16.3 (10.0-20.0); Blood Urea Nitrogen 15 mg/dL (9-23)
[2024-07-01 19:15] LABS: Calcium 10.5 mg/dL (8.7-10.4); Glucose 135 mg/dL (74-106)
[2024-07-01] MEDS: SODIUM CHLORIDE 0.9% 1,000 ML IV ONE (21:15)
[2024-07-01] MEDS ORDERED: DOCUSATE SOD 100 MG CAP PO PRN (21:15)
[2024-07-01] MEDS ORDERED: NITROGLYCERIN 0.4 MG SL TAB SL PRN (21:15)
[2024-07-01] MEDS ORDERED: MORPHINE SULFATE INJ 2 MG/ml SYRG IV PRN (21:15)
[2024-07-01] MEDS ORDERED: METOCLOPRAMIDE HCL 5MG/ml INJ 2ml VIAL IV PRN (22:15)
[2024-07-01] MEDS ORDERED: SODIUM CHLORIDE 0.9% 1,000 ML IV ONE (22:15)
[2024-07-01] MEDS ORDERED: LACTULOSE 20Gm/30ML SOLN PO PRN (22:15)
--- NOTE | 2024-07-01 22:27 | DVHHP2 ---
History of Present Illness History of Present Illness Patient is 73 years old female with a past medical history of atrial fibrillation, diabetes mellitus type 2, hypertension, dementia, bipolar disorder, anxiety, hyperlipidemia, thyroid disease, chronic constipation came with a complaint of abdominal pain. Patient reported she has been having abdo joaquim pain for last 3 days, started in the epigastric region, agonizing pain, 10/10 with the beginning, intermittent, radiating to the back. Patient also reported having dysuria for last couple of days but could not mentioned exact days. Patient reported nausea but no vomiting. On further discussion patient also endorsed chronic constipation, last bowel movement was today but small amount. Patient denied any fever, acute diarrhea. acute joint pain or swelling, chest pain or shortness of breaths. Initial lab work revealed platelet 121, negative for lipase. CT abdomen and pelvis- Gallbladder is been surgically removed. 2. No CT findings to suggest bowel obstruction. There is stool noted throughout the colon.3. No nephrolithiasis or hydronephrosis. Review of Systems Review of Systems Allergy- NSAIDs, penicillin Patient was seen today at the bedside. Cardiovascular- deny acute chest pain or shortness of breath or cough or palpitation Respiratory denies cough or short of breath or wheezing Gastrointestinal- denies any rectal bleeding, Musculoskeletal-denies acute joint swelling or tenderness or redness Neurological- denies acute dysarthria, dysphagia, change in vision Psychiatry- denies depression or SI or HI Skin- denies acute rash or purpura Allergies: Coded Allergies: Codeine (Verified Allergy, Unknown, 04/03/24) NSAIDs (Verified Allergy, Unknown, 04/03/24) Penicillins (Verified Allergy, Unknown, 04/03/24) Medications Current Medications Medications Dose Ordered Sig/Mee Route Start Time Stop Time Status Last Admin Dose Admin Docusate Sodium 100 mg BIDPRN PRN PO 07/01/24 21:15 Morphine Sulfate 2 mg Q4HPRN PRN IV 07/01/24 21:15 Nitroglycerin 0.4 mg Q5MINP PRN SL 07/01/24 21:15 Morphine Sulfate 2 mg Q30M PRN IV 07/01/24 21:15 Pantoprazole Sodium 40 mg DAILY IV 07/02/24 10:00 Lactulose 30 ml BIDPRN PRN PO 07/01/24 22:15 Metoclopramide HCl 5 mg Q6HPRN PRN IV 07/01/24 22:15 Exam Vital Signs Vital Signs Date Time Temp Pulse Resp B/P (MAP) Pulse Ox O2 Delivery O2 Flow Rate FiO2 07/01/24 18:39 98.7 84 16 138/57 (84) 96 98.7 Exam General examination- awake, conversant HEENT- PEERLA, no acute nasal discharge Cardiovascular- S1-S2 audible, rate and rhythm regular, no murmur Respiratory- CTAB, no wheeze or rhonchi Gastrointestinal-epigastric tenderness+, bowel sound+. Nondistended Musculoskeletal-no acute joint swelling or tenderness or redness Lower extremity- no leg edema Neurological- cranial nerves intact, no acute dysarthria or dysphagia Psychiatry- denies depression or SI or HI Skin- no acute rash or purpura Labs/Xrays Labs Test 07/01/24 18:30 Range/Units White Blood Count 5.7 4.4-10.8 10^3/uL Red Blood Count 4.86 4.0-5.20 10^6/uL Hemoglobin 13.3 12.2-16.2 g/dL Hematocrit 39.5 36.0-46.0 % Mean Corpuscular Volume 81.4 80.0-100.0 fL Mean Corpuscular Hemoglobin 27.4 L 28.0-32.0 pg Mean Corpuscular Hemoglobin Concent 33.7 32.0-36.0 g/dL Red Cell Distribution Width 15.3 H 11.8-14.3 % Platelet Count 121 L 140-450 10^3/uL Mean Platelet Volume 6.9 6.9-10.8 fL Neutrophils (%) (Auto) 54.9 37.0-80.0 % Lymphocytes (%) (Auto) 30.0 10.0-50.0 % Monocytes (%) (Auto) 12.0 0.0-12.0 % Eosinophils (%) (Auto) 2.3 0.0-7.0 % Basophils (%) (Auto) 0.8 0.0-2.0 % Neutrophils # (Auto) 3.2 1.6-8.6 10 ^3/uL Lymphocytes # (Auto) 1.7 0.4-5.4 10 ^3/uL Monocytes # (Auto) 0.7 0-1.3 10 ^3/uL Eosinophils # (Auto) 0.1 0-0.8 10 ^3/uL Basophils # (Auto) 0 0-0.2 10 ^3/uL Nucleated Red Blood Cells 0.2 % Sodium Level 142 136-145 mmol/L Potassium Level 4.6 3.5-5.1 mmol/L Chloride Level 104 98-107 mmol/L Carbon Dioxide Level 30 20-31 mmol/L Anion Gap 8 5-15 Blood Urea Nitrogen 15 9-23 mg/dL Creatinine 0.92 0.550-1.02 mg/dL Glomerular Filtration Rate Calc 66 >90 mL/min BUN/Creatinine Ratio 16.3 10.0-20.0 Serum Glucose 135 H 74-106 mg/dL Calcium Level 10.5 H 8.7-10.4 mg/dL Lipase 31 12-53 U/L Thyroid Stimulating Hormone (TSH) 1.19 0.55-4.78 uIU/mL Assessment/Plan Assessment/Plan Assessment and plan Intractable abdominal pain with nausea likely due to gastritis/rule out acute pancreatitis or colitis Suspected acute gastritis Suspected UTI Chronic constipation-likely from opiate use LISSET likely due to VMN atrial fibrillation, diabetes mellitus type 2, hypertension, dementia, bipolar disorder, anxiety, hyperlipidemia, thyroid disease, Plan Continue pantoprazole as prescribed Ordered ceftriaxone assuming UTI Laxative as prescribed Ordered IV fluid as prescribed DVT prophylaxis Continue pain medication as prescribed Resumed home medication Levothyroxine, Eliquis, the valproic acid Plan Is to avoid opiate Plan is to check on EKG if any prolonged QT interval before restarting quetiapine Pending UA, CS Goals of care, Code status ; discussed with >15 minutes PUD prophylaxis: Pantoprazole DVT prophylaxis: Lovenox Plan discussed with Dr. Farias , nursing staff, Total time spent on patient evaluation, chart review, assessment and plan, discussion discussion >35 minutes Plan discussed with: Patient, Other (RN) My Orders Orders - MARISA WILKINSON RESIDENT Procedure Category Date Status Time Admit ADMIT 07/01/24 Transmitted 21:09 Docusate Sodium PHA 07/01/24 In Process Capsule (Colace 21:15 Complete Blood Count LAB 07/02/24 Verified 04:00 Comprehensive LAB 07/02/24 Verified Metabolic Panel 04:00 Npo (Nothing By DIET 07/02/24 Transmitted Mouth) Diet Breakfast Morphine Sulfate PHA 07/01/24 In Process Injection 21:15 Nitroglycerin PHA 07/01/24 In Process Sublingual (Ntrostat 21:15 Morphine Sulfate PHA 07/01/24 In Process Injection 21:15 Oxygen By Nasal RT 07/01/24 Transmitted Cannula 21:09 Stat Ekg For Chest MEET 07/01/24 In Process Pain 21:09 Notify Of Changes MEET 07/01/24 In Process From Base 21:09 Battery Loader For MEET 07/01/24 In Process 24 Hours 21:09 Emergency Dysrhythmia MEET 07/01/24 In Process Protocol 21:09 Rhythm Strips Once MEET 07/01/24 In Process Every Shift 21:09 Urine Bacterial DRAKE 07/01/24 Logged Culture 21:11 Lactic Acid W/ Reflex LAB 07/01/24 Logged Order 21:13 Covid19 Antigen Katya LAB 07/01/24 Logged Rapid Influenza A&B LAB 07/01/24 Logged 21:13 Sodium Chloride 0.9% PHA 07/01/24 In Process 21:15 Pantoprazole PHA 07/02/24 In Process (Protonix) 10:00 Lactulose Oral PHA 07/01/24 In Process 22:15 Metoclopramide PHA 07/01/24 In Process Injection (Reglan 22:15 Sodium Chloride 0.9% PHA 07/01/24 In Process 22:15 Date of Service: July 01, 2024 Billing Provider: SIVA FARIAS MD Common Visit Codes: [id number] INP/OBS CARE (HIGH) Secondary Visit Codes: [id number] CARE PLAN 30 MINUTES MARISA WILKINSON RESIDENT July 01, 2024 22:27
[2024-07-01] MEDS: SODIUM CHLORIDE 0.9% 1,000 ML IV SCH (22:30)
[2024-07-02] MEDS: POLYETHYLENE GLYCOL 17 GM PWDR PO ONE (03:34)
[2024-07-02] MEDS: PANTOPRAZOLE 40 MG/10 ML VIAL INJ IV ONE (03:34)
[2024-07-02] MEDS: LACTULOSE 20Gm/30ML SOLN PO ONE (03:35)
[2024-07-02] MEDS ORDERED: QUEtiapine FUMARATE 100 MG TAB PO SCH (06:00)
[2024-07-02 06:37] LABS: Basophils # (auto) 0 10 ^3/uL (0-0.2); Basophils % (auto) 0.6 % (0.0-2.0); Eosinophils # (auto) 0.1 10 ^3/uL (0-0.8); Eosinophils % (auto) 2.4 % (0.0-7.0); Hematocrit 42.4 % (36.0-46.0); Hemoglobin 14.3 g/dL (12.2-16.2); Lymphocytes # (auto) 1.3 10 ^3/uL (0.4-5.4); Mean Corpuscular Hemoglobin 27.4 pg (28.0-32.0); Mean Corpuscular Hgb Conc. 33.8 g/dL (32.0-36.0); Mean Corpuscular Volume 81.1 fL (80.0-100.0); Monocytes # (auto) 0.6 10 ^3/uL (0-1.3); Monocytes % (auto) 12.2 % (0.0-12.0); Neutrophils # (auto) 2.7 10 ^3/uL (1.6-8.6); Neutrophils % (auto) 56.8 % (37.0-80.0); Nucleated Red Blood Cells % 0.4 %; Platelet Count (auto) 135 10^3/uL (140-450); Red Blood Cells 5.23 10^6/uL (4.0-5.20); Red Cell Distribution Width 15.4 % (11.8-14.3); White Blood Cell 4.8 10^3/uL (4.4-10.8)
[2024-07-02] MEDS: cefTRIAXone 1GM/50ML D5W 50 ML IV ONE (06:43)
[2024-07-02] MEDS: LEVOTHYROXINE SODIUM 50 MCG TAB PO SCH (07:00)
[2024-07-02 07:02] LABS: Alanine Aminotransferase 10 U/L (7-40); Alkaline Phosphatase 103 U/L (46-116); Anion Gap 11 (5-15); BUN/Creatinine Ratio 13.5 (10.0-20.0); Blood Urea Nitrogen 14 mg/dL (9-23); Carbon Dioxide 27 mmol/L (20-31); Chloride 103 mmol/L (98-107); Potassium 3.8 mmol/L (3.5-5.1); Sodium 141 mmol/L (136-145); Total Protein 7.8 g/dL (5.7-8.2)
[2024-07-02 07:03] LABS: Bilirubin, Total 0.6 mg/dL (0.2-1.0)
[2024-07-02 07:07] LABS: Aspartate Aminotransferase 9 U/L (13-40); Calcium 10.7 mg/dL (8.7-10.4); Glucose 180 mg/dL (74-106)
[2024-07-02] MEDS: QUEtiapine FUMARATE 100 MG TAB PO ONE (09:09)
[2024-07-02] MEDS ORDERED: MAALOX PLUS or MAALOX 30 ML PO PRN (09:45)
[2024-07-02] MEDS: PANTOPRAZOLE 40 MG/10 ML VIAL INJ IV SCH (09:47)
[2024-07-02] MEDS: METOPROLOL SUCCINATE XL 50 MG TAB PO SCH (09:48)
[2024-07-02] MEDS: MORPHINE SULFATE INJ 2 MG/ml SYRG IV PRN (09:48)
[2024-07-02] MEDS: APIXABAN 5 MG TAB PO SCH (09:48)
[2024-07-02] MEDS: VALPROIC ACID 250 MG/5 ML ORAL SOLN PO SCH (10:00)
--- NOTE | 2024-07-02 10:00 | DVHPNRES ---
Progress Note Date Seen: July 02, 2024 Resident Creating Document: ABI OMER RESIDENT Has the PT tested + for MRSA If YES, has PT been informed?: No Medical Necessity Reason Pt with a Central, PICC or Fol: No Subjective Review of Systems Xochitl Lane is a 73-year-old female with a PMH of AFib, type 2 DM, HTN, dementia, bipolar, anxiety, HLD, thyroid disorder, presented to the ED with the chief complaints of abdominal pain. Patient is poor historian, reported she had mechanical fall 2 weeks ago and hit her head but did not went to hospital, patient [facility], reported she has been having abdominal pain for last 3 days, started in the epigastric region, agonizing pain, 10/10 with the beginning, intermittent, radiating to the back. Patient also reported having dysuria for last couple of days but could not mentioned exact days. Patient reported nausea but no vomiting. On further discussion patient also endorsed chronic constipation, last bowel movement was today but small amount. Patient denied any fever, acute diarrhea. acute joint pain or swelling, chest pain or shortness of breaths. Patient seen and examined at the bedside. Patient currently reporting abdominal pain but no nausea or vomiting. No new complaints. Patient was started Carafate, GI cocktail. Objective vital signs Vital Sign Date Time Temp Pulse Resp B/P (MAP) Pulse Ox O2 Delivery O2 Flow Rate FiO2 07/02/24 08:34 79 07/02/24 03:50 98.6 16 151/86 (107) 96 98.6 medications Current Medications Medications Dose Ordered Sig/Mee Route Start Time Stop Time Status Last Admin Dose Admin Docusate Sodium 100 mg BIDPRN PRN PO 07/01/24 21:15 Morphine Sulfate 2 mg Q4HPRN PRN IV 07/01/24 21:15 Nitroglycerin 0.4 mg Q5MINP PRN SL 07/01/24 21:15 Morphine Sulfate 2 mg Q30M PRN IV 07/01/24 21:15 Pantoprazole Sodium 40 mg DAILY IV 07/02/24 10:00 Lactulose 30 ml BIDPRN PRN PO 07/01/24 22:15 Metoclopramide HCl 5 mg Q6HPRN PRN IV 07/01/24 22:15 Sodium Chloride 1,000 ml @ 110 mls/hr Q9H6M IV 07/01/24 22:30 07/02/24 07:36 110 MLS/HR Ceftriaxone Sodium 50 ml @ 100 mls/hr DAILY@0600 IV 07/03/24 06:00 Apixaban 5 mg BID PO 07/02/24 10:00 Valproate Sodium 125 mg BID PO 07/02/24 10:00 Levothyroxine Sodium 50 mcg QAM PO 07/02/24 07:00 Quetiapine Fumarate 100 mg QID PO 07/02/24 06:00 Hold Metoprolol Succinate 25 mg DAILY PO 07/02/24 10:00 Examination Pt is lying on bed General Appearance: Alert, Oriented X3, Cooperative, Not in acute distress HEENT: Atraumatic, Mucous membranes moist/pink Respiratory: Clear to auscultation, Normal air movement, No added sounds Cardiovascular: Regular rate, Normal S1, Normal S2, No murmurs Abdominal: Generalized abdominal tenderness Extremities: No edema, Normal pulses, No tenderness/swelling Skin: No Significant rash, except past surgical scars Neuro: Normal speech, sensorimotor deficits none Psych/Mental Status: Mental status NL, Mood NL Nurse was there as kenyattaerone during examination laboratory and microbiology Laboratory Tests 07/02/24 05:56 Test 07/02/24 05:56 Range/Units Serum Glucose 180 H 74-106 mg/dL Labs and/or images reviewed: Labs reviewed by me, Image(s) reviewed by me Problem List/Assessment/Plan Problem List/Assessment/Plan # Intractable abdominal pain # Acute Gastritis # Dehydration - Protonix, Carafate, GI cocktail, - CT abdominal pelvis showed no acute changes # Mechnical fall # ? Dementia - Head CT ordered, pending # acute complicated UTI -Rocephin - pending urine since # AFib with secondary hypercoagulable state # HTN # HLD - rate control with metoprolol - Eliquis 5 mg # Constipation - lactulose 30 mL # R/o LISSET # Hypothyroidism - levothyroxine # Bipolar/anxiety? - Seroquel Protonix Eliquis Cleqar liuquids for now Goals of care discussed with the patient for more than 29 minutes: Full code status Case discussed with Dr. Wood, patient and nurse Plan discussed with: Patient My Orders My Orders Orders - ABI OMER RESIDENT Procedure Category Date Status Time Quetiapine Fumarate PHA 07/02/24 In Process Tablet (Seroquel Tab 22:00 Sucralfate Susp PHA 07/02/24 In Process (Carafate Susp) 11:30 Alum & Mag PHA 07/02/24 In Process Hydrox-Simethicone 09:[address] 07/02/24 Logged 09:39 Free T4 (Free LAB 07/02/24 In Process Thyroxine) 09:49 T3 Total LAB 07/02/24 In Process 09:49 Clear Liq Diet DIET 07/02/24 Verified Lunch Date of Service: July 02, 2024 Billing Provider: HEATHER BLACKWELL MD Common Visit Codes: [id number] INP/OBS CARE(HIGH) ABI OMER RESIDENT July 02, 2024 10:00 HEATHER BLACKWELL MD July 07, 2024 02:05
[2024-07-02 10:28] LABS: COVID19 ANTIGEN SOFIA FIA NEGATIVE (NEGATIVE); Rapid Influenza A Negative (Negative); Rapid Influenza B Negative (Negative)
[2024-07-02 10:36] LABS: Free T4 (Free Thyroxine) 1.06 ng/dL (0.89-1.76); T3 Total 0.8 ng/mL (0.60-1.81)
--- NOTE | 2024-07-02 10:36 | DVH ---
EXAM: CT HEAD WITHOUT CONTRAST HISTORY: History of mechanical fall COMPARISON: CT HEAD WITHOUT CONTRAST on DOS: 05/28/24 TECHNIQUE: Noncontrast axial CT images of the head were performed. Sagittal and coronal reformatted i mages were obtained. This CT exam was performed using 1 or more of the following dose reduction techn iques: Automated exposure control, adjustment of the mA and/or kv according to patient size, or the u se of iterative reconstruction techniques. Radiation Dose: CTDI volume is 53.99 mGy. Dose-length product is 971.88 mGy*cm FINDINGS: No intracranial hemorrhage, mass, midline shift, hydrocephalus, or evidence of acute large vessel inf arct. There are old lacunar infarcts of the left basal ganglia and bilateral external capsules. Ther e are atherosclerotic calcifications of the cavernous ICAs and terminal left vertebral artery. There is mucosal thickening of the bilateral maxillary, ethmoid, and sphenoid sinuses. The bilateral mastoi d air cells and middle ear spaces are clear. No cranial fracture or scalp edema. There is hyperostosi s frontalis interna. IMPRESSION: 1. Chronic ischemic changes without evidence of acute intracranial process. 2. Paranasal sinus disease.
[2024-07-02] MEDS: LACTULOSE 20Gm/30ML SOLN PO SCH (11:57)
[2024-07-02] MEDS: SUCRALFATE 1 GM/10 ML ORAL SUSP GT SCH (12:00)
[2024-07-02 12:28] LABS: Urine Bacteria None Seen /hpf (None Seen)
[2024-07-02 12:36] LABS: Urine Blood Negative /uL (Negative); Urine Clarity Clear (Clear); Urine Color Light-Yellow (Yellow); Urine Protein, UAD Negative (Negative); Urine Specific Gravity 1.008 (1.001-1.035); Urine Squamous Epithelial Cell FEW /hpf (<5); Urine Urobilinogen Normal (Negative); Urine WBC 1 /HPF (0-5)
--- NOTE | 2024-07-02 18:51 | ECG ---
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
[2024-07-02 21:49] VITALS: BP 159/84; PULSE 72; RESP 18; TEMP 98.1; O2SAT 97
[2024-07-02] MEDS: QUEtiapine FUMARATE 100 MG TAB PO SCH (22:00)
[2024-07-02 22:01] VITALS: BP 159/84; PULSE 72; RESP 18; TEMP 98.1; O2SAT 97
[2024-07-03] VITALS (14 sets, daily range): BP systolic 145–180; BP diastolic 68–87; PULSE 63–90; RESP 16–20; TEMP 97.5–98.2; O2SAT 94–100
[2024-07-03] MEDS: LEVOTHYROXINE SODIUM 25 MCG TAB PO SCH (04:59)
[2024-07-03] MEDS: cefTRIAXone 1GM/50ML D5W 50 ML IV SCH (05:07)
[2024-07-03] MEDS: cloNIDine HCL 0.1 MG TAB PO ONE (05:42)
[2024-07-03 10:13] LABS: Basophils # (auto) 0 10 ^3/uL (0-0.2); Basophils % (auto) 0.4 % (0.0-2.0); Eosinophils # (auto) 0.2 10 ^3/uL (0-0.8); Eosinophils % (auto) 3.3 % (0.0-7.0); Hematocrit 39.3 % (36.0-46.0); Hemoglobin 13.2 g/dL (12.2-16.2); Lymphocytes # (auto) 1.5 10 ^3/uL (0.4-5.4); Lymphocytes % (auto) 31.6 % (10.0-50.0); Mean Corpuscular Hemoglobin 27.4 pg (28.0-32.0); Mean Corpuscular Hgb Conc. 33.6 g/dL (32.0-36.0); Mean Corpuscular Volume 81.5 fL (80.0-100.0); Monocytes # (auto) 0.5 10 ^3/uL (0-1.3); Monocytes % (auto) 11.3 % (0.0-12.0); Neutrophils # (auto) 2.6 10 ^3/uL (1.6-8.6); Neutrophils % (auto) 53.4 % (37.0-80.0); Nucleated Red Blood Cells % 0.3 %; Platelet Count (auto) 126 10^3/uL (140-450); Red Blood Cells 4.82 10^6/uL (4.0-5.20); White Blood Cell 4.8 10^3/uL (4.4-10.8)
[2024-07-03] MEDS: IPRATROPIUM BROM 0.5 MG/2.5ML INH SOL NEB PRN (10:30)
[2024-07-03] MEDS: LEVALBUTEROL HCL 1.25 MG/3 ML NEB NEB SCH (10:31)
[2024-07-03 10:37] LABS: Alanine Aminotransferase 12 U/L (7-40); Albumin 4.2 g/dL (3.2-4.8); Alkaline Phosphatase 82 U/L (46-116); Anion Gap 8 (5-15); BUN/Creatinine Ratio 11.5 (10.0-20.0); Blood Urea Nitrogen 9 mg/dL (9-23); Calcium 10.4 mg/dL (8.7-10.4); Carbon Dioxide 27 mmol/L (20-31); Chloride 103 mmol/L (98-107); Magnesium 1.9 mg/dL (1.6-2.6); Potassium 4.2 mmol/L (3.5-5.1); Sodium 138 mmol/L (136-145); Total Protein 6.5 g/dL (5.7-8.2)
[2024-07-03 10:38] LABS: Bilirubin, Total 0.6 mg/dL (0.2-1.0)
[2024-07-03 10:43] LABS: Aspartate Aminotransferase 9 U/L (13-40); Glucose 195 mg/dL (74-106)
--- NOTE | 2024-07-03 10:55 | DVH ---
EXAM: XY CHEST XRAY 1 VIEW Indication: SOB Technique: Single frontal view of the chest was obtained Comparison: XY CHEST PORTABLE on DOS: 06/08/24, XY CHEST XRAY 1 VIEW on DOS: 05/28/24, XY CHEST XRAY 1 V IEW on DOS: 05/28/24, XY CHEST PORTABLE on DOS: 04/03/24 FINDINGS: Lines and Tubes: None Lungs: No focal consolidation. Pleura: No effusion. No pneumothorax. Cardiomediastinal contours: Unremarkable. Atherosclerotic vascular calcifications of the thoracic ao rta are noted. Bones: No acute osseous abnormality. IMPRESSION: No acute cardiopulmonary disease.
--- NOTE | 2024-07-03 14:41 | DVHPNRES ---
Progress Note Date Seen: July 03, 2024 Resident Creating Document: ABI OMER RESIDENT Has the PT tested + for MRSA If YES, has PT been informed?: No Medical Necessity Reason Pt with a Central, PICC or Fol: No Subjective Review of Systems Patient seen and examined at the bedside. Patient is lipid-lowering have abdominal pain. Patient was advised to her enema but patient refused so given lactulose 30 mL p.o. t.i.d. Objective vital signs Vital Sign Date Time Temp Pulse Resp B/P (MAP) Pulse Ox O2 Delivery O2 Flow Rate FiO2 07/03/24 13:00 97.6 64 17 163/79 (107) 98 97.6 07/03/24 11:04 0.0 21 07/03/24 10:31 Room Air Total Intake and Output 07/02/24 07/02/24 07/03/24 15:00 23:00 07:00 Intake Total 710 ml 330 ml 250 ml Balance 710 ml 330 ml 250 ml medications Current Medications Medications Dose Ordered Sig/Mee Route Start Time Stop Time Status Last Admin Dose Admin Docusate Sodium 100 mg BIDPRN PRN PO 07/01/24 21:15 Morphine Sulfate 2 mg Q4HPRN PRN IV 07/01/24 21:15 Nitroglycerin 0.4 mg Q5MINP PRN SL 07/01/24 21:15 Morphine Sulfate 2 mg Q30M PRN IV 07/01/24 21:15 Pantoprazole Sodium 40 mg DAILY IV 07/02/24 10:00 07/03/24 10:17 40 MG Metoclopramide HCl 5 mg Q6HPRN PRN IV 07/01/24 22:15 Sodium Chloride 1,000 ml @ 110 mls/hr Q9H6M IV 07/01/24 22:30 07/02/24 16:42 110 MLS/HR Ceftriaxone Sodium 50 ml @ 100 mls/hr DAILY@0600 IV 07/03/24 06:00 Apixaban 5 mg BID PO 07/02/24 10:00 07/03/24 10:17 5 MG Valproate Sodium 125 mg BID PO 07/02/24 10:00 07/03/24 10:17 125 MG Metoprolol Succinate 25 mg DAILY PO 07/02/24 10:00 07/03/24 10:25 25 MG Quetiapine Fumarate 100 mg BID PO 07/02/24 22:00 07/03/24 10:18 100 MG Sucralfate 1 gm TID@0600,1130,2200 GT 07/02/24 11:30 07/03/24 13:29 1 GM Al Hydrox/Mg Hydrox/Simethicone 15 ml Q8HP PRN PO 07/02/24 09:45 Levothyroxine Sodium 75 mcg QAM@0600 PO 07/03/24 06:00 07/03/24 04:59 75 MCG Hydralazine HCl 10 mg Q6HP PRN IV 07/03/24 06:45 Levalbuterol HCl 0.625 mg Q6HR NEB 07/03/24 12:00 07/03/24 10:31 0.625 MG Ipratropium [place] 0.5 mg Q6HPRN PRN NEB 07/03/24 09:30 07/03/24 10:30 0.5 MG Lactulose 30 ml TID PO 07/03/24 14:00 Mupirocin 1 applic BID EACHNOSTRI 07/03/24 22:00 07/08/24 21:59 Examination Pt is lying on bed General Appearance: Alert, Oriented X3, Cooperative, Not in acute distress HEENT: Atraumatic, Mucous membranes moist/pink Respiratory: Clear to auscultation, Normal air movement, No added sounds Cardiovascular: Regular rate, Normal S1, Normal S2, No murmurs Abdominal: Generalized abdominal tenderness Extremities: No edema, Normal pulses, No tenderness/swelling Skin: No Significant rash, except past surgical scars Neuro: Normal speech, sensorimotor deficits none Psych/Mental Status: Mental status NL, Mood NL [facility] laboratory and microbiology Laboratory Tests 07/03/24 09:49 Test 07/03/24 09:49 Range/Units Serum Glucose 195 H 74-106 mg/dL Microbiology Date/Time Source Procedure Growth Status 07/02/24 23:20 Nose MRSA Screen - Final Methicillin Resistant S.aureus Complete 07/02/24 12:20 Voided Urine Urine Culture - Preliminary Resulted Labs and/or images reviewed: Labs reviewed by me, Image(s) reviewed by me Problem List/Assessment/Plan Problem List/Assessment/Plan # Intractable abdominal pain # Acute Gastritis # Dehydration - Protonix, Carafate, GI cocktail, - CT abdominal pelvis showed no acute changes # Mechnical fall # ? Dementia - Head CT ordered, pending # acute complicated UTI - Rocephin # AFib with secondary hypercoagulable state # HTN # HLD - rate control with metoprolol - Eliquis 5 mg # Constipation - lactulose 30 mL t.i.d. - refusing enema # R/o LISSET # Hypothyroidism - levothyroxine # Bipolar/anxiety? - Seroquel Protonix Eliquis Cleqar liuquids for now Goals of care discussed with the patient for more than 29 minutes: Full code status Case discussed with Dr. Wood, patient and nurse Plan discussed with: Patient My Orders My Orders Orders - ABI OMER Procedure Category Date Status Time Hydralazine Injection PHA 07/03/24 In Process (Apresoline Inject 06:45 Chest Xray 1 View XY 07/03/24 Resulted 09:28 Levalbuterol Hcl PHA 07/03/24 In Process (Xopenex Medneb) 12:00 Ipratropium Medneb PHA 07/03/24 In Process (Atrovent Medneb) 09:30 Lactulose Oral PHA 07/03/24 In Process 14:00 Mupirocin 2% Oint PHA 07/03/24 In Process Mrsa Nares (Bactroban 22:00 Date of Service: July 03, 2024 Billing Provider: HEATHER BLACKWELL MD Common Visit Codes: [id number] INP/OBS CARE(HIGH) ABI OMER RESIDENT July 03, 2024 14:41 HEATHER BLACKWELL MD July 07, 2024 03:09
[2024-07-03] MEDS: FLEET ENEMA(ADULT) 135 ML PR ONE (14:50)
[2024-07-03] MEDS: LACTULOSE 20Gm/30ML SOLN PO SCH (14:50)
[2024-07-03] MEDS: hydrALAZINE HCL 20 MG/ML VL IV PRN (17:03)
[2024-07-03] MEDS: MUPIROCIN 2% OINT 15gm or 22gm FOR MRSA NARES EACHNOSTRI SCH (21:50)
[2024-07-04] VITALS (14 sets, daily range): BP systolic 149–177; BP diastolic 78–86; PULSE 84–96; RESP 16–20; TEMP 97.5–98.2; O2SAT 96–100
[2024-07-04] MEDS: NIFEdipine ER 30 MG TAB PO ONE (01:59)
[2024-07-04 06:45] LABS: Basophils # (auto) 0 10 ^3/uL (0-0.2); Basophils % (auto) 0.6 % (0.0-2.0); Eosinophils # (auto) 0.1 10 ^3/uL (0-0.8); Eosinophils % (auto) 0.9 % (0.0-7.0); Hemoglobin 15.7 g/dL (12.2-16.2); Lymphocytes # (auto) 1.6 10 ^3/uL (0.4-5.4); Lymphocytes % (auto) 26.7 % (10.0-50.0); Mean Corpuscular Hemoglobin 27.7 pg (28.0-32.0); Mean Corpuscular Hgb Conc. 34.1 g/dL (32.0-36.0); Mean Corpuscular Volume 81.2 fL (80.0-100.0); Monocytes # (auto) 0.5 10 ^3/uL (0-1.3); Monocytes % (auto) 8.9 % (0.0-12.0); Neutrophils # (auto) 3.8 10 ^3/uL (1.6-8.6); Neutrophils % (auto) 62.9 % (37.0-80.0); Nucleated Red Blood Cells % 0.1 %; Platelet Count (auto) 147 10^3/uL (140-450); Red Blood Cells 5.66 10^6/uL (4.0-5.20); Red Cell Distribution Width 15.1 % (11.8-14.3)
[2024-07-04 07:05] LABS: Chloride 103 mmol/L (98-107); Sodium 139 mmol/L (136-145)
[2024-07-04 07:06] LABS: Anion Gap 10 (5-15); Carbon Dioxide 26 mmol/L (20-31)
[2024-07-04 07:10] LABS: Calcium 10.4 mg/dL (8.7-10.4)
[2024-07-04 07:11] LABS: BUN/Creatinine Ratio 8.2 (10.0-20.0)
[2024-07-04 07:14] LABS: Blood Urea Nitrogen 6 mg/dL (9-23); Glucose 148 mg/dL (74-106)
[2024-07-04] MEDS ORDERED: DOCU-265 PO (11:10)
[2024-07-04] MEDS ORDERED: POLY335015 PO (11:10)
[2024-07-04] MEDS ORDERED: LEVO25TA6 PO (11:10)
[2024-07-04] MEDS ORDERED: SUCR1SUS26 PO (11:10)
--- NOTE | 2024-07-04 11:20 | DVHDSRES ---
Discharge Summary Date of Admission Resident Creating Document: ABI OMER RESIDENT July 01, 2024 at 21:09 Date of Discharge: July 04, 2024 Admitting Diagnosis Abdominal pain Labs/Diagnostic Data: Laboratory Results Test 07/04/24 06:24 07/03/24 09:49 07/02/24 12:20 07/02/24 09:23 White Blood Count 6.0 10^3/uL (4.4-10.8) Red Blood Count 5.66 10^6/uL (4.0-5.20) Hemoglobin 15.7 g/dL (12.2-16.2) Hematocrit 46.0 % (36.0-46.0) Mean Corpuscular Volume 81.2 fL (80.0-100.0) Mean Corpuscular Hemoglobin 27.7 pg (28.0-32.0) Mean Corpuscular Hemoglobin Concent 34.1 g/dL (32.0-36.0) Red Cell Distribution Width 15.1 % (11.8-14.3) Platelet Count 147 10^3/uL (140-450) Mean Platelet Volume 7.0 fL (6.9-10.8) Neutrophils (%) (Auto) 62.9 % (37.0-80.0) Lymphocytes (%) (Auto) 26.7 % (10.0-50.0) Monocytes (%) (Auto) 8.9 % (0.0-12.0) Eosinophils (%) (Auto) 0.9 % (0.0-7.0) Basophils (%) (Auto) 0.6 % (0.0-2.0) Neutrophils # (Auto) 3.8 10 ^3/uL (1.6-8.6) Lymphocytes # (Auto) 1.6 10 ^3/uL (0.4-5.4) Monocytes # (Auto) 0.5 10 ^3/uL (0-1.3) Eosinophils # (Auto) 0.1 10 ^3/uL (0-0.8) Basophils # (Auto) 0 10 ^3/uL (0-0.2) Nucleated Red Blood Cells 0.1 % Sodium Level 139 mmol/L (136-145) Potassium Level 4.0 mmol/L (3.5-5.1) Chloride Level 103 mmol/L (98-107) Carbon Dioxide Level 26 mmol/L (20-31) Anion Gap 10 (5-15) Blood Urea Nitrogen 6 mg/dL (9-23) Creatinine 0.73 mg/dL (0.550-1.02) Glomerular Filtration Rate Calc 87 mL/min (>90) BUN/Creatinine Ratio 8.2 (10.0-20.0) Serum Glucose 148 mg/dL (74-106) Calcium Level 10.4 mg/dL (8.7-10.4) Magnesium Level 1.9 mg/dL (1.6-2.6) Total Bilirubin 0.6 mg/dL (0.2-1.0) Aspartate Amino Transferase (AST) 9 U/L (13-40) Alanine Aminotransferase (ALT) 12 U/L (7-40) Alkaline Phosphatase 82 U/L (46-116) Total Protein 6.5 g/dL (5.7-8.2) Albumin 4.2 g/dL (3.2-4.8) Urine Color Light-yellow (Yellow) Urine Clarity Clear (Clear) Urine pH 7.0 (5.0-9.0) Urine Specific Fowler 1.008 (1.001-1.035) Urine Protein Negative (Negative) Urine Ketones Negative (Negative) Urine Blood Negative /uL (Negative) Urine Nitrite Negative (Negative) Urine Bilirubin Negative (Negative) Urine Urobilinogen Normal mg/dL (Negative) Urine Leukocyte Esterase Negative /uL (Negative) Urine RBC 1 /hpf (0 - 4) Urine Microscopic WBC 1 /HPF (0-5) Urine Squamous Epithelial Cells Few /hpf (<5) Urine Bacteria None seen /hpf (None Seen) Urine Glucose Normal mg/dL (Normal) Influenza Type A Antigen Negative (Negative) Influenza Type B Antigen Negative (Negative) SARS-CoV-2 Antigen (Rapid) Negative (NEGATIVE) Test 07/02/24 05:56 07/01/24 23:30 07/01/24 18:30 Free Thyroxine (T4) Calculated 1.06 ng/dL (0.89-1.76) Total Triiodothyronine (TT3) 0.80 ng/mL (0.60-1.81) Lactic Acid Level 1.0 mmol/L (0.4-2.0) Lipase 31 U/L (12-53) Thyroid Stimulating Hormone (TSH) 1.19 uIU/mL (0.55-4.78) Other Laboratory Tests 07/04/24 06:24 Brief Hx & Hospital Course: Xochitl Lane is a 73-year-old female with a PMH of AFib, type 2 DM, HTN, dementia, bipolar, anxiety, HLD, thyroid disorder, presented to the ED with the chief complaints of abdominal pain. Patient is poor historian, reported she had mechanical fall 2 weeks ago and hit her head but did not went to hospital, patient reported she is living [facility], reported she has been having abdominal pain for last 3 days, started in the epigastric region, agonizing pain, 10/10 with the beginning, intermittent, radiating to the back. Patient also reported having dysuria for last couple of days but could not mentioned exact days. Patient reported nausea but no vomiting. On further discussion patient also endorsed chronic constipation, last bowel movement was today but small amount. Patient denied any fever, acute diarrhea. acute joint pain or swelling, chest pain or shortness of breaths. The patient was admitted with intractable abdominal pain and was diagnosed with acute gastritis, dehydration, and constipation. A CT scan of the abdomen and pelvis without contrast (CT CT AB PEL WO CON-NO ORAL OR IV: 2) revealed no findings suggestive of bowel obstruction, though stool was noted throughout the colon. The patient was treated with Protonix, Carafate, and a GI cocktail, and showed clinical improvement and patient was advised to take enema but patient refused so given lactulose t.i.d. A head CT showed chronic ischemic changes without evidence of an acute intracranial process, along with paranasal sinus disease. The patient also experienced a mechanical fall, and dementia was suspected; a head CT was ordered and results were pending at the time. Additionally, the patient was treated for an acute complicated urinary tract infection with Rocephin. Other chronic conditions included atrial fibrillation with a secondary hypercoagulable state, hypertension, hyperlipidemia, hypothyroidism, and possible bipolar disorder or anxiety. Medications included metoprolol for rate control, continuation of home Eliquis 5 mg, levothyroxine, and Seroquel. Constipation was managed with lactulose 30 mL t.i.d., though the patient refused enemas. Acute kidney injury was ruled out. The patients condition improved, and she was hemodynamically stable at discharge. She was discharged back to her previous living facility with optimal medical treatment and advised to follow up with her primary care provider. Pt is lying on bed General Appearance: Alert, Oriented X3, Cooperative, Not in acute distress HEENT: Atraumatic, Mucous membranes moist/pink Respiratory: Clear to auscultation, Normal air movement, No added sounds Cardiovascular: Regular rate, Normal S1, Normal S2, No murmurs Abdominal: Generalized abdominal tenderness Extremities: No edema, Normal pulses, No tenderness/swelling Skin: No Significant rash, except past surgical scars Neuro: Normal speech, sensorimotor deficits none Psych/Mental Status: Mental status NL, Mood NL Nurse was there as sharperone during examination Operations or Procedures CT CT AB PEL WO CON-NO ORAL OR IV: . No CT findings to suggest bowel obstruction. There is stool noted throughout the colon.- Head CT : IMPRESSION: 1. Chronic ischemic changes without evidence of acute intracranial process. 2. Paranasal sinus disease Condition at Discharge: Stable Final Diagnosis/Problems List # Intractable abdominal pain # Acute Gastritis # Dehydration # Mechnical fall # ? Dementia # acute complicated UTI # AFib with secondary hypercoagulable state # HTN # HLD # Severe Constipation # Ruled out LISSET # Hypothyroidism # Bipolar/anxiety? Discharge Disposition: Assisted Living Facility Discharge Instruct/Medications Diet: Consistent carbohydrate, Cardiac 2g Na,low cholest Activity: No Restrictions, As Tolerated Follow Up/Referral: PCP Discharge Clinic Medications: sucralfate 1 g oral 3 times daily for 30 days Levothyroxine 75 mcg daily Docusate 100 mg daily 2 times as needed MiraLax 17 g daily for 7 days Resume home medications Discharge Statement: "Patient was advised to return to the ER or call 911 if any headaches, dizziness, shortness of breath, chest pain, abdominal pain, bleeding, fevers, or worsening of medical condition. Patient was counseled about treatment plan, medications, possible side effects, patientverbalized understanding. All questions were answered to the best of my ability. This discharge took greater then 30 minutes in planning, reviewing documentation, counseling the patient, and discussing with other team members." ASSESSMENT ASSESSMENT Assessment # Intractable abdominal pain # Acute Gastritis # Dehydration # Mechnical fall # ? Dementia # acute complicated UTI # AFib with secondary hypercoagulable state # HTN # HLD # Severe Constipation # Ruled out LISSET # Hypothyroidism # Bipolar/anxiety? Date of Service: July 04, 2024 Billing Provider: HEATHER BLACKWELL MD Common Visit Codes: [id number]/[id number] DISCH DAY >30min ABI OMER RESIDENT July 04, 2024 11:20 HEATHER BLACKWELL MD July 08, 2024 00:29
== END 2024-07-04 17:00 | disposition home or self-care (01) | DRG 392 ==
LOC: ER 15:56 → EDBD 15:56 → EDUNIT# 15:56 → OVERFLOW 21:09 → CENTRAL 07-02 21:49
PROVIDERS: ADMIT Student in an Organized Health Care Education/Training Program; ATTEND Emergency Medicine
DX: K29.00 Acute gastritis without bleeding (principal); F03.93 Unspecified dementia, unspecified severity, with mood disturbance; N39.0 Urinary tract infection, site not specified; D68.69 Other thrombophilia; F03.94 Unspecified dementia, unspecified severity, with anxiety; I10 Essential (primary) hypertension; E03.9 Hypothyroidism, unspecified; E11.9 Type 2 diabetes mellitus without complications; F31.9 Bipolar disorder, unspecified; Z20.822 Contact with and (suspected) exposure to COVID-19; I48.91 Unspecified atrial fibrillation; E86.0 Dehydration; E78.5 Hyperlipidemia, unspecified; K59.09 Other constipation; E07.9 Disorder of thyroid, unspecified; Z88.5 Allergy status to narcotic agent; Z88.0 Allergy status to penicillin; Z90.49 Acquired absence of other specified parts of digestive tract
CPT/HCPCS: 36415; 70450; 71045; 74176; 80048; 80053; 81001; 83605; 83690; 83735; 84439; 84443; 84480; 85025; 87081; 87086; 87426; 87804; 93005; 94640; G0378; J2470